=== PATIENT | female | born 1935 | race Caucasian/White ===

== ENCOUNTER 2017-01-26 16:16 | Inpatient (IN) | payer MEDICARE, OTHER ==
[~2017-01-26 16:16] MED LIST: ISOVUE-370 76%-LOCM 1 ML ONE
[2017-01-26 16:54] LABS: #Basophils 0.1 thou/uL (0.0-0.2); #Eosinphils 0.2 thou/uL (0.0-0.7); #Lymphocytes 4.3 thou/uL (1.20-3.40); #Monocytes 1.2 thou/uL (0.11-0.59); %Basophils 0.6 % (0.0-1.0); %Eosinophils 1.5 % (0.0-10.0); %Lymphocytes 28.7 % (21.0-51.0); %Monocytes 8.2 % (0.0-10.0); Mean Platelet Volume 7.5 fL (7.4-10.4); Red Blood Cell (RBC) Count 4.37 mill/uL (4.20-5.40); White Blood Cell (WBC) Count 14.8 thou/uL (4.8-10.8)
--- NOTE | 2017-01-26 17:03 | RAD ---
RADIOGRAPH CHEST 1 VIEW: HISTORY: 81-year-old female with acute chest pain. FINDINGS: There are no air space densities, pulmonary edema, pneumothorax, or cardiomegaly. The lateral costo phrenic angles are sharp. IMPRESSION: 1. No acute cardiopulmonary findings. 2. Cluster of surgical clips in the left anterior chest wall. 3. Status post right shoulder rotator cuff repair. 4. No interval change since 11/10/15. Dyllan sandra POS: [facility]
[2017-01-26 17:15] LABS: ALT (SGPT) 12 U/L (8-55); AST (SGOT) 20 U/L (5-34); Alkaline Phosphatase 55 U/L (40-150); Anion Gap 16 mmol/L (10-20); BUN (Urea Nitrogen) 23 mg/dL (9.8-20.1); Bilirubin, Total 0.4 mg/dL (0.2-1.2); Calc. Creatinine Clearance 0 mL/min (70-130); Carbon Dioxide 21 mmol/L (23-31); Chloride 104 mmol/L (98-107); Estimated GFR-MDRD 69; Globulin 2.7 g/dL (2.4-3.5); Lipase 61 U/L (8-78); Protein, Total 6.6 g/dL (6.0-8.3)
[2017-01-26 17:23] LABS: Troponin I 0.069 ng/mL (< 0.028)
[2017-01-26] MEDS ORDERED: Nitroglycerin 0.4 MG TAB (25 Tab Bottle) ONE (17:24)
[2017-01-26] MEDS ORDERED: Enoxaparin Sodium 80 MG/0.8 ML SYRINGE ONE (19:02)
[2017-01-26] MEDS ORDERED: Ondansetron HCl/PF 4 MG/2 ML Vial IVP PRN (19:17)
[2017-01-26] MEDS ORDERED: Calcium Carbonate 500 MG ChewTAB PO PRN (19:17)
[2017-01-26] MEDS ORDERED: Nitroglycerin 0.4 MG TAB (25 Tab Bottle) PO PRN (19:17)
--- NOTE | 2017-01-26 19:27 | CT ---
CT BRAIN NONCONTRAST: HISTORY: An 81-year-old female, status post acute head trauma from fall due to syncope. FINDINGS: There is no midline shift or any other mass effect. There is no evidence of acute intracranial hemo rrhage, large cortical infarct, obstructive hydrocephalus, or extraaxial fluid collection. The calv arium is intact. There is diffuse parenchymal volume loss. There are low attenuation areas in the white matter. These are nonspecific, but in a patient of this age, they are probably chronic ischem ic white matter changes due to microvascular atherosclerosis. IMPRESSION: 1) No acute intracranial findings. 2) Involutional changes and chronic ischemic white matter changes. 3) Acute, traumatic superficial soft tissue contusion of the left premaxillary face. 4) Severe partial opacification of the left maxillary sinus, moderately worse than on 06/20/2016. zarina [] POS: [facility]
[2017-01-26] MEDS ORDERED: Clopidogrel Bisulfate 300 MG TAB PO SCH (19:30)
--- NOTE | 2017-01-26 19:31 | CT ---
CT MAXILLOFACIAL NONCONTRAST: HISTORY: An 81-year-old female, status post acute facial trauma due to fall. FINDINGS: Soft tissue swelling with edema and contusion of the left premaxillary superficial tissues, extendin g to the left infraorbital region. No evidence of acute fracture. No intraorbital hematoma, edema, or gas. Left maxillary sinus is approximately 90% opacified with soft tissue density material. Th ere is diffuse osseous wall thickening of the left maxillary sinus, indicating chronic, longstanding left maxillary sinusitis. The right maxillary sinus, frontal sinuses, right ethmoid air cells, and sphenoid sinus, are clear. There is mild mucosal thickening in some of the left anterior ethmoid a ir cells. IMPRESSION: 1. No fracture. 2. Acute, traumatic, left infraorbital, premaxillary superficial soft tissue contusion. 3. Chronic left maxillary sinusitis, in an occlusive pattern, with near-total opacification. POS: [facility]
--- NOTE | 2017-01-26 19:41 | CT ---
CTA THORAX WITH CONTRAST: (Computed Tomographic Angiography, chest (noncoronary) with contrast material, and image post proces sing) (PE protocol) HISTORY: An 81-year-old female with syncope and chest pain. TECHNIQUE: IV injection of iodinated contrast: Isovue. Scan acquisition timing attempted to coincide with iodinated contrast bolus reaching maximal density in pulmonary arteries. 3D MIP reconstructions. FINDINGS: Pulmonary thromboembolism: None. Lungs: Clear. Pneumothorax: None. Pleural effusion: None. Thoracic aorta: No aneurysm or dissection. Mediastinum: No lymphadenopathy or other mass. Serenity: No lymphadenopathy or other mass. IMPRESSION: Normal. zarina[] POS: [facility]
[2017-01-26 20:13] LABS: Troponin I 0.058 ng/mL (< 0.028)
[2017-01-26 21:55] VITALS: BMI 27.6
[2017-01-26] MEDS ORDERED: ALPRAZolam 0.25 MG TAB PO SCH (23:15)
[2017-01-26] MEDS ORDERED: diphenhydrAMINE 50 MG CAP PO SCH (23:15)
[2017-01-26] MEDS: Sodium Chloride 0.9% 1,000 ML IV SCH (23:37)
[2017-01-26] MEDS: Carvedilol 3.125 MG TAB PO SCH (23:37)
[2017-01-26] MEDS: Docusate 100 MG CAP PO SCH (23:37)
[2017-01-26 23:54] LABS: Bilirubin Negative (Negative); Blood, Urine Trace (Negative); Glucose, Urine (Dipstick) Negative (Negative); Ketone, Urine Negative (Negative); Nitrite Negative (Negative); Protein, Urine (Dipstick) Negative (Neg-Trace); Urobilinogen 0.2 mg/dL (0.2-1.0)
[2017-01-26 23:58] LABS: Bacteria/HPF None Seen HPF (None Seen); Hyaline Casts/LPF 0-3 HYALINE CAST LPF (0-3 Hyaline); Squamous Epithelial 0-3 HPF (0-3); WBC/HPF 0-3 HPF (0-3)
[2017-01-27 02:37] LABS: #Basophils 0.1 thou/uL (0.0-0.2); #Eosinphils 0.4 thou/uL (0.0-0.7); #Lymphocytes 3.8 thou/uL (1.20-3.40); #Monocytes 0.7 thou/uL (0.11-0.59); %Basophils 0.8 % (0.0-1.0); %Eosinophils 3.7 % (0.0-10.0); %Lymphocytes 38.1 % (21.0-51.0); Mean Platelet Volume 7.4 fL (7.4-10.4); Red Blood Cell (RBC) Count 4.22 mill/uL (4.20-5.40)
[2017-01-27 02:58] LABS: Troponin I 0.053 ng/mL (< 0.028)
[2017-01-27 03:07] LABS: Anion Gap 13 mmol/L (10-20); BUN (Urea Nitrogen) 15 mg/dL (9.8-20.1); Calc. Creatinine Clearance 78 mL/min (70-130); Calcium 8.3 mg/dL (7.8-10.44); Carbon Dioxide 22 mmol/L (23-31); Chloride 106 mmol/L (98-107); Estimated GFR-MDRD 84
--- NOTE | 2017-01-27 06:42 | HP ---
PRIMARY CARE PHYSICIAN: Will Hoff M.D. CHIEF COMPLAINT: Syncopal episode. HISTORY OF PRESENT ILLNESS: This is an 81-year-old pleasant lady who was apparently in usual state of health, had a syncopal episode yesterday in the morning, she did not think much about it, but she had another one at 2:00 in the afternoon. She had called her son who lives at [place] who came in today and today in the morning, she had a similar episode in the bathroom because they were verónica rned they brought her to the emergency room. There was no chest pain preceding or dizziness precedi ng the episode. There is no bowel or urinary incontinence. The second time she fell face first and has a bruise under the left eye. The patient denies any fever or chills, or any dysuria or diarrhe a. Because the family was concerned she was brought to the emergency room for further evaluation an d treatment, duration of the syncopal episode is not known to them. PAST MEDICAL HISTORY: Significant for hyperlipidemia; hypertension; breast cancer; status post radi ation and chemotherapy surgery, which was done in 2001; skin melanoma, status post surgery. MEDICATIONS: Please see MAR. SOCIAL HISTORY: Lives at [facility], does not smoke drink or do recreational d rugs. Drinks a glass of wine now and then. PAST SURGICAL HISTORY: Significant for hysterectomy, lumpectomy in 2001, tonsillectomy, adenoidecto my, right rotator cuff surgery, bladder suspension surgery. ALLERGIES: MORPHINE, which makes her crazy. FAMILY HISTORY: Negative for diabetes and hypertension. REVIEW OF SYSTEMS: Significant for syncopal episode. Otherwise, no fever, no chills, no headache, no eye pain, no hearing loss, no latencies. No cough, no chest pain, diarrhea, dysuria, or polyuria . No memory or mood changes. No neck pain. The patient is usually very independent for activities of daily life. PHYSICAL EXAMINATION: VITAL SIGNS: Blood pressure is 171/82, pulse is 81, respirations 20, temperature afebrile, satting 99% on room air. GENERAL: Patient is lying in bed, in no apparent distress. HEENT: Atraumatic and normocephalic. Pupils are equally round and reactive to light. Extraocular movements are intact. Mucous membranes are moist. NECK: No JVD, as mentioned earlier. SKIN: Showed bruise under the left eye. CHEST: Breath sounds heard. There are no rales or rhonchi. CARDIAC: S1, S2. No murmurs or gallops. ABDOMEN: Soft, nontender. EXTREMITIES: No cyanosis, clubbing or edema. Distal pulses present. NEUROLOGIC: Alert, awake, oriented. No cranial deficits. No sensorimotor deficits. LABORATORY DATA: Chest x-ray is negative. UA is negative. BNP 276. D-dimer was 0.34. Lipase is 61. CK is 69. Troponin is mildly elevated at 0.06. Potassium was 3.3, creatinine is 0.8. WBC cou nt is 14.8, hemoglobin is 14. The patient's brain CT, CTA and facial CT are pending. ASSESSMENT AND PLAN: 1. Syncopal episode x3 to rule out neurocardiogenic causes. We will consult Cardiology. Trend tro ponins, echocardiogram, orthostatic vitals. 2. Status post fall with left facial bruise. We will monitor that and ice it. 3. Elevated troponin, possibly non-ST elevation myocardial infarction. ER already gave her one the rapeutic dose of Lovenox. We will put her on aspirin and one dose of Plavix. 4. Hypokalemia. We will replace that. 5. Hypertension, stable. 6. Hyperlipidemia, stable. 7. Breast cancer, skin melanoma, stable. 8. Sequential compression devices for deep venous thrombosis prophylaxis. I will work with consult julien in further caring for the patient.
[2017-01-27] MEDS ORDERED: FLU VACC TS2017-18 (>65YR) 0.5 ML SYRINGE IM ONE (09:00)
--- NOTE | 2017-01-27 10:47 | PDOC.PN ---
- Subjective Encounter Start Date: 01/27/17 Encounter Start Time: 10:44 Patient seen and examined. No new complaints. No overnight events - Objective MAR Reviewed: Yes Vital Signs & Weight: Vital Signs (12 hours) Temp Pulse Resp BP Pulse Ox 01/27/17 04:00 98.0 F 102 H 20 177/88 H 98 01/27/17 00:00 89 20 156/74 H Weight Weight 171 lb I&O: 01/26/17 01/27/17 01/28/17 06:59 06:59 06:59 Intake Total 590 Balance 590 Result Diagrams: 01/27/17 02:17 01/27/17 02:17 Phys Exam - Physical Examination Constitutional: NAD HEENT: PERRLA bruise seen below lt eye Neck: no JVD Respiratory: no wheezing Cardiovascular: no significant murmur Gastrointestinal: non-tender Musculoskeletal: pulses present Neurological: moves all 4 limbs Psychiatric: A&O x 3 Skin: normal turgor Dx/Plan (1) Syncopal episodes Code(s): R55 - SYNCOPE AND COLLAPSE Status: Acute (2) Elevated troponin Code(s): R74.8 - ABNORMAL LEVELS OF OTHER SERUM ENZYMES Status: Acute (3) HTN (hypertension) Code(s): I10 - ESSENTIAL (PRIMARY) HYPERTENSION Status: Acute (4) Hyperlipidemia Code(s): E78.5 - HYPERLIPIDEMIA, UNSPECIFIED Status: Acute (5) Hypokalemia Code(s): E87.6 - HYPOKALEMIA Status: Acute - Plan * cta- neg * ct brain neg * echo pending * f/u card and neuro rec's
--- NOTE | 2017-01-27 13:38 | CON ---
DATE OF CONSULTATION: 01/27/2017 REASON FOR CONSULTATION: Syncope. HISTORY OF PRESENT ILLNESS: Ms. Montez is a very pleasant 81-year-old woman with no previous history of coronary artery disease who recently presented with syncope. She has had 3 total syncopal episo coleen over the last several days. No predisposing factors present. No signs or symptoms noted prior to the syncopal episode. She did have a facial trauma noted after her last episode. She also compl ained of chest pain. The chest pain has occurred over the last 2-3 months. It occurred every 2-3 d ays, lasting minutes to hours. This pain occurs at night. It may be worse with deep breath. PAST MEDICAL HISTORY: Hyperlipidemia, hypertension, breast cancer, skin melanoma. SOCIAL HISTORY: No tobacco or alcohol use. PAST SURGICAL HISTORY: Hysterectomy, rotator cuff surgery, bladder suspension, lumpectomy, tonsille ctomy. ALLERGIES: MORPHINE. REVIEW OF SYSTEMS: Ten point review of systems reviewed and as above, otherwise negative. PHYSICAL EXAMINATION: GENERAL: Patient is a pleasant female who is in no acute distress. The patient appears her stated age. VITAL SIGNS: Blood pressure 180/88, pulse 100, temperature 98.3. NEUROLOGIC: The patient is alert and oriented times 3 with no focal neurologic deficits. HEENT: Sclerae without icterus. Mouth has moist mucous membranes with normal pallor. NECK: No JVD. Carotid upstroke brisk. No bruits bilaterally. LUNGS: Clear to auscultation with unlabored respirations. BACK: No scoliosis or kyphosis. CARDIAC: Regular rate and rhythm with normal S1 and S2. No S3 or S4 noted. No significant rubs, m urmurs, thrills, or gallops noted throughout the precordium. PMI is not displaced. There is no par asternal heave. ABDOMEN: Soft, nontender, nondistended. No peritoneal signs present. No hepatosplenomegaly. No a bnormal striae. EXTREMITIES: 2+ femoral and 2+ dorsalis pedis pulses. No cyanosis, clubbing, or edema. SKIN: No gross abnormalities. LABORATORY DATA: Creatinine 0.87. Peak troponin 0.069. EKG shows normal sinus rhythm with left bu ndle branch block. IMPRESSION: 1. Syncope. 2. Left bundle branch block. 3. Chest pain. RECOMMENDATIONS: Ms. Montez likely has a sick sinus syndrome given her symptoms in addition to left bundle branch block. I am concerned about her chest pain, we would recommend a noninvasive stress s tudy prior to proceeding with EP study or EP consult. If her stress study is negative for ischemia, we would then proceed with EP consultation in a.m. for possible EP study and a pacemaker versus imp lantable loop recorder versus 30-day event recorder. We will discuss with Dr. Odonnell tomorrow.
[2017-01-27] MEDS ORDERED: AMINOPHYLLINE IVPB SCH (15:30)
[2017-01-27] MEDS ORDERED: Metoprolol Tartrate 5 MG/5 ML VIAL IVP SCH (15:45)
[2017-01-27] MEDS ORDERED: Regadenoson 0.4 MG/5 ML SYRINGE ONE (16:42)
[2017-01-27] MEDS: Docusate 100 MG CAP PO SCH ×2 (17:24→21:07)
[2017-01-27] MEDS: Carvedilol 3.125 MG TAB PO SCH ×2 (17:24→21:08)
[2017-01-27] MEDS: Aspirin 325 MG TAB PO SCH (17:40)
[2017-01-27] MEDS: Enoxaparin Sodium 40 MG/0.4 ML SYRINGE SC SCH (17:40)
[2017-01-27] MEDS: Venlafaxine HCl XR 75 MG CAP PO SCH (17:41)
[2017-01-27] MEDS: Lisinopril 20 MG TAB PO SCH (17:41)
[2017-01-27] MEDS: Sodium Chloride 0.9% 1,000 ML IV SCH (17:46)
[2017-01-27] MEDS ORDERED: Sodium Chloride 0.9% 10 ML ONE (17:51)
--- NOTE | 2017-01-27 18:15 | NM ---
NUCLEAR MEDICINE CARDIAC MYOCARDIAL PERFUSION SPECT EJECTION FRACTION STUDY WALL MOTION CINE: HISTORY: 81-year-old female with hypertension, coronary artery disease and dyslipidemia presents with syncope and chest pain. TECHNIQUE: Number of days: 1 Rest study: Tc99m sestamibi (Cardiolite) dose: 9.8 mCi Pharmacologic stress: Lexiscan dose: 0.4 mg Stress study: Tc99m sestamibi (Cardiolite) dose: 28.5 mCi FINDINGS: CARDIAC (MYOCARDIAL PERFUSION) SPECT There are no reversible myocardial perfusion defects. EJECTION FRACTION STUDY EF = 77% WALL MOTION CINE Normal. IMPRESSION: No evidence of reversible ischemia. ARI Olea POS: [facility]
[2017-01-27] MEDS ORDERED: ALPRAZolam 0.25 MG TAB PO SCH (20:30)
[2017-01-27] MEDS ORDERED: diphenhydrAMINE 25 MG CAP PO SCH (20:30)
--- NOTE | 2017-01-28 00:02 | CON ---
DATE OF CONSULTATION: 01/27/2017 REFERRING PROVIDER: Vamshi Peterson MD REASON FOR CONSULTATION: Syncope. HISTORY OF PRESENT ILLNESS: Ms. Montez is a pleasant 81-year-old female, who has been cons idered for evaluation of a syncopal episode. The patient reports that she had 2 episodes of passing out on day before yesterday. For this reason, she had called her son who lives in [facility], who came to see her and she passed out again in front of him. She passed out for a few seconds. Th ere were no tonic-clonic convulsions, no tongue biting, no loss of bladder control noted. She had n o postictal confusion. She has no prior history of seizure disorder. She has no prior history of h ead trauma or [employer] infection. She has not had any more episode of passing out since being admitted t o the hospital. PAST MEDICAL HISTORY: Significant for hypertension, hyperlipidemia, breast cancer, skin melanoma. PAST SURGICAL HISTORY: Significant for radiation therapy and chemotherapy for breast cancer, and sk in melanoma removal, hysterectomy, lumpectomy, tonsillectomy, adenectomy, right rotator cuff surgery , and bladder suspension surgery. CURRENT MEDICATIONS: Please review MAR. ALLERGIES: Include MORPHINE. FAMILY HISTORY: None significant. SOCIAL HISTORY: She currently lives at [facility]. She denies smoking, alcoho l use, or illicit drug use. REVIEW OF SYSTEMS: As mentioned in the HPI, otherwise negative. PHYSICAL EXAMINATION: VITAL SIGNS: Blood pressure of 168/86, pulse of 120, temperature of 98, respirations of 16, O2 sats of 95% on room air. GENERAL: Well-developed, well-nourished female, in no apparent distress. RESPIRATORY: Clear to auscultation bilaterally. CARDIOVASCULAR: Regular rate and rhythm. NEUROLOGIC: Mental status: The patient is awake, alert, oriented x3. Speech and language: Fluent speech. Cranial nerves: Pupils are 3 mm and reactive. Visual erickson are intact. Extraocular are intact. No nystagmus is noted. Face is symmetric. Tongue and uvula are midline. Motor exam show ed normal tone and bulk with a 5/5 strength in both lower extremities. Sensory: Sensation is intac t and symmetric. Deep tendon reflexes 1-2+ reflexes in both upper and lower extremities. Babinski: Plantar responses flexion bilaterally. Coordination intact to [id number], finger tapping bilaterally. LABORATORY DATA: Reviewed, which included CBC, D-dimer, BMP, lipid profile, troponin, CK-MB, CPK, a nd urinalysis, which is significant for total cholesterol of 285, LDL of 165, triglycerides of 345, HDL of 51, otherwise unremarkable. IMAGING STUDIES: CT head without contrast was reviewed, which showed no acute intracranial abnormal ity. IMPRESSION: Syncope, likely cardiogenic in origin. ASSESSMENT AND PLAN: Ms. Montez is a pleasant 81-year-old female, who presented with recur rent syncopal spells. Based on the description of the spells, this is likely cardiogenic in origin. At this time, I would recommend continuing to follow with Cardiology. No further neurological wor kup needed from my standpoint. Thank you for consultation.
[2017-01-28 06:02] LABS: #Eosinphils 0.5 thou/uL (0.0-0.7); #Lymphocytes 2.3 thou/uL (1.20-3.40); #Monocytes 0.7 thou/uL (0.11-0.59); #Neutrophils 4.2 thou/uL (1.40-6.50); %Basophils 0.4 % (0.0-1.0); %Eosinophils 6.5 % (0.0-10.0); %Lymphocytes 29.4 % (21.0-51.0); %Monocytes 9.6 % (0.0-10.0); Hematocrit 46.6 % (36.0-47.0); Mean Platelet Volume 7.9 fL (7.4-10.4); White Blood Cell (WBC) Count 7.8 thou/uL (4.8-10.8)
[2017-01-28 06:30] LABS: Anion Gap 14 mmol/L (10-20); BUN (Urea Nitrogen) 11 mg/dL (9.8-20.1); Calc. Creatinine Clearance 71 mL/min (70-130); Calcium 9.1 mg/dL (7.8-10.44); Carbon Dioxide 26 mmol/L (23-31); Chloride 103 mmol/L (98-107); Estimated GFR-MDRD 75
[2017-01-28] MEDS: Carvedilol 3.125 MG TAB PO SCH ×2 (10:13→20:21)
[2017-01-28] MEDS: Venlafaxine HCl XR 75 MG CAP PO SCH (10:13)
[2017-01-28] MEDS: Lisinopril 20 MG TAB PO SCH (10:13)
[2017-01-28] MEDS: Aspirin 325 MG TAB PO SCH (10:13)
[2017-01-28] MEDS: Docusate 100 MG CAP PO SCH ×2 (10:14→20:21)
[2017-01-28] MEDS: Enoxaparin Sodium 40 MG/0.4 ML SYRINGE SC SCH (10:14)
[2017-01-28] MEDS ORDERED: Propofol 1,000 MG/100 ML VIAL IV ONE (12:40)
[2017-01-28] MEDS ORDERED: Propofol 200 MG/20 ML VIAL ONE (13:18)
[2017-01-28] MEDS ORDERED: PHENYLEPHRINE-NS 100 MCG/ML 10 ML SYRINGE ONE (13:18)
[2017-01-28] MEDS ORDERED: Labetalol HCl 100 MG/20 ML SYR ONE (13:18)
[2017-01-28] MEDS ORDERED: Isoproterenol 0.2 MG/1 ML AMP ONE (14:03)
[2017-01-28] MEDS ORDERED: Propofol 500 MG/50 ML VIAL ONE (14:32)
[2017-01-28] MEDS ORDERED: Fentanyl 100 MCG/2 ML VIAL ONE (15:54)
[2017-01-28] MEDS ORDERED: Promethazine HCl 25 MG/ML VIAL SLOW IVP PRN (15:58)
[2017-01-28] MEDS ORDERED: Ondansetron HCl/PF 4 MG/2 ML Vial IVP PRN ×2 (15:58→16:03)
[2017-01-28] MEDS ORDERED: Promethazine HCl 25 MG/ML VIAL IM PRN (15:58)
[2017-01-28] MEDS ORDERED: Nitroglycerin 0.4 MG TAB (25 Tab Bottle) SL PRN (16:03)
[2017-01-28] MEDS ORDERED: Silver Sulfadiazine 1% Cream 50 GM JAR TOP PRN (16:03)
[2017-01-28] MEDS ORDERED: Mag-Al 1200 mg/1200 mg/30 ML UDCUP PO PRN (16:03)
[2017-01-28] MEDS ORDERED: Bisacodyl 10 MG SUPP PR PRN (16:03)
[2017-01-28] MEDS ORDERED: traMADol HCl 50 MG TAB PO PRN (16:03)
[2017-01-28] MEDS ORDERED: Bisacodyl 5 MG TAB PO PRN (16:03)
--- NOTE | 2017-01-28 16:57 | PDOC.PN ---
- Subjective Encounter Start Date: 01/28/17 Encounter Start Time: 16:51 Patient seen and examined. No new complaints. No overnight events stress test normal - Objective Resuscitation Status: Resuscitation Status DNR:Do Not Resuscitate MAR Reviewed: Yes Vital Signs & Weight: Vital Signs (12 hours) Temp Pulse Resp BP BP Pulse Ox 01/28/17 16:20 97.6 F 73 20 162/83 H 01/28/17 10:13 163/91 H 01/28/17 08:05 98.4 F 109 H 20 163/91 H 97 Weight Weight 171 lb I&O: 01/27/17 01/28/17 01/29/17 06:59 06:59 06:59 Intake Total 590 240 Output Total 300 Balance 590 -60 Result Diagrams: 01/28/17 04:45 01/28/17 04:45 Phys Exam - Physical Examination Constitutional: NAD HEENT: PERRLA Neck: no JVD Respiratory: no wheezing Cardiovascular: no significant murmur Gastrointestinal: no distention Musculoskeletal: pulses present Psychiatric: A&O x 3 Skin: normal turgor Dx/Plan (1) Syncopal episodes Code(s): R55 - SYNCOPE AND COLLAPSE Status: Acute Comment: ? due to sss (2) Elevated troponin Code(s): R74.8 - ABNORMAL LEVELS OF OTHER SERUM ENZYMES Status: Acute (3) HTN (hypertension) Code(s): I10 - ESSENTIAL (PRIMARY) HYPERTENSION Status: Acute (4) Hyperlipidemia Code(s): E78.5 - HYPERLIPIDEMIA, UNSPECIFIED Status: Acute (5) Hypokalemia Code(s): E87.6 - HYPOKALEMIA Status: Acute - Plan * cont current mx * f/u dr grimes plan
[2017-01-28] MEDS: Cephalexin 250 MG CAP PO SCH ×2 (17:47→20:21)
[2017-01-28] MEDS ORDERED: HYDROcodone/Acetaminophen 5/325 mg Tablet PO PRN (18:15)
[2017-01-28] MEDS: hydrALAZINE 20 MG/ML VIAL SLOW IVP PRN (18:36)
[2017-01-28] MEDS ORDERED: Sodium Chloride 0.9% 10 ML ONE (18:38)
[2017-01-28] MEDS: HYDROcodone/Acetaminophen 5/325 mg Tablet PO PRN (18:41)
--- NOTE | 2017-01-28 19:47 | CON ---
DATE OF SERVICE: 01/28/2017 ELECTROPHYSIOLOGY CONSULTATION REPORT REFERRING PHYSICIAN: Dr. Raúl Birmingham. I am seeing Mrs. Montez at [facility] telemetry floor as an electrophysiology specification consultant for the following problems: 1. Recurrent syncopal spells. 2. Frequent premature ventricular contractions in bigeminal fashion on the initial EKG. 3. Baseline right bundle branch block. 4. Negative cardiac workup so far with LVEF 55-60% and no ischemia on Lexiscan stress test. 5. Past history with coronary artery risk factors including hyperlipidemia and hypertension. 6. Remote history of breast cancer, status post chemotherapy and surgery and radiation in 2001. ALLERGIES: MORPHINE. MEDICATIONS AT HOME: Included multivitamins, Tylenol p.r.n., venlafaxine, omeprazole, metoprolol, a rtificial tears, diphenhydramine, probiotic, lisinopril, glucosamine, Boswellia, Osteo Bi-Flex, alpr azolam. Of note, metoprolol has recently decreased hence history of depression. SUBJECTIVE: Ms. Montez is here because of recurrent syncopal spell. She had about 3 episodes over t he last 3 days prior to her admission. All these episodes were preceded by ways of dizziness, but e ventually culminating a some loss of consciousness. Episode not associated with incontinence or sei zures. The episodes are severe enough to have significant facial trauma, falling on her face. Sign ificant bruising is noted from the last episode. She cannot recall any coronary palpitations; some atypical chest tightness sensations are noted. No fever, chills or cough. No stroke-like symptoms, no diarrhea, vomiting, normal p.o. fluid intake are noted. the rest of 12-point review of system i s otherwise unremarkable PAST MEDICAL HISTORY: As above. Also has history of skin melanoma post-excision. SOCIAL HISTORY: Patient is in [employer] independent [facility] facility. Drinks alcohol on social bas is only. Denies smoking or drug use. FAMILY HISTORY: Negative for diabetes and hypertension. OBJECTIVE DATA: VITAL SIGNS: Blood pressure 163/91, heart rate 109, respirations 20, temperature 98.4 degrees Fahre nheit. GENERAL: Reveals alert and oriented elderly woman who appears younger than her stated age, in no ap parent distress. NECK: Supple. Jugular veins are not distended. No carotid bruits are heard. CHEST: Coarse, no crackles. CARDIOVASCULAR: Heart sounds are regular to rate and rhythm. No murmur or gallop. ABDOMEN: Benign. Bowel sounds positive. EXTREMITIES: Lower extremities without edema, clubbing or cyanosis. DATABASE: EKGs reviewed. Initial EKG reveals sinus rhythm with frequent bigeminy and PVCs. Subseq uent EKG reveals sinus rhythm. All EKGs show a left bundle branch block pattern. Appropriate ST-T swings. LABORATORY DATA: White cell count initially 14.8, 7.8, hemoglobin 14.2, platelet count is 290 . Sodium 139, potassium 3.8, BUN is 11, creatinine is 0.74, repeat troponins are 0.069, 0.058, and 0.053, borderline elevated. Brain CT was unremarkable except for the hematoma around the ocular area. No ischemic white matter changes are seen. The chest x-ray was showing signs of prior left breast surgery. Evidence of right shoulder rotator cuff repair signs are seen. ASSESSMENT AND PLAN: Ms. Montez is a pleasant 81-year-old woman without much cardiac history who pre sented with recurrent syncopal spell which do impress me as possibly cardiogenic. Although she has frequent PVCs, but her rates are not extreme, the presentation by itself does not explain her event. Tachycardic and bradyarrhythmias could be potentially causing her frequent recurrent syncopal spel ls and she also has signs of conduction disease on her EKG. So far cardiac workup otherwise unremar kable, I discussed the potential treatment options with her. Considering arrhythmias, potentially t he recent decrease of her beta ninoska therapy might have been the factor which could have brought t hese events out to the daylight. To further evaluate her tendency for arrhythmias as well as to ass ess the extent of her conduction disease, an EP study would be very reasonable in this lady If foca l arrhythmias are seen, possible ablation procedure were also could be a consideration. On the othe r hand, significant conduction disease present or further AV zhou blocking agents are necessary for controlling her arrhythmias which might require pacing support, possible device therapy, also consi deration depending on the findings, pacemaker or defibrillator could be also considered. If no definite course or abnormality found, a loop recorder implant also a reasonable choice as well . I discussed these tests, the risks, benefits, and potential outcomes from the procedures with the penny lozoyant and the family was present. Risks and benefits detailed including a chance of bleeding, infec tion, pneumothorax, tamponade, recurrences all detailed. They understand agreeing to proceed. We w ill schedule her on for the nearest time. Thank you again for allowing me to participate in the care of this patient.
[2017-01-28] MEDS: Temazepam 15 MG CAP PO PRN (20:22)
[2017-01-28] MEDS ORDERED: ALPRAZolam 0.25 MG TAB PO SCH (21:30)
--- NOTE | 2017-01-28 21:41 | OP ---
DATE OF SERVICE: 01/28/2017 ELECTROPHYSIOLOGY STUDY REFERRING PHYSICIAN: Raúl Birmingham M.D. REASON FOR PROCEDURE: Ms. Montez is an 81-year-old female who presented with recurrent syncopal spell. She has got left bundle branch block. Cardiac workup otherwise negative. Normal LVEF and no ischemia on nuclear stress test. She also has frequent PVCs on initial EKGs in a bigemini fashion. She is here for EP study to evaluate her conduction disease and inducible arrhythmias. PROCEDURE: The patient received deep sedation by anesthesia specialist. After adequate level of sedation achieved, a synchronized right femoral vein was prepped and draped and anesthetized using subcutaneous lidocaine. With ultrasound guidance, the right femoral vein was cannulated and an 8-Dominican short sheath was introduced through which a 7-Dominican decapolar CS catheter was advanced to the right atrium, His bundle, right ventricle and ventricular and eventually the CS area. Pacing, mapping and recording was performed in each location. The baseline cycle 630 milliseconds sinus rhythm, NC 187, QRS 131, QT 343, AH 129, HV 56 milliseconds. The sinus node recovery time is 166 milliseconds. The AV Wenckebach cycle length was about 240 milliseconds, retrograde Wenckebach cycle length was 400 milliseconds noted. AV zhou ERP was 500/200. AV ERP 500/200 was measured. No dual AV zhou physiology was present. Atrial burst therapies demonstrated no inducible tachyarrhythmias. No atrial fibrillation or flutter or SVTs were induced. The double atrial extrastimulus was also induced, no significant tachyarrhythmia. Following that a full ventricular stimulation study was performed with 500/400, developed a 3 ventricular extrastimuli decremented to refractoriness. It was deployed and repeated with a 400 milliseconds drivetrain with up to preventricular extra stimuli. No sustained ventricular arrhythmias are seen. Isuprel was then turned on and both ventricular and atrial studies were repeated on Isuprel 2 mcg. No inducible arrhythmias were seen. Following that isuprel was turned off. The pediatric studies of the HV interval were seen. The intermittent Mobitz type 2 second degree AV block were seen, also varying morphology of the QRS were seen, left bundle pattern more narrowed. QRS is also noted suggestive of equal delay in both bundle branches and also right bundle pattern EKGs are also noted. 2:1 AV block was demonstrated. CONCLUSION: 1. Intermittent Mobitz type 2 second degree AV block. 2. Normal sinus zhou function. 3. Baseline bundle branch block with normal baseline HV. 4. Frequent right ventricular outflow tract PVCs were seen with transition at V2 to V3, but with no inducible atrial or ventricular tachyarrhythmias demonstrated. PLAN: At this point, I think enough evidence exits forconduction disdease, which intermittently could exhibit complete block leasding to her syncopal spells. We are planning to proceed with pacemkaer implantation and thenresume either beta ninoska therapy or calcium channel ninoska therapy with pacemaker backup. LUIS
[2017-01-29] MEDS: HYDROcodone/Acetaminophen 5/325 mg Tablet PO PRN ×4 (01:28→16:30)
[2017-01-29] MEDS: hydrALAZINE 20 MG/ML VIAL SLOW IVP PRN (04:48)
--- NOTE | 2017-01-29 08:34 | RAD ---
PORTABLE AP CHEST: Date: 01-29-17 History: Post AICD. Comparison: 01-26-17 FINDINGS: There has been interval placement of a dual-lead left subclavian cardiac pacemaking devise. There is a large left sided pneumothorax with collapse of the left lung. Surgical clips overlie the left mid lung zone. Right lung remains clear. Cardiac silhouette and pulmonary vasculature are within normal limits. There is no other interval change. IMPRESSION: Interval placement of a left subclavian cardiac pacemaking device with a large left sided pneumothor ax now seen. These findings were discussed with Nick, nurse in charge of the [facility] the [facility] floor on 01/29/17 at 0741 hours. POS: [facility]
[2017-01-29] MEDS: ALPRAZolam 0.25 MG TAB PO SCH ×2 (09:41→20:11)
[2017-01-29] MEDS: Aspirin 325 MG TAB PO SCH (10:28)
[2017-01-29] MEDS: Docusate 100 MG CAP PO SCH ×2 (10:28→20:11)
[2017-01-29] MEDS: Cephalexin 250 MG CAP PO SCH ×4 (10:28→20:10)
[2017-01-29] MEDS: Enoxaparin Sodium 40 MG/0.4 ML SYRINGE SC SCH (10:30)
[2017-01-29] MEDS: Carvedilol 6.25 MG TAB PO SCH ×2 (10:39→20:10)
--- NOTE | 2017-01-29 10:52 | RAD ---
PORTABLE AP CHEST: Date: 01-29-17 History: Left sided pneumothorax. Comparison: 01-29-17 at 0726 hours. FINDINGS: A dual-lead left subclavian cardiac pacemaking device remains in place. Again noted is a large left sided pneumothorax with collapse of a portion of the left lung. There is no shift of the mediastinal structures to the right. Right lung remains clear. Surgical clips again overlie the left lateral mi dchest. Vascular calcification is seen in the thoracic aorta. No other interval change. IMPRESSION: Persistent large left sided pneumothorax. POS: [facility]
[2017-01-29] MEDS: Lisinopril 20 MG TAB PO SCH (11:17)
[2017-01-29] MEDS: Venlafaxine HCl XR 75 MG CAP PO SCH (11:20)
--- NOTE | 2017-01-29 12:55 | PDOC.PN ---
- Subjective Encounter Start Date: 01/29/17 Encounter Start Time: 12:53 was anxious through out night c/o chest pain no n/v no f/c xr shows lt large pn thorax - Objective Resuscitation Status: Resuscitation Status DNR:Do Not Resuscitate MAR Reviewed: Yes Vital Signs & Weight: Vital Signs (12 hours) Temp Pulse Resp BP BP Pulse Ox 01/29/17 11:17 134/64 01/29/17 10:39 134/64 01/29/17 10:00 97.8 F 01/29/17 08:00 97.4 F L 120 H 22 H 122/67 93 L 01/29/17 04:55 98.7 F 117 H 22 H 168/84 H 92 L 01/29/17 04:48 114 H 200/106 H Weight Weight 171 lb 6.4 oz Most Recent Monitor Data Heart Rate from ECG 119 NIBP 105/69 NIBP BP-Mean 88 Respiration from ECG 21 SpO2 92 I&O: 01/28/17 01/29/17 01/30/17 06:59 06:59 06:59 Intake Total 240 100 240 Output Total 300 155 Balance -60 100 85 Result Diagrams: 01/28/17 04:45 01/28/17 04:45 Phys Exam - Physical Examination Constitutional: NAD HEENT: PERRLA Neck: no JVD Respiratory: no rales decreased bs on lt side. Cardiovascular: no significant murmur Gastrointestinal: no distention Musculoskeletal: pulses present Psychiatric: A&O x 3 Skin: normal turgor Dx/Plan (1) Syncopal episodes Code(s): R55 - SYNCOPE AND COLLAPSE Status: Acute Comment: ? due to sss (2) Elevated troponin Code(s): R74.8 - ABNORMAL LEVELS OF OTHER SERUM ENZYMES Status: Acute (3) HTN (hypertension) Code(s): I10 - ESSENTIAL (PRIMARY) HYPERTENSION Status: Acute (4) Hyperlipidemia Code(s): E78.5 - HYPERLIPIDEMIA, UNSPECIFIED Status: Acute (5) Hypokalemia Code(s): E87.6 - HYPOKALEMIA Status: Acute (6) Pneumothorax, acute Code(s): J93.83 - OTHER PNEUMOTHORAX Status: Acute - Plan * f/u pulm plan for mx of ptx * transfer to icu * s/p ppm on 01/28/17 * f/u card plan
--- NOTE | 2017-01-29 13:32 | OP ---
DATE OF PROCEDURE: 01/29/2018 Ms. Montez's left lateral breast was cleansed with chlorhexidine. Five mL 1% lidocaine was used to a nesthetize the skin. The pleura was entered with a 19 gauge needle, air was aspirated. The pleura was anesthetized with the remainder of the lidocaine. A small incision was made with a #11 blade. An 8 Scottish catheter was easily inserted over the rib into the left lateral pleural space and the tu be was connected to a Heimlich valve. It was sewn in place and a dressing was applied. The tube wa s then connected to a Pleur-Evac. The lung is not completely expanded. We will repeat a radiograph at 1 o'clock. I will consider placement of another catheter. The other catheter did not appear oc cluded as the Heimlich valve rubber bill was letting air out with respiratory excursion.
--- NOTE | 2017-01-29 14:24 | PRG ---
DATE OF SERVICE: 01/29/2017 REFERRING PHYSICIAN: Dr. Birmingham SUBJECTIVE: Ms. Montez has developed some discomfort overnight otherwise she remained mostly asympt omatic, but this morning her x-ray was discovered to have significant pneumothorax present. She wa s transferred to the ICU and oxygen was implemented. She had a small chest tube/valve was placed by Dr. Lopez. She is being followed for this by him. Currently, she has no new symptoms. She is not dizzy. Denies significant dyspnea. She is oxygenat ing well on 4 liters of nasal cannula at 94%. She has no PND, orthopnea. The device site seems to be without reaction. She had some moderate amount of oozing from the chest tube insertion site on t he bandage. OBJECTIVE DATA: VITAL SIGNS: Blood pressure 105/69, heart rate is 119, respiratory rate is 21. The patient is afeb rile. GENERAL: Alert and oriented woman in no apparent distress. NECK: Supple. Jugular veins not distended. CHEST: Coarse with hollow breath sounds in left side noted. Left precordial pacemaker insertion si te is well healed. ABDOMEN: Benign. Bowel sounds positive. EXTREMITIES: Lower extremities without edema, clubbing or cyanosis. DATABASE: The telemetry strips reveals sinus rhythm with occasional PVCs and ATV conduction is seen with left bundle pattern, occasional pacing also seen. The interrogation of device reveals a Medtronic Advisa MRI compatible dual chamber pacemaker. Batte ry longevity is at beginning of life at 3.07 volts, the sensing is 7.4 millivolts in the atrium and 7.3 millivolts in the right ventricle noted. The patient is currently 100% A sensed, V sensed. The current program is 60-110 MVP mode on. The chest x-ray shows large left side pneumothorax. ASSESSMENT AND PLAN: Ms. Montez is an 81-year-old woman who has a history of recurrent syncopal spel ls. She has significant left bundle branch block and during EP study, able to demonstrate a variabl e AV block, Mobitz type 2 second degree AV block also demonstrated. She underwent a dual-chamber pa cemaker implantation which is complicated with pneumothorax. Currently a small chest tube was place d. She might require additional chest tube placed by surgery if Dr. Lopez deems it necessary. Curr ently chemically otherwise stable. Her heart rate is somewhat tachycardic after stabilization from the pneumothorax standpoint, might c onsider resuming her beta ninoska medication or increasing it as tolerated, that would verapamil as well. We will continue to follow. I discussed with the nurse, family and patient and Dr. Lopez.
--- NOTE | 2017-01-29 15:00 | OP ---
Ms. Betty Montez's chest radiograph showed no inflation of the left lung. The tube appeared to segovia ve migrated out of the pleural space. I suspect because of lateral approach in her generous breast tissue. Left anterior chest was prepped below the pacemaker. Rib was located. The skin and pleura l space was anesthetized with 10 mL of 1% lidocaine. Pleural space was entered with an 8 [place] Islander cat heter. Good Heimlich valve excursion was noted. This was left connected to the Heimlich valve, hop efully with the tube anteriorly. Her lung reinflate, we will check a chest x-ray. The old tube was removed intact.
--- NOTE | 2017-01-29 15:32 | RAD ---
PORTABLE AP CHEST: Date: 01/29/17 HISTORY: Post chest tube insertion. COMPARISON: 01/29/17 at 1017 hours. FINDINGS: Left-sided cardiac pacemaking device remains in place. There is a small caliber left-sided thoracost isaac tube again noted overlying the lateral left chest. This overlies the ribs and does not appear to be definitely within the pleural space based on this examination. In addition, a large left-sided p neumothorax persists with collapse of the majority of the left lung. No significant shift of the med iastinal structures is present. Right lung remains clear. Subcutaneous emphysema along the left late ral chest and extending into the supraclavicular region is again present. No other interval change. IMPRESSION: Left-sided thoracostomy tube in place which appears to be outside of the pleural space, and the larg e left-sided pneumothorax persists. The above findings were discussed with Lissette, nurse in CCU in charge of the patient's hospital care , on 01/29/17 at 1341 hours. CODE CR. POS: [facility]
--- NOTE | 2017-01-29 15:52 | RAD ---
RADIOGRAPH CHEST 1 VIEW: Date: 01-29-17 Time: 2:08 p.m. HISTORY: 81-year-old female follow up pneumothorax. COMPARISON: 01-29-17 at 1:08 p.m. FINDINGS: A left lateral small caliber pleural catheter was been placed, the superior distal tip of which is o bscured by the generator for the pacemaker. The previously severely collapsed left lung has almost c ompletely re-inflated. The previously demonstrated large left pneumothorax is either completely or a lmost completely resolved. It is no longer visible. No evidence of pulmonary edema, but there are di ffusely prominent interstitial markings bilaterally and symmetrically. No cardiomegaly. Subcutaneous emphysema adjacent to the left chest wall and left supraclavicular neck again noted. IMPRESSION: Interval complete or almost complete resolution of the left pneumothorax upon placement of a small c aliber left pleural catheter. ARI POS: [facility]
--- NOTE | 2017-01-29 20:11 | CON ---
DATE OF CONSULTATION: 01/29/2017 HISTORY OF PRESENT ILLNESS: Ms. Montez is a pleasant 81-year-old female, who had an EP study yesterd ay and pacemaker implantation yesterday. She was found to have a pneumothorax this morning. She wa s not symptomatic, I was consulted. PAST MEDICAL HISTORY: Remarkable for lipid disorder, hypertension, breast cancer, and history of me lanoma. PAST SURGICAL HISTORY: Hysterectomy, rotator cuff surgery, bladder suspension, lumpectomy, and tons illectomy. Her lumpectomy was in the left superior outer quadrant of her breast under where her pac emaker went in. SOCIAL HISTORY: She is a nonsmoker, nondrinker. ALLERGIES: She reports intolerance to MORPHINE. Her daughter says she gets very mean when she rece hilario morphine. REVIEW OF SYSTEMS: Otherwise negative. She denies chest pain or shortness of breath. PHYSICAL EXAMINATION: GENERAL: She was transferred to the ICU on arrival. VITAL SIGNS: Blood pressure was 134/64, heart rate was in the 100 range. HEENT: Pupils are equal. NECK: Supple, no lymphadenopathy. LUNGS: She had no breath sounds in the left, right lung was clear. HEART: Regular rhythm with premature beats. ABDOMEN: Soft and nontender. EXTREMITIES: With asymmetry. LABORATORY DATA: There is no new lab today. Electrolytes were normal yesterday. CBC was normal ye sterday. IMPRESSION: Pneumothorax after placement of the pacer. PLAN: Small bore catheter with Pleur-evac. Hopefully, she will reexpand with that, if not placemen t of a larger tube via CT surgery, it would be the next step.
[2017-01-29] MEDS: diphenhydrAMINE 25 MG CAP PO PRN (20:13)
[2017-01-29] MEDS: HYDROcodone/Acetaminophen 10/325 mg Tablet PO PRN (23:54)
[2017-01-30] MEDS ORDERED: Fentanyl 100 MCG/2 ML VIAL SLOW IVP PRN (00:37)
[2017-01-30] MEDS ORDERED: ALPRAZolam 0.25 MG TAB PO SCH (00:45)
[2017-01-30] MEDS ORDERED: Ketorolac Tromethamine 30 MG/ML VIAL IVP SCH (01:00)
[2017-01-30 01:47] LABS: ALT (SGPT) 13 U/L (8-55); AST (SGOT) 22 U/L (5-34); Alkaline Phosphatase 54 U/L (40-150); Anion Gap 11 mmol/L (10-20); BUN (Urea Nitrogen) 20 mg/dL (9.8-20.1); Bilirubin, Total 0.9 mg/dL (0.2-1.2); Calc. Creatinine Clearance 74 mL/min (70-130); Calcium 8.6 mg/dL (7.8-10.44); Carbon Dioxide 26 mmol/L (23-31); Chloride 100 mmol/L (98-107); Estimated GFR-MDRD 79; Globulin 2.3 g/dL (2.4-3.5); Magnesium 1.8 mg/dL (1.6-2.6); Protein, Total 5.8 g/dL (6.0-8.3)
--- NOTE | 2017-01-30 08:30 | RAD ---
PORTABLE AP CHEST: Date: 01-30-17 History: Left pneumothorax, thoracostomy tube. Comparison: 01-29-17 at 1408 hours. FINDINGS: Small caliber left sided thoracostomy tube is again noted in place. There is suggestion of a very ti ny left apical pneumothorax. Subcutaneous emphysema is again seen along the lateral left chest exten ding to the left supraclavicular region. Right lung remains clear. Cardiac silhouette and pulmonary vasculature is within normal limits. Dual-lead left subclavian pacemaking device is stable in positi on. IMPRESSION: 1. Left sided thoracostomy tube, stable in position, with very tiny left apical pneumothorax seen. 2. Persistent subcutaneous emphysema. POS: [facility]
[2017-01-30] MEDS: Lisinopril 20 MG TAB PO SCH (09:00)
[2017-01-30] MEDS: Cephalexin 250 MG CAP PO SCH ×4 (09:09→19:43)
[2017-01-30] MEDS: Carvedilol 6.25 MG TAB PO SCH (09:10)
[2017-01-30] MEDS: ALPRAZolam 0.25 MG TAB PO SCH ×2 (09:10→19:42)
[2017-01-30] MEDS: Aspirin 325 MG TAB PO SCH (09:10)
[2017-01-30] MEDS: Enoxaparin Sodium 40 MG/0.4 ML SYRINGE SC SCH (09:10)
[2017-01-30] MEDS: Docusate 100 MG CAP PO SCH ×2 (09:11→19:43)
[2017-01-30] MEDS: Venlafaxine HCl XR 75 MG CAP PO SCH (09:17)
--- NOTE | 2017-01-30 13:08 | PDOC.PN ---
- Subjective Encounter Start Date: 01/30/17 Encounter Start Time: 13:05 doing well with chest tube no f/c no sob no n/v - Objective Resuscitation Status: Resuscitation Status DNR:Do Not Resuscitate MAR Reviewed: Yes Vital Signs & Weight: Vital Signs (12 hours) Temp Pulse Resp BP Pulse Ox 01/30/17 09:10 107/73 01/30/17 07:52 98.1 F 100 19 95 01/30/17 07:33 100 01/30/17 07:00 98.1 F 01/30/17 05:00 97.8 F Weight Weight 171 lb 6.4 oz Most Recent Monitor Data Heart Rate from ECG 93 NIBP 121/69 NIBP BP-Mean 101 Respiration from ECG 24 SpO2 99 I&O: 01/29/17 01/30/17 01/31/17 06:59 06:59 06:59 Intake Total 100 3283 180 Output Total 845 135 Balance 100 2438 45 Result Diagrams: 01/28/17 04:45 01/30/17 01:20 Phys Exam - Physical Examination Constitutional: NAD HEENT: PERRLA Neck: no nodes Respiratory: no wheezing chest tube in place Cardiovascular: RRR Gastrointestinal: non-tender Musculoskeletal: pulses present Neurological: normal sensation Psychiatric: A&O x 3 Skin: normal turgor Dx/Plan (1) Syncopal episodes Code(s): R55 - SYNCOPE AND COLLAPSE Status: Acute Comment: ? due to sss (2) Elevated troponin Code(s): R74.8 - ABNORMAL LEVELS OF OTHER SERUM ENZYMES Status: Acute (3) HTN (hypertension) Code(s): I10 - ESSENTIAL (PRIMARY) HYPERTENSION Status: Acute (4) Hyperlipidemia Code(s): E78.5 - HYPERLIPIDEMIA, UNSPECIFIED Status: Acute (5) Hypokalemia Code(s): E87.6 - HYPOKALEMIA Status: Acute (6) Pneumothorax, acute Code(s): J93.83 - OTHER PNEUMOTHORAX Status: Acute - Plan * doing well on chest tube * f/u pulm and card plan * s/p ppm for heart block
[2017-01-30] MEDS: Sodium Chloride 0.9% 1,000 ML IV SCH ×2 (13:18→17:14)
[2017-01-30] MEDS: HYDROcodone/Acetaminophen 10/325 mg Tablet PO PRN (13:19)
[2017-01-30] MEDS ORDERED: Sodium Chloride 0.9% 1,000 ML IV SCH (14:17)
--- NOTE | 2017-01-30 14:43 | PRG ---
DATE OF SERVICE: 01/30/2017 SUBJECTIVE: Ms. Montez did well overnight. She has no new complaints. A chest tube was clamped this morning using the stopcock. A noon x-ray shows no recurrence of her pneumothorax. OBJECTIVE: VITAL SIGNS: Heart rate 106, blood pressure 104/61, respiratory rate is in the teens to low 20s. LUNGS: Clear. HEART: Regular rhythm. LABORATORY DATA: Electrolytes are normal with the exception of sodium of 133. She drank a lot more water yesterday. I suspect this is why her sodium dropped. She had 3283 in. IMPRESSION: 1. Status post pneumothorax. I will leave her chest tube clamped, we will remove it in the morning if her radiograph is stable. 2. Status post pacemaker. 3. Mild hyponatremia secondary to water intake.
--- NOTE | 2017-01-30 14:44 | RAD ---
CHEST 1 VIEW: HISTORY: Pneumothorax. COMPARISON: Chest 1 view same day. FINDINGS: Subcutaneous emphysema along the left hemithorax and left neck is similar. There appears to be a dr ainage catheter projecting over the left hemithorax. No large left-sided pneumothorax is appreciated. Mild volume loss left lower lobe. IMPRESSION: No significant pneumothorax appreciated in the left hemithorax. POS: [facility]
--- NOTE | 2017-01-30 14:45 | EKG ---
Test Reason : STAT Blood Pressure : / mmHG Vent. Rate : 123 BPM Atrial Rate : 123 BPM P-R Int : 172 ms QRS Dur : 122 ms QT Int : 312 ms P-R-T Axes : 051 018 160 degrees QTc Int : 446 ms Sinus tachycardia with Premature atrial complexes with Abberant conduction Possible Left atrial enlargement Left bundle branch block Abnormal ECG Confirmed by AUGUSTO VALDES ([id number]) on 01/30/2017 2:45:23 PM Referred By: Confirmed By:AUGUSTO VALDES
[2017-01-30] MEDS ORDERED: Digoxin 0.125 MG TAB PO SCH (18:15)
--- NOTE | 2017-01-30 18:54 | PRG ---
DATE OF SERVICE: 01/30/2017 SUBJECTIVE: Ms. Montez recently had a chest tube placement. This is not been removed. She is doing well. No chest pain or pressure noted. OBJECTIVE: VITAL SIGNS: Blood pressure 95/60, pulse 110 and respirations 20. LUNGS: Decreased breath sounds on the left versus right. HEART: Regular rate and rhythm, tachycardic. ABDOMEN: Soft, nontender and nondistended. EXTREMITIES: No edema. PERTINENT LABORATORY DATA: Hemoglobin 15.6. Creatinine 0.7. IMPRESSION: 1. Syncope. 2. Sick sinus syndrome. 3. Status post pacemaker placement, complicated by pneumothorax. 4. Tachycardia. RECOMMENDATIONS: Ms. Montez's heart rate has improved. She has been followed by Dr. Odonnell and by Dr. Vinicius Lopez, for recent pneumothorax. She is currently on Coreg and we will discontinue in place of Toprol for less vasodilatory effect.
[2017-01-30] MEDS: Temazepam 15 MG CAP PO PRN (19:43)
[2017-01-31] MEDS ORDERED: Metoprolol Tartrate 25 MG TAB PO SCH (00:45)
[2017-01-31] MEDS: Metoprolol Tartrate 25 MG TAB PO SCH ×3 (05:02→20:11)
[2017-01-31] MEDS: Aspirin 325 MG TAB PO SCH (08:23)
[2017-01-31] MEDS: Docusate 100 MG CAP PO SCH ×2 (08:23→20:10)
[2017-01-31] MEDS: Lisinopril 20 MG TAB PO SCH (08:23)
[2017-01-31] MEDS: ALPRAZolam 0.25 MG TAB PO SCH ×2 (08:24→20:10)
[2017-01-31] MEDS: Cephalexin 250 MG CAP PO SCH ×4 (08:24→20:10)
[2017-01-31] MEDS: Enoxaparin Sodium 40 MG/0.4 ML SYRINGE SC SCH (08:25)
[2017-01-31] MEDS ORDERED: Digoxin 0.125 MG TAB PO SCH (09:00)
[2017-01-31] MEDS: Venlafaxine HCl XR 75 MG CAP PO SCH (09:14)
--- NOTE | 2017-01-31 09:20 | RAD ---
PORTABLE CHEST: DATE: 01/31/17. PROVIDED CLINICAL HISTORY: Pneumothorax. FINDINGS: Comparison is made with the examination dated 01/30/17. Cardiac and mediastinal silhouette is uncha nged in appearance. Vascular calcification involves the aortic arch. Left subclavian cardiac pacin g device is redemonstrated and in similar position. Subcutaneous emphysema involving the left chest wall is redemonstrated. No focal consolidation, pleural fluid, or pneumothorax apparent. Surgical clips overlie the left mid chest. A small-caliber left-sided chest tube is again seen. IMPRESSION: Stable radiographic appearance of the chest. POS: [facility]
--- NOTE | 2017-01-31 12:26 | PRG ---
DATE OF SERVICE: 01/31/2017 SUBJECTIVE: Ms. Montez is doing better. Her lung appears to be expanded on the left side. Her hear t rate also appears improved. OBJECTIVE: VITAL SIGNS: Blood pressure 169/92, pulse 99, temperature afebrile. LUNGS: Clear to auscultation. HEART: Regular rate and rhythm. ABDOMEN: Soft, nontender, and nondistended. EXTREMITIES: No edema. PERTINENT LABORATORY DATA: Hemoglobin 15.6. IMPRESSION: 1. Sick sinus syndrome. 2. Syncope, status post pacemaker placement. 3. Pneumothorax. 4. Tachycardia. RECOMMENDATIONS: 1. Continue metoprolol at 25 mg b.i.d. 2. Discontinue digoxin. 3. Further recommendations on pneumothorax per Pulmonary.
--- NOTE | 2017-01-31 12:29 | PDOC.PN ---
- Subjective Encounter Start Date: 01/31/17 Encounter Start Time: 12:28 Patient seen and examined. No new complaints. No overnight events - Objective Resuscitation Status: Resuscitation Status DNR:Do Not Resuscitate MAR Reviewed: Yes Vital Signs & Weight: Vital Signs (12 hours) Temp Pulse Resp BP Pulse Ox 01/31/17 11:28 99 01/31/17 10:33 102 H 01/31/17 08:23 129/64 01/31/17 08:00 98.2 F 102 H 18 100 01/31/17 07:00 98.2 F 01/31/17 03:00 98.7 F Weight Weight 167 lb 1.766 oz Most Recent Monitor Data Heart Rate from ECG 86 NIBP 116/62 NIBP BP-Mean 88 Respiration from ECG 20 SpO2 94 I&O: 01/30/17 01/31/17 02/01/17 06:59 06:59 06:59 Intake Total 3283 1851 120 Output Total 845 2540 363 Balance 2438 -689 -243 Result Diagrams: 01/28/17 04:45 01/30/17 01:20 Phys Exam - Physical Examination Constitutional: NAD HEENT: moist MMs Neck: no nodes Respiratory: no rales chest tube in place Cardiovascular: no significant murmur Gastrointestinal: non-tender Musculoskeletal: pulses present Neurological: moves all 4 limbs Psychiatric: A&O x 3 Dx/Plan (1) Syncopal episodes Code(s): R55 - SYNCOPE AND COLLAPSE Status: Acute Comment: ? due to sss (2) Elevated troponin Code(s): R74.8 - ABNORMAL LEVELS OF OTHER SERUM ENZYMES Status: Acute (3) HTN (hypertension) Code(s): I10 - ESSENTIAL (PRIMARY) HYPERTENSION Status: Acute (4) Hyperlipidemia Code(s): E78.5 - HYPERLIPIDEMIA, UNSPECIFIED Status: Acute (5) Hypokalemia Code(s): E87.6 - HYPOKALEMIA Status: Acute (6) Pneumothorax, acute Code(s): J93.83 - OTHER PNEUMOTHORAX Status: Acute - Plan * cont current mx * f/u card and pulm plan
[2017-01-31] MEDS ORDERED: Bisacodyl 5 MG TAB PO PRN (13:17)
[2017-01-31 15:08] LABS: Anion Gap 14 mmol/L (10-20); BUN (Urea Nitrogen) 17 mg/dL (9.8-20.1); Calc. Creatinine Clearance 69 mL/min (70-130); Calcium 8.9 mg/dL (7.8-10.44); Carbon Dioxide 22 mmol/L (23-31); Chloride 103 mmol/L (98-107); Estimated GFR-MDRD 75
[2017-01-31] MEDS: Acetaminophen 325 MG TAB PO PRN (16:32)
--- NOTE | 2017-01-31 18:43 | PRG ---
DATE OF SERVICE: 01/31/2017 SUBJECTIVE: Chest radiographs unchanged. Chest tube was removed intact. Cardiology feels she is stable from their standpoint. I plan to move her out of the ICU to medical bed today. OBJECTIVE: LUNGS: Her lungs are clear. HEART: Regular rhythm. ABDOMEN: Soft. She wants to go home, but her family is concerned about weakness. Physical therapy, I thought, had already seen her, but apparently they have not been consulted, so I placed a consult. Once she is ambulatory, we can send her home but not prior. LUIS
[2017-01-31] MEDS: hydrALAZINE 20 MG/ML VIAL SLOW IVP PRN (22:00)
[2017-01-31] MEDS: diphenhydrAMINE 25 MG CAP PO PRN (22:05)
--- NOTE | 2017-01-31 22:23 | PRG ---
DATE OF SERVICE: 01/31/2017 ELECTROPHYSIOLOGY FOLLOWUP NOTE SUBJECTIVE: Ms. Montez seems to be doing well. She is now transferred to the pulmonary floor. Her chest tubes are removed day before. The valve was also removed. Her only complaint is an episode o f diarrhea after a significant period of constipation. She has no dyspnea, no palpitations, no loss of consciousness, but she mostly was bedbound since then. OBJECTIVE: VITAL SIGNS: Blood pressure is 131/61, heart rate 101, respirations 12, and temperature 97.1 degree s Fahrenheit. GENERAL: Alert and oriented woman in no apparent distress. NECK: Supple. Jugular veins not distended. CHEST: Coarse without crackles. Left precordial pacemaker insertion site is well healed. ABDOMEN: Benign. Bowel sounds positive. EXTREMITIES: Lower extremities without edema, clubbing or cyanosis. A prior chest tube wound with bandages. DATABASE: The chest x-ray from 01/31/2017 reveals stable appearing chest x-ray without pneumothorax . ASSESSMENT AND PLAN: 1. Mrs. Montez is a pleasant 81-year-old woman with history of syncopal spells to second degre e AV block on EP study, prompting dual chamber pacemaker placement which was complicated with pneumo thorax. She received chest tube, pneumothorax resolved, and she is doing well. 2. Sinus tachycardia post-procedure now resolving. She is back on beta ninoska and digoxin. 3. Pacemaker site is healing well. Routine wound check and continue antibiotics, advised. 4. Two weeks follow up for wound check in our office.
[2017-02-01 06:54] LABS: Band 2 % (5-11); Mean Platelet Volume 8.3 fL (7.4-10.4); Neutrophil 83 % (42-75); Red Blood Cell (RBC) Count 4.07 mill/uL (4.20-5.40); White Blood Cell (WBC) Count 22.1 thou/uL (4.8-10.8)
[2017-02-01 08:14] LABS: PTT 30.7 SEC (22.9-36.1); Prothrombin Time 14.6 SEC (12.0-14.7)
[2017-02-01 08:25] LABS: Anion Gap 12 mmol/L (10-20); BUN (Urea Nitrogen) 18 mg/dL (9.8-20.1); Calc. Creatinine Clearance 75 mL/min (70-130); Calcium 8.5 mg/dL (7.8-10.44); Carbon Dioxide 24 mmol/L (23-31); Chloride 104 mmol/L (98-107); Estimated GFR-MDRD 83
[2017-02-01] MEDS: Sodium Chloride 0.9% 1,000 ML IV SCH ×2 (09:19→22:54)
[2017-02-01] MEDS: Lisinopril 20 MG TAB PO SCH (09:26)
[2017-02-01] MEDS: Metoprolol Tartrate 25 MG TAB PO SCH ×2 (09:27→22:01)
[2017-02-01] MEDS: ALPRAZolam 0.25 MG TAB PO SCH ×2 (09:27→22:00)
[2017-02-01] MEDS: Docusate 100 MG CAP PO SCH ×2 (09:29→22:02)
[2017-02-01] MEDS: Venlafaxine HCl XR 75 MG CAP PO SCH (09:31)
--- NOTE | 2017-02-01 10:57 | PRG ---
DATE OF SERVICE: 02/01/2017 SUBJECTIVE: Ms. Montez is upset this morning. Apparently, she had rectal bleeding last night. CBC was ordered. Gastroenterology has not been consulted when I rounded on him this morning. PHYSICAL EXAMINATION: VITAL SIGNS: Blood pressure at 8:00 this morning was 108/55, heart rate 116. She is afebrile, resp iratory rate is 20, oximetry is 97%. LUNGS: Clear. She has equal breath sounds. HEART: Regular rhythm. ABDOMEN: Soft. Chest radiograph shows no pneumothorax on the left. LABORATORY DATA: White count is 22.1, hemoglobin is 12.7, it was 15.6 on the 16th, platelets 245,00 0. Electrolytes were unremarkable. IMPRESSION: Rectal bleeding. It is really not clear to me how much fresh blood she had in her pull up, but the nurse tells me it was a significant amount. She will be transferred to the Intermediate Care Unit for closer observation and monitoring her hemoglobin. I have consulted Dr. Mejia. Amber berman is on-call for Gastroenterology. She has been typed and crossed. A repeat CBC will be drawn at n oon and IV fluids have been started. Coags have been ordered and these were normal.
--- NOTE | 2017-02-01 11:05 | RAD ---
FRONTAL VIEW CHEST: COMPARISON: Previous day. INDICATION: Cough. FINDINGS: There remains soft tissue emphysema of the left neck and chest, where visualized. There are multifo rashid air lucencies overlying the left hemithorax superimposed upon lung parenchyma favoring superimpo sed chest wall soft tissue emphysema. No discrete pneumothorax otherwise depicted on the provided u pper portable view. No additional significant interval change. IMPRESSION: Grossly stable exam as above. POS: [facility]
[2017-02-01 12:03] LABS: Hematocrit 35.4 % (36.0-47.0)
--- NOTE | 2017-02-01 12:13 | PDOC.PN ---
- Subjective Encounter Start Date: 02/01/17 Encounter Start Time: 10:40 -: old records requested/rev pt had rectal bleed last night, no active bleeding no chest pain, no fever - Objective Resuscitation Status: Resuscitation Status DNR:Do Not Resuscitate MAR Reviewed: Yes Vital Signs & Weight: Vital Signs (12 hours) Temp Pulse Resp BP BP Pulse Ox 02/01/17 11:27 100.2 F H 90 20 165/79 H 96 02/01/17 10:21 98.4 F 76 20 96 02/01/17 09:43 98.4 F 76 20 130/85 97 02/01/17 09:00 97.5 F L 116 H 20 97 02/01/17 08:00 97.5 F L 116 H 20 108/55 L 97 02/01/17 03:45 97.8 F 115 H 22 H 97/60 97 Weight Weight 167 lb 1.766 oz Most Recent Monitor Data Heart Rate from ECG 96 NIBP 131/69 NIBP BP-Mean 101 Respiration from ECG 21 SpO2 97 I&O: 01/31/17 02/01/17 02/02/17 06:59 06:59 06:59 Intake Total 1851 620 Output Total 2540 1233 Balance -361 -352 Result Diagrams: 02/01/17 11:51 02/01/17 07:53 Phys Exam - Physical Examination Constitutional: NAD HEENT: PERRLA, moist MMs, sclera anicteric Neck: no JVD, supple Respiratory: no wheezing, no rales, no rhonchi pacemaker site is clean Cardiovascular: RRR, no significant murmur, no rub Gastrointestinal: soft, non-tender, no distention, positive bowel sounds Musculoskeletal: no edema, pulses present Neurological: non-focal, normal sensation, moves all 4 limbs Lymphatic: no nodes Psychiatric: normal affect, A&O x 3 Skin: normal turgor Deviation from normal: bruise noted Dx/Plan (1) Elevated troponin Code(s): R74.8 - ABNORMAL LEVELS OF OTHER SERUM ENZYMES Status: Acute (2) GI bleed Code(s): K92.2 - GASTROINTESTINAL HEMORRHAGE, UNSPECIFIED Status: Acute (3) Pneumothorax, acute Code(s): J93.83 - OTHER PNEUMOTHORAX Status: Acute (4) S/P cardiac pacemaker procedure Status: Acute (5) Syncopal episodes Code(s): R55 - SYNCOPE AND COLLAPSE Status: Acute Comment: ? due to sss (6) Anxiety and depression Code(s): F41.8 - OTHER SPECIFIED ANXIETY DISORDERS Status: Chronic (7) HTN (hypertension) Code(s): I10 - ESSENTIAL (PRIMARY) HYPERTENSION Status: Chronic (8) Hyperlipidemia Code(s): E78.5 - HYPERLIPIDEMIA, UNSPECIFIED Status: Chronic - Plan cont current plan of care, plan discussed w/ family, continue antibiotics, PT/OT , social professionals * dr nichols has transferred her to [facility] * will repeat H & H later today * GI consulted * will need PT in hospital * medication reviewed as below * symptomatic treatment * discussed with family bedside. Review of Systems - Review of Systems Constitutional: negative: Fever, Chills, Sweats, Weakness, Malaise, Other ENT: negative: Ear Pain, Ear Discharge, Nose Pain, Nose Discharge, Nose Congestion, Mouth Pain, Mouth Swelling, Throat Pain, Throat Swelling, Other Respiratory: negative: Cough, Dry, Shortness of Breath, Hemoptysis, SOB with Excertion, Pleuritic Pain, Sputum, Wheezing Cardiovascular: negative: Chest Pain, Palpitations, Orthopnea, Paroxysmal Noc. Dyspnea, Edema, Light Headedness, Other Gastrointestinal: Hematochezia. negative: Nausea, Vomiting, Abdominal Pain, Diarrhea, Constipation, Melena, Other Genitourinary: negative: Dysuria, Frequency, Incontinence, Hematuria, Retention , Other Musculoskeletal: negative: Neck Pain, Shoulder Pain, Arm Pain, Back Pain, Hand Pain, Leg Pain, Foot Pain, Other - Medications/Allergies Allergies/Adverse Reactions: Allergies Allergy/AdvReac Type Severity Reaction Status Date / Time MORPHINE Allergy Uncoded 01/26/17 22:02 Medications: Current Medications Acetaminophen (Tylenol) 650 mg PO Q4H PRN PRN Reason: Headache/Fever or Pain Last Admin: 01/31/17 16:32 Dose: 650 mg Hydrocodone Bitart/Acetaminophen ([place] 5/325) 1 tab PO Q4H PRN PRN Reason: Mild Pain Last Admin: 01/30/17 06:21 Dose: 1 tab Hydrocodone Bitart/Acetaminophen ([place] 5/325) 2 tab PO Q4H PRN PRN Reason: For Moderate Pain Last Admin: 01/29/17 16:30 Dose: 2 tab Hydrocodone Bitart/Acetaminophen ([place] 10/325) 1 tab PO Q4H PRN PRN Reason: Severe Pain (7-10) Last Admin: 01/30/17 13:19 Dose: 1 tab Al Hydroxide/Mg Hydroxide (Maalox) 15 ml PO Q4H PRN PRN Reason: Heartburn or Indigestion Albuterol/Ipratropium (Duoneb) 3 ml NEB [id number] PRN PRN Reason: SOB &/or Wheezing Alprazolam (Xanax) 0.25 mg PO BID [facility] Last Admin: 02/01/17 09:27 Dose: 0.25 mg Bisacodyl (Dulcolax) 10 mg [place] DAILYPRN PRN PRN Reason: Constipation Bisacodyl (Dulcolax) 10 mg PO DAILYPRN PRN PRN Reason: Constipation Calcium Carbonate (Tums) 1,000 mg PO Q4H PRN PRN Reason: Heartburn or Indigestion Cephalexin (Keflex) 500 mg PO QID [facility] Stop: 02/04/17 17:01 Last Admin: 01/31/17 20:10 Dose: 500 mg Diphenhydramine HCl (Benadryl) 25 mg PO Q6H PRN PRN Reason: Itching Last Admin: 01/31/17 22:05 Dose: 25 mg Docusate Sodium (Colace) 100 mg PO BID [facility] Last Admin: 02/01/17 09:29 Dose: Not Given Hydralazine HCl (Apresoline) 10 mg SLOW IVP Q4H PRN PRN Reason: SBP Greater Than 180 Last Admin: 01/31/17 22:00 Dose: 10 mg Sodium Chloride (Normal Saline 0.9%) 1,000 mls @ 75 mls/hr IV .[id number] [facility] Last Admin: 02/01/17 09:19 Dose: 1,000 mls Lisinopril (Zestril) 40 mg PO DAILY [facility] Last Admin: 02/01/17 09:26 Dose: 40 mg Metoprolol Tartrate (Lopressor) 25 mg PO BID [facility] Last Admin: 02/01/17 09:27 Dose: 25 mg Nitroglycerin (Nitrostat) 0.4 mg SL Q5MIN PRN PRN Reason: Chest Pain Ondansetron HCl (Zofran) 4 mg IVP Q6H PRN PRN Reason: Nausea/Vomiting Last Admin: 01/31/17 14:19 Dose: 4 mg Pantoprazole Sodium (Protonix) 40 mg PO 2100 RIANNA Last Admin: 01/31/17 20:11 Dose: 40 mg Silver Sulfadiazine (Silvadene) 0 gm TOP Q12H PRN PRN Reason: Rash/Topical Irritation Temazepam (Restoril) 15 mg PO HSPRN PRN PRN Reason: Insomnia Last Admin: 01/30/17 19:43 Dose: 15 mg Tramadol HCl (Ultram) 50 mg PO Q4H PRN PRN Reason: FOR MODERATE PAIN 4-6 Last Admin: 01/29/17 00:29 Dose: 50 mg Venlafaxine HCl (Effexor Xr) 75 mg PO DAILY [facility] Last Admin: 02/01/17 09:31 Dose: 75 mg
[2017-02-01] MEDS: Cephalexin 250 MG CAP PO SCH ×4 (12:16→22:00)
--- NOTE | 2017-02-01 13:11 | PRG ---
DATE OF SERVICE: 02/01/2017 HISTORY: Ms. Montez today had an episode of rectal bleeding. The amount is unknown. She has no pre vious history of rectal bleeding. Her shortness of breath is improved. The chest tube has been dis continued. PHYSICAL EXAMINATION: VITAL SIGNS: Blood pressure 165/79, pulse 90, temperature 100.2. LUNGS: Clear to auscultation. HEART: Regular rate and rhythm. ABDOMEN: Soft, nontender, nondistended. EXTREMITIES: No edema. LABORATORY: Hemoglobin stable at 12.7, decreased slightly to 12.0 today. IMPRESSION: 1. Rectal bleeding. 2. Syncope. 3. Status post pacemaker placement. 4. Pneumothorax. RECOMMENDATIONS: 1. The patient has been transferred to [facility] for close observation. 2. She has been consulted. 3. From a pacer and a pneumothorax standpoint she is stable.
[2017-02-01] MEDS: Acetaminophen 325 MG TAB PO PRN (22:02)
[2017-02-01] MEDS: diphenhydrAMINE 25 MG CAP PO PRN (22:04)
--- NOTE | 2017-02-01 23:35 | CON ---
DATE OF CONSULTATION: 02/01/2017 REFERRING PHYSICIANS: Dr. Vinicius Lopez, Dr. Paddy Rojas. REASON FOR CONSULTATION: Hematochezia. HISTORY OF PRESENT ILLNESS: Betty Montez is a very pleasant 81-year-old hospitalized fo r an episode of syncope. She apparently has had some bruising over the left side of the face and or bit area. The patient was seen by Cardiology and subsequently underwent pacemaker implant. The pat nargis developeda pneumothorax post pacemaker implant. She was seen by Dr. Vinicius Lopez and had a willa st tube in the chest. This was removed. She was in ICU before, and she was transferred out of the ICU yesterday. The patient apparently has been constipated since admission. She was trying to have stool yesterday and she was trying to push and passed out. The stool was very bulky and hard in co nsistency. She was able to pass the stool yesterday. This morning, she suddenly started having alfreda e hematochezia. The bleeding was bright red. She had no perianal discomfort or pain. There was no tenderness. She does complain of mild left lower quadrant abdominal pain. The patient has no faiza lar episodes in the past. The patient had a colonoscopy about 6 years ago and was told to be negati ve. There is no mention of any diverticulosis at that time. The patient's bowel movements are fair ly regular. She has no other relevant history. ALLERGIES: MORPHINE. SOCIAL HISTORY: The patient does not smoke but has an occasional glass of wine. MEDICAL ILLNESSES: 1. Hypertension. 2. Breast cancer, status post left mastectomy. 3. History of melanoma removed over the right arm more than 20 years ago. 4. Right rotator cuff repair. 5. Hysterectomy. 6. Bladder lift. 7. Colonoscopy in the past. FAMILY HISTORY: There is a family history of heart disease, CVA or any major medical problems. MEDICATIONS: List reviewed. REVIEW OF SYSTEMS: CLIENT APPLICATION SUPPORT SPECIALIST: History of syncope with recent fall. No history of chronic headache, no seizure disorder, no TIA. Respiratory: No history of chronic cough, hemoptysis, dyspnea. Cardiovascular: No chest milton n, no palpitations, no exertional dyspnea, orthopnea or PND. Gastrointestinal: No abdominal pain. No nausea or vomiting. History of hematochezia early this morning. Genitourinary: No dysuria, he maturia, or urinary incontinence. Musculoskeletal: Arthralgias and some back pain. Neuro, endocri ne and psychiatric: Unremarkable. PHYSICAL EXAMINATION: GENERAL: This is very pleasant, elderly female, who appears very comfortable. She is jose l ke, alert, oriented to time, place and person. She is hard of hearing. She does have some bruising over the left side of face from previous fall. VITAL SIGNS: Stable. She is afebrile this morning at 98.4 degrees Fahrenheit, pulse is 76, blood p ressure 130/85. HEENT: Conjunctivae clear. NECK: Supple. No adenitis or thyromegaly noted. CARDIOVASCULAR: First and second heart sounds normal. LUNGS: Clear to auscultation. ABDOMEN: Soft to palpate. Abdomen is nondistended. Abdomen is mildly tender over the left lower q uadrant. There is no rebound or guarding. RECTAL: A rectal exam done showed no blood on the exam finger. There are no masses. The rectum is actually empty. EXTREMITIES: Revealed no edema. CLINICAL IMPRESSION: An 81-year-old female with a syncopal episode, following that she segovia d a pacemaker placement. She had developed a pneumothorax and has had a chest tube placement. The patient had an episode of hematochezia this morning. She passed stool bright red blood in the stool . Her blood count is actually stable at present time. The admission hemoglobin showed 14.2 hematoc rit 41. Today, it has dropped slightly to 12.7 and hematocrit 39. Platelet count is 245,000. Chem -7 shows today sodium 137, potassium 3.4, chloride 104, bicarb 24, BUN is 18, creatinine 0.68, gluco se 140, calcium 8.5. Total protein 5.8, albumin 3.5. CLINICAL IMPRESSION: An 81-year-old female with hematochezia. The history and physical findings suggestive most likely had bleeding from anal outlet. A rectal ex am done showed no masses and also the rectum is empty. There is no blood on examination finger. I did see some blood staining on the diaper. Her blood count dropped significantly. The admitting he moglobin and hematocrit are 14.1 and 40 respectively. Today, it has dropped down to 12.7 and hemato crit 39. RECOMMENDATIONS: 1. Follow up H\T\H. 2. If her bleeding recurs and blood count drop down significantly, I will plan for colonoscopy. At the present time, we will watch for the next 24 hours and decide further plan of treatment.
[2017-02-02 05:19] LABS: Hematocrit 34.5 % (36.0-47.0)
[2017-02-02] MEDS: hydrALAZINE 20 MG/ML VIAL SLOW IVP PRN (06:21)
[2017-02-02] MEDS ORDERED: Potassium Chloride 20 MEQ TAB PO SCH (08:00)
[2017-02-02] MEDS: Docusate 100 MG CAP PO SCH ×2 (08:43→20:15)
[2017-02-02] MEDS: ALPRAZolam 0.25 MG TAB PO SCH ×2 (08:44→20:15)
[2017-02-02] MEDS: Cephalexin 250 MG CAP PO SCH ×4 (08:44→20:14)
--- NOTE | 2017-02-02 10:42 | PDOC.PN ---
- Subjective Encounter Start Date: 02/02/17 Encounter Start Time: 07:30 pt does not have any further lower GI bleed, no chest pain, has not done any PT yet - Objective Resuscitation Status: Resuscitation Status DNR:Do Not Resuscitate MAR Reviewed: Yes Vital Signs & Weight: Vital Signs (12 hours) Temp Pulse Resp BP BP BP Pulse Ox 02/02/17 07:49 98.3 F 96 18 136/55 L 97 02/02/17 06:21 89 197/86 H 02/02/17 04:27 98.3 F 89 20 139/61 98 02/01/17 23:32 89 19 162/69 H 97 Weight Weight 167 lb 1.766 oz Most Recent Monitor Data Heart Rate from ECG 96 NIBP 131/69 NIBP BP-Mean 101 Respiration from ECG 21 SpO2 97 I&O: 02/01/17 02/02/17 02/03/17 06:59 06:59 06:59 Intake Total 620 1100 Output Total 1233 675 Balance -613 425 Result Diagrams: 02/02/17 04:40 02/01/17 07:53 EKG Reviewed by me: Yes Phys Exam - Physical Examination Constitutional: NAD HEENT: PERRLA, moist MMs, sclera anicteric Neck: no JVD, supple Respiratory: no wheezing, no rales, no rhonchi Cardiovascular: RRR, no significant murmur, no rub pacemaker site clean Gastrointestinal: soft, non-tender, no distention, positive bowel sounds Musculoskeletal: no edema, pulses present Neurological: non-focal, normal sensation, moves all 4 limbs Psychiatric: normal affect, A&O x 3 Skin: no rash, normal turgor Dx/Plan (1) Elevated troponin Code(s): R74.8 - ABNORMAL LEVELS OF OTHER SERUM ENZYMES Status: Acute Comment: demand ischemia (2) GI bleed Code(s): K92.2 - GASTROINTESTINAL HEMORRHAGE, UNSPECIFIED Status: Resolved (3) Hypokalemia Code(s): E87.6 - HYPOKALEMIA Status: Acute (4) Pneumothorax, acute Code(s): J93.83 - OTHER PNEUMOTHORAX Status: Resolved (5) S/P cardiac pacemaker procedure Status: Acute (6) Syncopal episodes Code(s): R55 - SYNCOPE AND COLLAPSE Status: Acute Comment: due to AVB, required PM (7) Anxiety and depression Code(s): F41.8 - OTHER SPECIFIED ANXIETY DISORDERS Status: Chronic (8) HTN (hypertension) Code(s): I10 - ESSENTIAL (PRIMARY) HYPERTENSION Status: Chronic (9) Hyperlipidemia Code(s): E78.5 - HYPERLIPIDEMIA, UNSPECIFIED Status: Chronic (10) Anemia due to acute blood loss Code(s): D62 - ACUTE POSTHEMORRHAGIC ANEMIA Status: Acute - Plan cont current plan of care, plan discussed w/ family, PT/OT * pt does not have any further bleed and does not require any transfusion * now needs more PT/OT * pt wants to go home eventually when more stable * medication reviewed as below * symptomatic treatment * replace potassium. Review of Systems - Review of Systems Constitutional: Weakness. negative: Fever, Chills, Sweats, Malaise, Other ENT: negative: Ear Pain, Ear Discharge, Nose Pain, Nose Discharge, Nose Congestion, Mouth Pain, Mouth Swelling, Throat Pain, Throat Swelling, Other Respiratory: negative: Cough, Dry, Shortness of Breath, Hemoptysis, SOB with Excertion, Pleuritic Pain, Sputum, Wheezing Cardiovascular: negative: Chest Pain, Palpitations, Orthopnea, Paroxysmal Noc. Dyspnea, Edema, Light Headedness, Other Gastrointestinal: negative: Nausea, Vomiting, Abdominal Pain, Diarrhea, Constipation, Melena, Hematochezia, Other Genitourinary: negative: Dysuria, Frequency, Incontinence, Hematuria, Retention , Other Musculoskeletal: negative: Neck Pain, Shoulder Pain, Arm Pain, Back Pain, Hand Pain, Leg Pain, Foot Pain, Other Skin: negative: Rash, Lesions, Madan, Bruising, Other - Medications/Allergies Allergies/Adverse Reactions: Allergies Allergy/AdvReac Type Severity Reaction Status Date / Time MORPHINE Allergy Uncoded 01/26/17 22:02 Medications: Current Medications Acetaminophen (Tylenol) 650 mg PO Q4H PRN PRN Reason: Headache/Fever or Pain Last Admin: 02/01/17 22:02 Dose: 650 mg Hydrocodone Bitart/Acetaminophen ([place] 5/325) 1 tab PO Q4H PRN PRN Reason: Mild Pain Last Admin: 01/30/17 06:21 Dose: 1 tab Hydrocodone Bitart/Acetaminophen ([place] 5/325) 2 tab PO Q4H PRN PRN Reason: For Moderate Pain Last Admin: 01/29/17 16:30 Dose: 2 tab Hydrocodone Bitart/Acetaminophen ([place] 10/325) 1 tab PO Q4H PRN PRN Reason: Severe Pain (7-10) Last Admin: 01/30/17 13:19 Dose: 1 tab Al Hydroxide/Mg Hydroxide (Maalox) 15 ml PO Q4H PRN PRN Reason: Heartburn or Indigestion Albuterol/Ipratropium (Duoneb) 3 ml NEB [id number] PRN PRN Reason: SOB &/or Wheezing Alprazolam (Xanax) 0.25 mg PO BID [facility] Last Admin: 02/02/17 08:44 Dose: 0.25 mg Bisacodyl (Dulcolax) 10 mg [place] DAILYPRN PRN PRN Reason: Constipation Bisacodyl (Dulcolax) 10 mg PO DAILYPRN PRN PRN Reason: Constipation Calcium Carbonate (Tums) 1,000 mg PO Q4H PRN PRN Reason: Heartburn or Indigestion Cephalexin (Keflex) 500 mg PO QID [facility] Stop: 02/04/17 17:01 Last Admin: 02/02/17 08:44 Dose: 500 mg Diphenhydramine HCl (Benadryl) 25 mg PO Q6H PRN PRN Reason: Itching Last Admin: 02/01/17 22:04 Dose: 25 mg Docusate Sodium (Colace) 100 mg PO BID [facility] Last Admin: 02/02/17 08:43 Dose: 100 mg Hydralazine HCl (Apresoline) 10 mg SLOW IVP Q4H PRN PRN Reason: SBP Greater Than 180 Last Admin: 02/02/17 06:21 Dose: 10 mg Lisinopril (Zestril) 40 mg PO DAILY [facility] Last Admin: 02/01/17 09:26 Dose: 40 mg Metoprolol Tartrate (Lopressor) 25 mg PO BID [facility] Last Admin: 02/01/17 22:01 Dose: 25 mg Nitroglycerin (Nitrostat) 0.4 mg SL Q5MIN PRN PRN Reason: Chest Pain Ondansetron HCl (Zofran) 4 mg IVP Q6H PRN PRN Reason: Nausea/Vomiting Last Admin: 01/31/17 14:19 Dose: 4 mg Pantoprazole Sodium (Protonix) 40 mg PO 2100 RIANNA Last Admin: 02/01/17 22:01 Dose: 40 mg Silver Sulfadiazine (Silvadene) 0 gm TOP Q12H PRN PRN Reason: Rash/Topical Irritation Temazepam (Restoril) 15 mg PO HSPRN PRN PRN Reason: Insomnia Last Admin: 01/30/17 19:43 Dose: 15 mg Tramadol HCl (Ultram) 50 mg PO Q4H PRN PRN Reason: FOR MODERATE PAIN 4-6 Last Admin: 01/29/17 00:29 Dose: 50 mg Venlafaxine HCl (Effexor Xr) 75 mg PO DAILY [facility] Last Admin: 02/01/17 09:31 Dose: 75 mg
[2017-02-02] MEDS: Venlafaxine HCl XR 75 MG CAP PO SCH (11:23)
--- NOTE | 2017-02-02 12:05 | PDOC.CTH ---
Cardiology Progress Note - Subjective No new issues. - Objective Vital Signs Temp Pulse Pulse Pulse Resp BP BP 02/02/17 11:47 98.0 F 108 H 18 02/02/17 11:09 109 H 117 H 123/54 L 02/02/17 08:00 98.3 F 96 18 02/02/17 07:49 98.3 F 96 18 02/02/17 06:21 89 197/86 H 02/02/17 04:27 98.3 F 89 20 BP BP Pulse Ox 02/02/17 11:47 116/59 L 94 L 02/02/17 11:09 98/53 L 02/02/17 08:00 97 02/02/17 07:49 136/55 L 97 02/02/17 06:21 02/02/17 04:27 139/61 98 Weight 167 lb 1.766 oz 02/01/17 02/02/17 02/03/17 06:59 06:59 06:59 Intake Total 620 1100 Output Total 1233 675 Balance -613 425 - Physical Examination General/Neuro: NAD Neck: no JVD present Lungs: unlabored respirations Heart: RRR Abdomen: NT/ND Extremities: + edema B (Trace) - Telemetry Telemetry Rhythm: NSR - Labs Result Diagrams: 02/02/17 04:40 02/01/17 07:53 Troponin/CKMB CK-MB (CK-2) 2.7 ng/mL (0-6.6) 01/26/17 17:01 Troponin I 0.053 ng/mL (< 0.028) H 01/27/17 02:17 - Assessment/Plan 1. Rectal bleeding 2. Syncope 3. s/p PPM placement 4. Pneumothorax after PPM resolved now. PLAN: - Stable from CV perspective. - Replace Daniela
[2017-02-02] MEDS: diphenhydrAMINE 25 MG CAP PO PRN ×2 (12:30→22:37)
[2017-02-02] MEDS: Acetaminophen 325 MG TAB PO PRN (12:30)
--- NOTE | 2017-02-02 13:24 | PRG ---
DATE OF SERVICE: 02/02/2017 SUBJECTIVE: This morning, she is awake, alert, responsive. H\T\H is stable at 11 and 24. No furth er GI bleed. She is weak. Appetite is poor. OBJECTIVE: VITAL SIGNS: Blood pressure 136/55, sats are 98% on 2 liters, respirations 18, temperature 98. CHEST: Decreased breath sounds without any wheezing. CARDIAC: Normal S1 and S2. No gallops. ABDOMEN: Soft, no masses. IMPRESSION: 1. Gastroenterology apparently saw, no further workup is contemplated. 2. Status post pacemaker pneumothorax, pretty much resolved. 3. From the pulmonary standpoint of view, no further GI workup is planned. She can be transferred out of the ICU. We will follow, supportive care.
[2017-02-02] MEDS: Metoprolol Tartrate 25 MG TAB PO SCH ×2 (14:26→20:18)
[2017-02-02] MEDS: Lisinopril 20 MG TAB PO SCH (14:26)
--- NOTE | 2017-02-02 21:40 | PRG ---
HOSPITAL VISIT NOTE DATE OF SERVICE: 02/02/2017 SUBJECTIVE: This is an 81-year-old female seen by me yesterday, because of hematochezia. The symptoms are suggestive of bleeding from anal outlet. The patient's blood count did drop down slowly, but holding around 11.5. The patient had no more bleeding yesterday and today. She has no abdominal pain. A rectal exam done yesterday morning did not show any blood in the exam on the fing er and it was felt the bleeding most likely from the anal outlet. The patient complains of severe h eartburn this morning. She is already on pantoprazole 40 twice a day. However, she insists that on ly Prilosec helps her to control the acid reflux. She has no abdominal pain, no nausea or vomiting. OBJECTIVE: GENERAL: Appears comfortable, in no distress. VITAL SIGNS: Stable. Temperature 98.3 and blood pressure is 160/59. CARDIOVASCULAR SYSTEM/LUNGS: Within normal limits. ABDOMEN: Soft to palpate. No organomegaly. No tenderness. No masses. LABORATORY DATA: From today, hemoglobin 11.5 and hematocrit 44.5. RECOMMENDATIONS: 1. May transfer to medical floor. 2. Follow up hemoglobin and hematocrit. 3. No EGD planned at the present time.
[2017-02-02] MEDS: Temazepam 15 MG CAP PO PRN (22:40)
[2017-02-03] MEDS: Venlafaxine HCl XR 75 MG CAP PO SCH (08:04)
[2017-02-03] MEDS: ALPRAZolam 0.25 MG TAB PO SCH ×2 (08:04→21:07)
[2017-02-03] MEDS: Cephalexin 250 MG CAP PO SCH (08:04)
[2017-02-03] MEDS: Metoprolol Tartrate 25 MG TAB PO SCH ×2 (08:04→20:59)
[2017-02-03] MEDS: Docusate 100 MG CAP PO SCH ×2 (08:05→20:59)
[2017-02-03] MEDS: Lisinopril 20 MG TAB PO SCH (08:07)
[2017-02-03 08:10] LABS: #Eosinphils 0.5 thou/uL (0.0-0.7); #Lymphocytes 2.1 thou/uL (1.20-3.40); #Monocytes 1.8 thou/uL (0.11-0.59); #Neutrophils 17.4 thou/uL (1.40-6.50); %Basophils 0.2 % (0.0-1.0); %Eosinophils 2.3 % (0.0-10.0); %Lymphocytes 9.5 % (21.0-51.0); %Monocytes 8.1 % (0.0-10.0); Hematocrit 33.6 % (36.0-47.0); Mean Platelet Volume 8.2 fL (7.4-10.4); Red Blood Cell (RBC) Count 3.48 mill/uL (4.20-5.40); White Blood Cell (WBC) Count 21.8 thou/uL (4.8-10.8)
[2017-02-03 08:27] LABS: Anion Gap 12 mmol/L (10-20); BUN (Urea Nitrogen) 10 mg/dL (9.8-20.1); Calc. Creatinine Clearance 80 mL/min (70-130); Calcium 8.2 mg/dL (7.8-10.44); Carbon Dioxide 24 mmol/L (23-31); Chloride 102 mmol/L (98-107); Estimated GFR-MDRD 89
[2017-02-03] MEDS: guaiFENesin ER 600 MG TAB PO SCH ×2 (09:34→20:59)
[2017-02-03] MEDS: Saccharomyces boulardii 250 MG CAP PO SCH (09:34)
--- NOTE | 2017-02-03 09:56 | RAD ---
CHEST 1 VIEW: HISTORY: Wheezing and cough. COMPARISON: Chest 1 view 02/01/17. FINDINGS: No large hemithorax. Cardiac silhouette and mediastinal contours are similar. IMPRESSION: Improving subcutaneous emphysema. POS: [facility]
[2017-02-03] MEDS ORDERED: Cefepime 2 GM, Admixture Fee 1 EACH in Sodium Chloride 0.9% 100 ML IVPB SCH (10:00)
--- NOTE | 2017-02-03 12:10 | PDOC.PN ---
- Subjective Encounter Start Date: 02/03/17 Encounter Start Time: 09:00 this morning pt had BM without any blood, she is couging and has wheezing, not feeling overall well - Objective Resuscitation Status: Resuscitation Status DNR:Do Not Resuscitate MAR Reviewed: Yes Vital Signs & Weight: Vital Signs (12 hours) Temp Pulse Resp BP BP BP Pulse Ox 02/03/17 11:29 97.8 F 56 L 16 129/77 02/03/17 11:27 98.5 F 95 22 H 113/72 100 02/03/17 11:11 94 18 99 02/03/17 08:00 98.1 F 112 H 16 02/03/17 07:24 98.1 F 112 H 16 148/70 H 97 Weight Weight 167 lb 1.766 oz Most Recent Monitor Data Heart Rate from ECG 96 NIBP 131/69 NIBP BP-Mean 101 Respiration from ECG 21 SpO2 97 I&O: 02/02/17 02/03/17 02/04/17 06:59 06:59 06:59 Intake Total 1100 Output Total 675 600 Balance 425 -600 Result Diagrams: 02/03/17 07:41 02/03/17 07:41 Radiology Reviewed by me: Yes (chest xray) Phys Exam - Physical Examination Constitutional: NAD HEENT: PERRLA, moist MMs, sclera anicteric Neck: no JVD, supple Respiratory: no rales, wheezing present pacemaker site OK Cardiovascular: RRR, no significant murmur, no rub Gastrointestinal: soft, non-tender, no distention, positive bowel sounds Musculoskeletal: no edema, pulses present Neurological: non-focal, normal sensation, moves all 4 limbs Psychiatric: normal affect, A&O x 3 Skin: no rash, normal turgor Dx/Plan (1) Elevated troponin Code(s): R74.8 - ABNORMAL LEVELS OF OTHER SERUM ENZYMES Status: Acute Comment: demand ischemia (2) GI bleed Code(s): K92.2 - GASTROINTESTINAL HEMORRHAGE, UNSPECIFIED Status: Resolved (3) Hypokalemia Code(s): E87.6 - HYPOKALEMIA Status: Acute (4) Pneumothorax, acute Code(s): J93.83 - OTHER PNEUMOTHORAX Status: Resolved (5) S/P cardiac pacemaker procedure Status: Acute (6) Syncopal episodes Code(s): R55 - SYNCOPE AND COLLAPSE Status: Acute Comment: due to AVB, required PM (7) Anxiety and depression Code(s): F41.8 - OTHER SPECIFIED ANXIETY DISORDERS Status: Chronic (8) HTN (hypertension) Code(s): I10 - ESSENTIAL (PRIMARY) HYPERTENSION Status: Chronic (9) Hyperlipidemia Code(s): E78.5 - HYPERLIPIDEMIA, UNSPECIFIED Status: Chronic (10) Anemia due to acute blood loss Code(s): D62 - ACUTE POSTHEMORRHAGIC ANEMIA Status: Acute (11) Acute bronchitis Code(s): J20.9 - ACUTE BRONCHITIS, UNSPECIFIED Status: Acute - Plan cont current plan of care, plan discussed w/ family, continue antibiotics, respiratory therapy * chest xray done and reviewed * will schedule duoneb therapy * add dulera * antibiotics doxycycline as per pulmonary. * repeat labs tomorrow * medication reviewed as below * symptomatic treatment * plan to discharge to home when stable and cleared by consultants Review of Systems - Review of Systems Constitutional: negative: Fever, Chills, Sweats, Weakness, Malaise, Other Eyes: negative: Pain, Vision Change, Conjunctivae Inflammation, Eyelid Inflammation, Redness, Other ENT: negative: Ear Pain, Ear Discharge, Nose Pain, Nose Discharge, Nose Congestion, Mouth Pain, Mouth Swelling, Throat Pain, Throat Swelling, Other Respiratory: Cough, Shortness of Breath, Sputum, Wheezing. negative: Dry, Hemoptysis, SOB with Excertion, Pleuritic Pain Cardiovascular: negative: Chest Pain, Palpitations, Orthopnea, Paroxysmal Noc. Dyspnea, Edema, Light Headedness, Other Gastrointestinal: negative: Nausea, Vomiting, Abdominal Pain, Diarrhea, Constipation, Melena, Hematochezia, Other Genitourinary: negative: Dysuria, Frequency, Incontinence, Hematuria, Retention , Other Musculoskeletal: negative: Neck Pain, Shoulder Pain, Arm Pain, Back Pain, Hand Pain, Leg Pain, Foot Pain, Other Skin: negative: Rash, Lesions, Madan, Bruising, Other - Medications/Allergies Allergies/Adverse Reactions: Allergies Allergy/AdvReac Type Severity Reaction Status Date / Time MORPHINE Allergy Uncoded 01/26/17 22:02 Medications: Current Medications Acetaminophen (Tylenol) 650 mg PO Q4H PRN PRN Reason: Headache/Fever or Pain Last Admin: 02/02/17 12:30 Dose: 650 mg Hydrocodone Bitart/Acetaminophen ([place] 5/325) 1 tab PO Q4H PRN PRN Reason: Mild Pain Last Admin: 01/30/17 06:21 Dose: 1 tab Hydrocodone Bitart/Acetaminophen ([place] 5/325) 2 tab PO Q4H PRN PRN Reason: For Moderate Pain Last Admin: 01/29/17 16:30 Dose: 2 tab Hydrocodone Bitart/Acetaminophen ([place] 10/325) 1 tab PO Q4H PRN PRN Reason: Severe Pain (7-10) Last Admin: 01/30/17 13:19 Dose: 1 tab Al Hydroxide/Mg Hydroxide (Maalox) 15 ml PO Q4H PRN PRN Reason: Heartburn or Indigestion Albuterol/Ipratropium (Duoneb) 3 ml NEB [id number] PRN PRN Reason: SOB &/or Wheezing Albuterol/Ipratropium (Duoneb) 3 ml NEB [id number] [facility] Last Admin: 02/03/17 11:11 Dose: 3 ml Alprazolam (Xanax) 0.25 mg PO BID [facility] Last Admin: 02/03/17 08:04 Dose: 0.25 mg Bisacodyl (Dulcolax) 10 mg MS DAILYPRN PRN PRN Reason: Constipation Bisacodyl (Dulcolax) 10 mg PO DAILYPRN PRN PRN Reason: Constipation Calcium Carbonate (Tums) 1,000 mg PO Q4H PRN PRN Reason: Heartburn or Indigestion Diphenhydramine HCl (Benadryl) 25 mg PO Q6H PRN PRN Reason: Itching Last Admin: 02/02/17 12:30 Dose: 25 mg Docusate Sodium (Colace) 100 mg PO BID [facility] Last Admin: 02/03/17 08:05 Dose: Not Given Doxycycline Hyclate (Vibramycin) 100 mg PO BID [facility] Guaifenesin (Mucinex) 600 mg PO Q12HR [facility] Last Admin: 02/03/17 09:34 Dose: 600 mg Hydralazine HCl (Apresoline) 10 mg SLOW IVP Q4H PRN PRN Reason: SBP Greater Than 180 Last Admin: 02/02/17 06:21 Dose: 10 mg Lisinopril (Zestril) 40 mg PO DAILY [facility] Last Admin: 02/03/17 08:07 Dose: 40 mg Methylprednisolone Sodium Succinate (Solu-Medrol) 40 mg IVP Q6HR [facility] Last Admin: 02/03/17 11:27 Dose: 40 mg Metoprolol Tartrate (Lopressor) 25 mg PO BID [facility] Last Admin: 02/03/17 08:04 Dose: 25 mg Mometasone Furoate/Formoterol Fumar (Dulera 200 Mcg/5 Mcg Inhaler) 2 puff INH BID-RT [facility] Nitroglycerin (Nitrostat) 0.4 mg SL Q5MIN PRN PRN Reason: Chest Pain Ondansetron HCl (Zofran) 4 mg IVP Q6H PRN PRN Reason: Nausea/Vomiting Last Admin: 01/31/17 14:19 Dose: 4 mg Pantoprazole Sodium (Protonix) 40 mg PO 2100 [facility] Last Admin: 02/02/17 20:14 Dose: 40 mg Saccharomyces Boulardii (Florastor) 250 mg PO DAILY [facility] Last Admin: 02/03/17 09:34 Dose: 250 mg Silver Sulfadiazine (Silvadene) 0 gm TOP Q12H PRN PRN Reason: Rash/Topical Irritation Temazepam (Restoril) 15 mg PO HSPRN PRN PRN Reason: Insomnia Last Admin: 02/02/17 22:40 Dose: 15 mg Tramadol HCl (Ultram) 50 mg PO Q4H PRN PRN Reason: FOR MODERATE PAIN 4-6 Last Admin: 01/29/17 00:29 Dose: 50 mg Venlafaxine HCl (Effexor Xr) 75 mg PO DAILY [facility] Last Admin: 02/03/17 08:04 Dose: 75 mg
[2017-02-03] MEDS: Diabetic Tussin 200 MG/10 ML UDCUP PO PRN ×2 (12:56→17:24)
--- NOTE | 2017-02-03 14:22 | PRG ---
DATE OF SERVICE: 02/03/2017 SUBJECTIVE: There is concern about her cough, persistent. She is wheezing. PHYSICAL EXAMINATION: VITAL SIGNS: Sats are 97% on 2 liters, respirations 16, pulse 112, temperature 98, blood pressure 1 40/70. CHEST: Revealed rhonchi, wheezing, and crackles. CARDIAC: Sinus tachycardia. ABDOMEN: Soft. LABORATORY DATA: White count 21,000, H\T\H 11 and 33, platelet count is normal. Sodium 134. X-ray taken shows cardiomegaly, but no pneumothorax. IMPRESSION: 1. Gastrointestinal bleed, stable. 2. Status post pacemaker. 3. Pneumothorax. 4. Cough. PLAN: Minimize all the antibiotics she is on. Relief for her cough. We will follow.
--- NOTE | 2017-02-03 17:09 | PDOC.CTH ---
Cardiology Progress Note - Subjective She is doing well. No new issues. - Objective Vital Signs Temp Pulse Resp BP BP Pulse Ox 02/03/17 11:27 98.5 F 95 22 H 113/72 100 02/03/17 11:11 94 18 99 02/03/17 08:00 98.1 F 112 H 16 02/03/17 07:24 98.1 F 112 H 16 148/70 H 97 Weight 167 lb 1.766 oz 02/02/17 02/03/17 02/04/17 06:59 06:59 06:59 Intake Total 1100 Output Total 675 600 Balance 425 -600 - Physical Examination General/Neuro: alert & oriented x3, NAD Neck: no JVD present Lungs: CTA, unlabored respirations Heart: other: (irreg) Abdomen: NT/ND Extremities: + edema B (none) - Labs Result Diagrams: 02/03/17 07:41 02/03/17 07:41 Troponin/CKMB CK-MB (CK-2) 2.7 ng/mL (0-6.6) 01/26/17 17:01 Troponin I 0.053 ng/mL (< 0.028) H 01/27/17 02:17 - Assessment/Plan 1. Rectal bleeding 2. Syncope 3. s/p PPM placement 4. Pneumothorax after PPM resolved now. PLAN: - Stable from CV perspective. - No new recs.
--- NOTE | 2017-02-03 18:15 | PRG ---
DATE OF SERVICE: 02/03/2017 HOSPITALIST NOTE SUBJECTIVE: Ms. Betty Montez is an 81-year-old female hospitalized because of syncope a nd subsequently underwent a pacemaker placement. She developed pneumothorax after pacemaker placeme nt and has had a chest tube placed. I saw her 2 days ago because of hematochezia. A rectal exam do ne and did not show any blood in rectal vault and felt the blood most likely came from the anal outl et. The patient has done well over the last 48 hours. She has no recurrence of bleeding. No abdom inal pain, nausea, or vomiting. She has severe heartburn yesterday and today she complains of cough and congestion. Apparently, Dr. Salas has seen her early and has prescribed some Levaquin and also she is on neb treatment. PHYSICAL EXAMINATION: GENERAL: Comfortable, afebrile. VITAL SIGNS: Pulse is 56, blood pressure 129/77. CARDIOVASCULAR: First and second heart sounds normal. LUNGS: Minimal rhonchi. ABDOMEN: Soft to palpate. No organomegaly. No tenderness. No masses. CLINICAL IMPRESSION: Rectal bleeding, resolved. The patient has no GI symptoms at the present time . We will sign off from today and if there any new problems, please call me back.
[2017-02-03] MEDS: Mometasone/Formoterol 120 PUFF INHALER INH SCH (18:57)
--- OUTSIDE RECORDS SUMMARY | 2017-02-03 20:53 | XMS | Clinical Summary ---
:1935 Author Organization [facility] Address [address] [place] [address] Phone Care Team Providers Name Role Phone , Primary Care Provider Unavailable Allergies Not on File Current Medications Not on file Active Problems Not on file Social History Tobacco Use Types Packs/Day Years Used Date Never Assessed Sex Assigned at Date Recorded Not on file Last Filed Vital Signs Not on file Plan of Treatment Not on file Results Not on filefrom Last 3 Months
[2017-02-03] MEDS: Temazepam 15 MG CAP PO PRN (20:58)
[2017-02-03] MEDS: Doxycycline 100 MG CAP PO SCH (21:00)
[2017-02-04] MEDS: Diabetic Tussin 200 MG/10 ML UDCUP PO PRN (01:52)
[2017-02-04] MEDS: diphenhydrAMINE 25 MG CAP PO PRN (03:27)
[2017-02-04 05:05] LABS: Anion Gap 11 mmol/L (10-20); BUN (Urea Nitrogen) 11 mg/dL (9.8-20.1); Calc. Creatinine Clearance 84 mL/min (70-130); Calcium 8.6 mg/dL (7.8-10.44); Carbon Dioxide 26 mmol/L (23-31); Chloride 103 mmol/L (98-107); Estimated GFR-MDRD Greater than 90
[2017-02-04 05:28] LABS: Band 6 % (5-11); Hematocrit 31.6 % (36.0-47.0); Mean Platelet Volume 7.7 fL (7.4-10.4); Neutrophil 90 % (42-75); Red Blood Cell (RBC) Count 3.33 mill/uL (4.20-5.40); White Blood Cell (WBC) Count 21.4 thou/uL (4.8-10.8)
[2017-02-04] MEDS: Mometasone/Formoterol 120 PUFF INHALER INH SCH (06:57)
[2017-02-04] MEDS: Doxycycline 100 MG CAP PO SCH (08:18)
[2017-02-04] MEDS: Lisinopril 20 MG TAB PO SCH (08:18)
[2017-02-04] MEDS: ALPRAZolam 0.25 MG TAB PO SCH (08:22)
[2017-02-04] MEDS: guaiFENesin ER 600 MG TAB PO SCH (08:22)
[2017-02-04] MEDS: Metoprolol Tartrate 25 MG TAB PO SCH (08:22)
[2017-02-04] MEDS: Saccharomyces boulardii 250 MG CAP PO SCH (08:22)
[2017-02-04] MEDS: Venlafaxine HCl XR 75 MG CAP PO SCH (08:22)
[2017-02-04] MEDS: Docusate 100 MG CAP PO SCH (08:23)
[2017-02-04] MEDS ORDERED: Benzonatate 100 MG CAP PO PRN (09:59)
--- NOTE | 2017-02-04 10:01 | PDOC.PN ---
- Subjective Encounter Start Date: 02/04/17 Encounter Start Time: 10:00 Subjective: wants to go home ,impatient and agitated -: walking,eating/drinking by herself.BM ,Urine output good - Objective Resuscitation Status: Resuscitation Status DNR:Do Not Resuscitate MAR Reviewed: Yes Vital Signs & Weight: Vital Signs (12 hours) Temp Pulse Resp BP BP BP BP 02/04/17 08:18 118/79 02/04/17 08:00 98.6 F 105 H 20 137/80 02/04/17 06:56 98 20 02/04/17 04:00 98.5 F 96 16 152/84 H 02/03/17 23:57 98.3 F 93 18 145/79 H Pulse Ox 02/04/17 08:18 02/04/17 08:00 97 02/04/17 06:56 96 02/04/17 04:00 94 L 02/03/17 23:57 96 Weight Weight 167 lb 1.766 oz Most Recent Monitor Data Heart Rate from ECG 96 NIBP 131/69 NIBP BP-Mean 101 Respiration from ECG 21 SpO2 97 I&O: 02/03/17 02/04/17 02/05/17 06:59 06:59 06:59 Intake Total 2620 Output Total 600 1650 Balance -600 970 Result Diagrams: 02/04/17 04:17 02/04/17 04:17 Additional Labs: Laboratory Tests 01/26/17 01/27/17 01/28/17 16:43 02:17 04:45 WBC 14.8 H 10.0 7.8 Hgb 14.2 15.6 02/01/17 02/01/17 02/02/17 04:54 11:51 04:40 WBC 22.1 H Hgb 12.7 12.0 11.5 L 02/03/17 02/04/17 07:41 04:17 WBC 21.8 H 21.4 H Hgb 11.1 L 10.5 L Phys Exam - Physical Examination Constitutional: NAD HEENT: PERRLA, moist MMs, sclera anicteric, oral pharynx no lesions Neck: no nodes, no JVD, supple, full ROM Respiratory: no wheezing, no rales, no rhonchi, clear to auscultation bilateral Cardiovascular: RRR, no significant murmur, no rub, gallop Gastrointestinal: soft, non-tender, no distention, positive bowel sounds Musculoskeletal: no edema, pulses present Neurological: non-focal, normal sensation, moves all 4 limbs Psychiatric: normal affect, A&O x 3 Skin: no rash Dx/Plan (1) Syncopal episodes Code(s): R55 - SYNCOPE AND COLLAPSE Status: Acute Comment: due to AVB, required PM (2) Acute bronchitis Code(s): J20.9 - ACUTE BRONCHITIS, UNSPECIFIED Status: Acute Comment: on ABX per [facility] (3) Anemia due to acute blood loss Code(s): D62 - ACUTE POSTHEMORRHAGIC ANEMIA Status: Acute Comment: likley hemorrhoidal bleed (4) Elevated troponin Code(s): R74.8 - ABNORMAL LEVELS OF OTHER SERUM ENZYMES Status: Acute Comment: demand ischemia (5) Hypokalemia Code(s): E87.6 - HYPOKALEMIA Status: Resolved (6) S/P cardiac pacemaker procedure Status: Acute (7) Anxiety and depression Code(s): F41.8 - OTHER SPECIFIED ANXIETY DISORDERS Status: Chronic (8) HTN (hypertension) Code(s): I10 - ESSENTIAL (PRIMARY) HYPERTENSION Status: Chronic (9) Hyperlipidemia Code(s): E78.5 - HYPERLIPIDEMIA, UNSPECIFIED Status: Chronic (10) GI bleed Code(s): K92.2 - GASTROINTESTINAL HEMORRHAGE, UNSPECIFIED Status: Resolved (11) Pneumothorax, acute Code(s): J93.83 - OTHER PNEUMOTHORAX Status: Resolved Comment: s/p chest tube - Plan plan discussed w/ family, continue antibiotics, respiratory therapy, incentive spirometry, out of bed/ambulate, DVT proph w/SCDs OK to Dc home on PO ABx and steroid taper.scripts given. -: will f/u w PCP as an OP. -: see DC summary for details * . Review of Systems - Medications/Allergies Allergies/Adverse Reactions: Allergies Allergy/AdvReac Type Severity Reaction Status Date / Time MORPHINE Allergy Uncoded 01/26/17 22:02 Medications: Current Medications Acetaminophen (Tylenol) 650 mg PO Q4H PRN PRN Reason: Headache/Fever or Pain Last Admin: 02/02/17 12:30 Dose: 650 mg Hydrocodone Bitart/Acetaminophen ([place] 5/325) 1 tab PO Q4H PRN PRN Reason: Mild Pain Last Admin: 01/30/17 06:21 Dose: 1 tab Hydrocodone Bitart/Acetaminophen ([place] 5/325) 2 tab PO Q4H PRN PRN Reason: For Moderate Pain Last Admin: 01/29/17 16:30 Dose: 2 tab Hydrocodone Bitart/Acetaminophen ([place] 10/325) 1 tab PO Q4H PRN PRN Reason: Severe Pain (7-10) Last Admin: 01/30/17 13:19 Dose: 1 tab Al Hydroxide/Mg Hydroxide (Maalox) 15 ml PO Q4H PRN PRN Reason: Heartburn or Indigestion Albuterol/Ipratropium (Duoneb) 3 ml NEB [id number] PRN PRN Reason: SOB &/or Wheezing Albuterol/Ipratropium (Duoneb) 3 ml NEB [id number] [facility] Last Admin: 02/04/17 06:56 Dose: 3 ml Alprazolam (Xanax) 0.25 mg PO BID [facility] Last Admin: 02/04/17 08:22 Dose: 0.25 mg Benzonatate (Tessalon) 100 mg PO Q4H PRN PRN Reason: Cough Bisacodyl (Dulcolax) 10 mg SD DAILYPRN PRN PRN Reason: Constipation Bisacodyl (Dulcolax) 10 mg PO DAILYPRN PRN PRN Reason: Constipation Calcium Carbonate (Tums) 1,000 mg PO Q4H PRN PRN Reason: Heartburn or Indigestion Diphenhydramine HCl (Benadryl) 25 mg PO Q6H PRN PRN Reason: Itching Last Admin: 02/04/17 03:27 Dose: 25 mg Docusate Sodium (Colace) 100 mg PO BID [facility] Last Admin: 02/04/17 08:23 Dose: Not Given Doxycycline Hyclate (Vibramycin) 100 mg PO BID [facility] Last Admin: 02/04/17 08:18 Dose: 100 mg Guaifenesin (Mucinex) 600 mg PO Q12HR [facility] Last Admin: 02/04/17 08:22 Dose: 600 mg Guaifenesin (Robitussin Sf) 300 mg PO Q4H PRN PRN Reason: .COUGH Last Admin: 02/04/17 01:52 Dose: 300 mg Hydralazine HCl (Apresoline) 10 mg SLOW IVP Q4H PRN PRN Reason: SBP Greater Than 180 Last Admin: 02/02/17 06:21 Dose: 10 mg Lisinopril (Zestril) 40 mg PO DAILY [facility] Last Admin: 02/04/17 08:18 Dose: 40 mg Methylprednisolone Sodium Succinate (Solu-Medrol) 40 mg IVP Q6HR [facility] Last Admin: 02/04/17 05:40 Dose: 40 mg Metoprolol Tartrate (Lopressor) 25 mg PO BID [facility] Last Admin: 02/04/17 08:22 Dose: 25 mg Mometasone Furoate/Formoterol Fumar (Dulera 200 Mcg/5 Mcg Inhaler) 2 puff INH BID-RT [facility] Last Admin: 02/04/17 06:57 Dose: 2 puff Nitroglycerin (Nitrostat) 0.4 mg SL Q5MIN PRN PRN Reason: Chest Pain Ondansetron HCl (Zofran) 4 mg IVP Q6H PRN PRN Reason: Nausea/Vomiting Last Admin: 01/31/17 14:19 Dose: 4 mg Pantoprazole Sodium (Protonix) 40 mg PO 2100 [facility] Last Admin: 02/03/17 20:59 Dose: 40 mg Saccharomyces Boulardii (Florastor) 250 mg PO DAILY [facility] Last Admin: 02/04/17 08:22 Dose: 250 mg Silver Sulfadiazine (Silvadene) 0 gm TOP Q12H PRN PRN Reason: Rash/Topical Irritation Temazepam (Restoril) 15 mg PO HSPRN PRN PRN Reason: Insomnia Last Admin: 02/03/17 20:58 Dose: 15 mg Tramadol HCl (Ultram) 50 mg PO Q4H PRN PRN Reason: FOR MODERATE PAIN 4-6 Last Admin: 01/29/17 00:29 Dose: 50 mg Venlafaxine HCl (Effexor Xr) 75 mg PO DAILY [facility] Last Admin: 02/04/17 08:22 Dose: 75 mg
--- NOTE | 2017-02-04 13:15 | EKG ---
Test Reason : STAT Blood Pressure : / mmHG Vent. Rate : 111 BPM Atrial Rate : 111 BPM P-R Int : 184 ms QRS Dur : 128 ms QT Int : 412 ms P-R-T Axes : 064 019 120 degrees QTc Int : 560 ms Atrial-sensed ventricular-paced rhythm with frequent Premature ventricular complexes Abnormal ECG When compared with ECG of 30-JAN-2017 00:24, Electronic ventricular pacemaker has replaced Sinus rhythm Confirmed by AUGUSTO VALDES ([id number]) on 02/04/2017 1:14:43 PM Referred By: Confirmed By:AUGUSTO VALDES
[2017-02-04 15:49] VITALS: BP 139/81; TEMP 98.1
--- NOTE | 2017-02-04 16:04 | PRG ---
DATE OF SERVICE: 02/04/2017 SUBJECTIVE: Ms. Montez has been walking around. The family feels comfortable with the idea of her g oing home. OBJECTIVE: VITAL SIGNS: She is afebrile, heart rate is 98-105, blood pressure 118/79, respiratory rate is 20 a nd oximetry is 97% on 2 liters. IMPRESSION: 1. Status post pneumothorax with pacemaker. 2. Status post pacemaker. 3. Rectal bleeding, status post transfusion. PLAN: Physical therapy as an outpatient. Supportive care. There is no reason for me to schedule a n appointment with her unless family wishes. She did have some wheezing, but I suspect a lot of thi s is secondary to mucous plugging. She did improve with steroids. She should have a steroid taper; however, probably a week to 10 days.
--- NOTE | 2017-02-05 05:54 | DIS ---
DATE OF ADMISSION: 01/26/2017 DATE OF DISCHARGE: 02/04/2017 CONDITION AT THE TIME OF DISCHARGE: Stable and improved. DISCHARGE DIAGNOSES: 1. Syncope secondary to bundle-branch block, status post pacemaker placement. 2. Acute bronchitis. 3. Anemia due to hemorrhoidal bleed. 4. Questionable gastrointestinal bleed, which did not reoccur. 5. Elevated troponin secondary to demand ischemia. 6. Hypertension. 7. Dyslipidemia. 8. Acute pneumothorax, status post chest tube placement and then discontinuation. DISCHARGE DISPOSITION: Home with home health. PRIMARY CARE PHYSICIAN: Will Hoff MD DISCHARGE MEDICATIONS: As follows: 1. Doxycycline 100 mg p.o. b.i.d. for 7 more days, p.o. daily for 10 days and Medrol Dosepak. 2. Xanax 0.25 p.o. b.i.d. 3. Tylenol as needed. 4. Lisinopril 40 mg daily. 5. Toprol-XL 50 mg p.o. b.i.d. 6. Multivitamin daily. 7. Prilosec 20 mg daily. 8. Effexor 75 mg daily. 9. Benadryl 50 mg at bedtime as needed. CONSULTATIONS: Include: 1. Cardiology, Dr. Raúl Birmingham. 2. Electrophysiology, Dr. Juan Odonnell. 3. Pulmonary Medicine, Dr. Vinicius Lopez. 4. Gastroenterology, Dr. Florentin Mejia. 5. Neurology, Dr. Katarzyna Barnard. PROCEDURES DONE: 1. In the hospital include a CT scan of the facial bones upon presentation, which shows acute traum atic left infraorbital premaxillary superficial soft tissue contusion and no fractures. 2. CT scan of the brain upon presentation, which shows a severe opacification of left maxillary sin us. No acute intracranial finding. 3. CT angio of the thorax, which was negative for any pulmonary embolism. 4. Nuclear medicine stress test, which was negative for any evidence of reversible ischemia. Eject ion fraction 77%. 5. Transthoracic echocardiogram, which shows ejection fraction of 55%-60% and hypokinesis of the an terolateral wall in the left ventricle. 6. Placement of a pacemaker on 01/28/2017. 7. Placement of a chest tube on 01/29/2017. 8. Multiple chest x-rays. ADMISSION HISTORY: Ms. Montez is an 81-year-old female with a past medical history of dyslipidemia, breast cancer, hypertension, who presented to the emergency room for complaints of syncopal episode. Upon presentation, she had a bruise under her left eye and a CT scan of the brain and face was don e. It was negative for any fractures, but did show sinus disease. She also underwent a CT angio of the chest, which was negative for pulmonary embolism. She was found to have elevated troponin mild ly at 0.06. She did receive one dose of aspirin and one dose of therapeutic Lovenox in the emergenc y room. Cardiology was consulted and cardiac enzymes were trended and echocardiogram was ordered. The patient also underwent a nuclear medicine. HOSPITAL COURSE: Dr. Birmingham from Cardiology saw the patient and recommended that she most likely has sick sinus syndrome given left bundle-branch block on her EKG. He recommended that she undergo es a noninvasive stress test and also EP consultation. Both of them were done and eventually the penny perdomo underwent a pacemaker placement by Dr. Odonnell for sick sinus syndrome. Her stress test did not show any ischemia. Her echocardiogram findings as above. The patient developed pneumothorax after the pacemaker placement, and for this reason, Pulmonary Med yamilet was consulted. She underwent placement of the chest tube by Dr. Lopez and was followed throug hout her rest of her hospitalization. Eventually, the chest tube was discontinued and she was stabl e without any reoccurrence of the pneumothorax on the chest x-rays. Neurology had to be consulted shortly after admission for syncope as well. Dr. Barnard saw the patient and recommended that this is most likely cardiac in origin as stated above. GI needed to be consulted as the patient had some hematochezia observed during her hospitalization. Her H and H remained stable throughout her hospitalization. Dr. Mejia saw the patient. Her fe rashid occult blood testing was negative. This was thought to be secondary to anal outlet bleeding. S he did not undergo any colonoscopy or EGD at this time. Rectal bleeding resolved. Eventually, the patient was stable enough to be walking around in the room by herself and was able t o feed herself and take care of herself and was eager to go home. Her antibiotics were changed to o ral antibiotic by Pulmonary Medicine as well. She was discharged on doxycycline and Medrol Dosepak. She was seen and examined prior to discharge. Please see hospitalist progress note from today's lupe e for further detail including [id number] interaction. Discharge plan was discussed with the jose ent's son and [id number] present in the room. They verbalized understanding. She was cleared for discharge from various consultants at this point of time. Total time spent in the discharge of this patient 35 minutes.
== END 2017-02-04 16:01 | disposition home health service (06) | DRG 243 ==
LOC: ERS 16:16 → 2NO 19:11 → CCU 01-29 08:50 → T4-B 01-31 17:07 → IMCU/EMU 02-01 10:02 → T4-A 02-02 16:26
PROVIDERS: ADMIT Internal Medicine; ATTEND Internal Medicine
PROC: 4B02XSZ Measurement of Cardiac Pacemaker, External Approach (ICD-10-PCS; principal; 2017-01-28)
PROC: 0JH606Z Insertion of Pacemaker, Dual Chamber into Chest Subcutaneous Tissue and Fascia, Open Approach (ICD-10-PCS; 2017-01-28)
PROC: 02H63JZ Insertion of Pacemaker Lead into Right Atrium, Percutaneous Approach (ICD-10-PCS; 2017-01-28)
PROC: 02HK3JZ Insertion of Pacemaker Lead into Right Ventricle, Percutaneous Approach (ICD-10-PCS; 2017-01-28)
PROC: 4A023FZ Measurement of Cardiac Rhythm, Percutaneous Approach (ICD-10-PCS; 2017-01-28)
PROC: 4A0234Z Measurement of Cardiac Electrical Activity, Percutaneous Approach (ICD-10-PCS; 2017-01-28)
PROC: 02K83ZZ Map Conduction Mechanism, Percutaneous Approach (ICD-10-PCS; 2017-01-28)
PROC: 0W9B30Z Drainage of Left Pleural Cavity with Drainage Device, Percutaneous Approach (ICD-10-PCS; 2017-01-29)
PROC: 0W9B30Z Drainage of Left Pleural Cavity with Drainage Device, Percutaneous Approach (ICD-10-PCS; 2017-01-29)
DX: I49.5 Sick sinus syndrome (principal); I45.2 Bifascicular block; C43.52 Malignant melanoma of skin of breast; E87.1 Hypo-osmolality and hyponatremia; K92.1 Melena; J95.811 Postprocedural pneumothorax; D62 Acute posthemorrhagic anemia; I49.3 Ventricular premature depolarization; R00.0 Tachycardia, unspecified; E78.5 Hyperlipidemia, unspecified; Y83.8 Other surgical procedures as the cause of abnormal reaction of the patient, or of later complication, without mention of misadventure at the time of the procedure; Y71.3 Surgical instruments, materials and cardiovascular devices (including sutures) associated with adverse incidents; E87.6 Hypokalemia; S00.83XA Contusion of other part of head, initial encounter; W19.XXXA Unspecified fall, initial encounter; J20.9 Acute bronchitis, unspecified
CPT/HCPCS: 33208; 36415; 70450; 70486; 71010; 71275; 78452; 80048; 80053; 80061; 81001; 82553; 83690; 83735; 83880; 84443; 84484; 85014; 85018; 85025; 85049; 85379; 85610; 85730; 86850; 86900; 86901; 93005; 93010; 93017; 93306; 93620; 93623; 93798; 94640; 94760; 96360; 96372; A4216; A4353; A9500; C1730; C1769; C1785; C1898; G8978-GP-CK; G8979-GP-CI; J0280; J0360; J0692; J1644; J1650; J1885; J1956; J2405; J2704; J2785; J2920; J3010; J3490; J7050; J7620

== ENCOUNTER 2017-05-28 08:41 | Outpatient (CLI) | payer MEDICARE, OTHER ==
[2017-05-28 09:28] LABS: Anion Gap 13 mmol/L (10-20); BUN (Urea Nitrogen) 17 mg/dL (9.8-20.1); Calc. Creatinine Clearance 0 mL/min (70-130); Calcium 9.7 mg/dL (7.8-10.44); Carbon Dioxide 29 mmol/L (23-31); Chloride 101 mmol/L (98-107); Estimated GFR-MDRD 65; Glucose 114 mg/dL (83-110); Sodium 139 mmol/L (136-145)
--- NOTE | 2017-05-28 11:42 | CT ---
CT ABDOMEN AND PELVIS WITHOUT AND WITH CONTRAST: History: Incontinence for years which is getting worse. Hematuria. Prior bladder suspension surgery. Technique: Multiple contiguous axial images were obtained in a CT of the abdomen and pelvis without a nd with IV contrast. Coronal reformats were performed. FINDINGS: There are hypodensities in the liver measuring up to 2.8 cm in size which represent cysts. The gallbl adder, adrenal glands, spleen and pancreas are unremarkable. No calcifications are seen in the kidney. There is no evidence of solid renal mass or hydronephrosis. No abnormality is seen within either ureter. A small bubble of air is seen in the urinary bladder wh ich may be secondary to recent instrumentation. This could also be secondary to infectious process. Scattered diverticula are seen in the colon. The small bowel is unremarkable. The patient is status p ost hysterectomy. No abdominal or pelvic lymphadenopathy are seen. Atherosclerotic calcifications are seen in the aorta. Degenerative changes are seen in the spine. The visualized inferior thorax and abdominal wall soft ti ssues are unremarkable. IMPRESSION: 1. No renal or urinary collecting system abnormality. 2. Hepatic cysts. 3. Diverticulosis. POS: [facility]
[2017-05-28] MEDS ORDERED: Iopamidol 370 76% 100 ML VIAL ONE (13:23)
== END 2017-05-28 08:42 | disposition home or self-care (01) ==
LOC: CT 08:41
PROVIDERS: ATTEND Urology
DX: R35.0 Frequency of micturition (principal); R31.29 Other microscopic hematuria; K57.90 Diverticulosis of intestine, part unspecified, without perforation or abscess without bleeding; K76.89 Other specified diseases of liver
CPT/HCPCS: 36415; 74178; 80048

== ENCOUNTER 2017-08-14 08:54 | Outpatient (CLI) | payer MEDICARE, OTHER ==
[2017-08-14] MEDS ORDERED: ISOVUE-370 76%-LOCM 1 ML ONE (12:04)
--- NOTE | 2017-08-14 12:16 | RAD ---
VOIDING CYSTOURETHROGRAM: HISTORY: Microhematuria. FINDINGS: The bladder is filled retrograde under fluoroscopic observation. The filled bladder appears unremarkable with normal contour. No evidence of ureteral reflux. The catheter was removed and the patient voided spontaneously on the fluoroscopic table. Moderate re sidual urine remained after voiding on the fluoroscopic table. However, the patient went to the restroom and continued voiding and a postvoid film shows no residual contrast within the bladder indicating adequate emptying in the restroom. IMPRESSION: Unremarkable voiding cystourethrogram. POS: [facility]
== END 2017-08-14 08:55 | disposition home or self-care (01) ==
LOC: RAD 08:54
PROVIDERS: ATTEND Urology
DX: R31.29 Other microscopic hematuria (principal)
CPT/HCPCS: 51600; 74430

== ENCOUNTER 2018-06-09 01:36 | Outpatient (CLI) | payer MEDICARE, OTHER ==
[2018-06-09 11:59] LABS: Mean Corpuscular Hemoglobin 30.9 pg (27.0-31.0); Mean Corpuscular Volume 93.5 fL (78.0-98.0); Mean Platelet Volume 8.1 fL (7.4-10.4); Platelet Count 283 thou/uL (130-400); RBC Distribution Width 12.7 % (11.5-14.5); White Blood Cell (WBC) Count 7.8 thou/uL (4.8-10.8)
[2018-06-09 12:19] LABS: Anion Gap 14 mmol/L (10-20); BUN (Urea Nitrogen) 14 mg/dL (9.8-20.1); Calc. Creatinine Clearance 0 mL/min (70-130); Calcium 9.4 mg/dL (7.8-10.44); Carbon Dioxide 25 mmol/L (23-31); Chloride 102 mmol/L (98-107); Estimated GFR-MDRD 70; Glucose 89 mg/dL (83-110); Potassium 4.1 mmol/L (3.5-5.1); Sodium 137 mmol/L (136-145)
== END 2018-06-09 01:37 | disposition home or self-care (01) ==
LOC: LABBT 01:36
PROVIDERS: ATTEND Obstetrics & Gynecology
DX: Z01.818 Encounter for other preprocedural examination (principal); N81.6 Rectocele
CPT/HCPCS: 80048; 85027; 86850; 86900; 86901; 93005; 93010

== ENCOUNTER 2018-06-10 10:59 | Observation (INO) | payer MEDICARE, OTHER ==
--- NOTE | 2018-06-09 07:36 | HP ---
She is scheduled for surgery 06/10/2018. HISTORY OF PRESENT ILLNESS: Ms. Montez is an 83-year-old white female, G4, P2, A2 with previous total abdominal hysterectomy and bladder repair x2, who was referred by Dr. Adamaris Florez, from [facility]. She has been treated with Dr. Florez for overactive bladder with Myrbetriq with improvement of her symptoms. Dr. Florez noted her to have a significant rectocele on pelvic exam and was referred for evaluation. The patient reports that she does feel a bulge in the vagina. She uses stool softener for bowel movements, which are regular. She denies any significant splinting issues, but would like to have rectocele fixed. PAST MEDICAL HISTORY: For hyperlipidemia, chronic hypertension, anxiety, and overactive bladder. PAST SURGICAL HISTORY: As noted, her previous surgeries per HPI including the bladder suspension x2, tonsillectomy, and hysterectomy total. PRIMARY CARE PHYSICIAN: Her primary care physician is Dr. Will Hoff. CURRENT MEDICATIONS: 1. Alprazolam 0.5 mg daily. 2. Bupropion SR 150 mg daily. 3. Carvedilol 12.5 mg daily. 4. Diazepam 5 mg as needed. 5. Lisinopril 5 mg daily for hypertension. 6. Montelukast 10 mg daily for rhinitis. 7. Myrbetriq 50 mg daily for overactive bladder. PHYSICAL EXAMINATION: VITAL SIGNS: Her height is 5 feet 5 inches, weight 159 pounds, and BMI 26.5. Blood pressure 134/62, pulse 90, and respiratory rate 18. HEENT: Within normal limits. CHEST: Clear to auscultation. HEART: Regular rate and rhythm. S1 and S2 heart sounds. No murmurs, rubs, or gallops. ABDOMEN: Soft, nontender, and nondistended with no palpable masses. PELVIC: Vulva and vagina had no lesions. Bladder and urethral meatus had no lesions. There is no significant cystocele appreciated on Valsalva, rectocele grade 2 to 3 was noted. The anterior vaginal vault appeared suspended. Cervix and uterus were surgically absent. Adnexa were nontender with no masses. ASSESSMENT: This is an 83-year-old white female with previous complete hysterectomy and bladder suspensions, now with symptomatic grade 2 to 3 rectocele. PLAN: Plan is to proceed with posterior repair on 06/10/2018. Risks and benefits of procedure discussed in detail, she is set for surgery. Job ID: [id number]
[2018-06-10] MEDS ORDERED: Lidocaine 1% w/Epinephrine 1:100K 20 ML VIAL ONE (13:21)
[2018-06-10] MEDS ORDERED: Fentanyl 250 MCG/5 ML VIAL ONE (13:26)
[2018-06-10] MEDS ORDERED: Bacitracin Zinc Ointment 30 gm TUBE ONE (14:40)
[2018-06-10] MEDS ORDERED: Dexamethasone 20 MG/5 ML VIAL ONE (15:13)
[2018-06-10] MEDS ORDERED: PROPOFOL 200 MG/20 ML VIAL ONE (15:13)
[2018-06-10] MEDS ORDERED: Glycopyrrolate 0.2 MG/ML 5 ML SYRINGE ONE (15:13)
[2018-06-10] MEDS ORDERED: Ondansetron PF 4 MG/2 ML Vial ONE (15:13)
[2018-06-10] MEDS ORDERED: Rocuronium Bromide 10 MG/ML (10ML VIAL) ONE (15:13)
[2018-06-10] MEDS ORDERED: Morphine 2 MG/ML SYRINGE SLOW IVP PRN (15:52)
[2018-06-10] MEDS ORDERED: traMADol HCl 50 MG TAB PO PRN (15:53)
[2018-06-10] MEDS ORDERED: Ondansetron PF 4 MG/2 ML Vial SLOW IVP PRN (15:55)
[2018-06-10] MEDS ORDERED: Acetaminophen 500 MG TAB PO PRN (15:55)
[2018-06-10] MEDS ORDERED: ALPRAZolam 0.25 MG TAB PO PRN (16:01)
[2018-06-10] MEDS ORDERED: Artificial Tears 18 DROP/0.9 ML EA EYE PRN (16:01)
[2018-06-10] MEDS: Lactated Ringer's 1,000 ML IV SCH (16:55)
[2018-06-10 16:58] VITALS: BMI 26.1
[2018-06-10] MEDS: Venlafaxine HCl XR 75 MG CAP PO SCH (19:49)
[2018-06-10] MEDS: Carvedilol 6.25 MG TAB PO SCH (19:49)
[2018-06-10] MEDS ORDERED: diphenhydrAMINE 50 MG CAP PO PRN (20:08)
[2018-06-10] MEDS ORDERED: OSTEOBIFLEX PO SCH (21:00)
[2018-06-11] MEDS: Lactated Ringer's 1,000 ML IV SCH ×2 (02:23→08:58)
[2018-06-11] MEDS: Carvedilol 6.25 MG TAB PO SCH (08:58)
[2018-06-11] MEDS ORDERED: Calcium Carbonate + Vit D 1 TAB PO SCH (09:00)
[2018-06-11] MEDS ORDERED: Lisinopril 5 MG TAB PO SCH (09:00)
[2018-06-11] MEDS ORDERED: Montelukast Sodium 10 mg Tablet PO SCH (09:00)
[2018-06-11] MEDS ORDERED: Multivitamin W/ Minerals 1 TAB PO SCH (09:00)
[2018-06-11] MEDS ORDERED: Aspirin Chewable 81 MG TAB PO SCH (09:00)
[2018-06-11] MEDS: Venlafaxine HCl XR 75 MG CAP PO SCH (09:01)
--- NOTE | 2018-06-11 09:54 | PDOC.EVN ---
Event Note - Event Note Event Note: Doing well this morning. No nausea, Good pain control. Aquino removed. Waiting to void. O:AFVSS abdomen soft/ non tender. perineum=dry and intact. A/P: post op day 1 from posterior repair. D/c after patient voids. Will schedule follow up in 4 weeks.
[2018-06-11 11:47] VITALS: BP 134/70; TEMP 98.9
--- NOTE | 2018-06-11 11:54 | OP ---
DATE OF PROCEDURE: 06/10/2018 PREOPERATIVE DIAGNOSES: 1. Symptomatic grade 2 rectocele. 2. Prior history of a hysterectomy with anterior repair and then another history of a transvaginal taping procedure. POSTOPERATIVE DIAGNOSES: 1. Symptomatic grade 2 rectocele. 2. Prior history of a hysterectomy with anterior repair and then another history of a transvaginal taping procedure. PROCEDURE PERFORMED: Posterior repair. TRICOT KNITTER SURGEON: Aurea Lund MD ANESTHESIA: General endotracheal. ESTIMATED BLOOD LOSS: 25 mL. COMPLICATIONS: None. COUNTS: Correct x2. ANTIBIOTICS: Ancef 2 g on-call to OR. FINDINGS: 1. Anterior vagina. Well supported. 2. Grade 2 rectocele, status post reduction. 3. No evidence of suture placed in the rectum postprocedure. DISPOSITION: Recovery room and planned for observation overnight. DESCRIPTION OF PROCEDURE: The patient previously received informed consent in regard to surgery. She was taken back to the operating room, where she received general endotracheal anesthetic agent without complications. She was placed in dorsal lithotomy position with the use of Vishal stirrups and prepped and draped in usual sterile fashion. Aquino catheter was placed. At this time, exam was performed with the previously mentioned findings. Then, two Allis clamps were placed at the 4 and 8 o'clock position of the posterior vaginal introitus. The posterior vaginal mucosa was infiltrated with 1% lidocaine with epinephrine. The midline incision was made starting at the opening of the vaginal introitus towards the vaginal cuff line. The edges of the posterior mucosa were grasped with Allis clamps for counter traction. The rectocele was then dissected both sharply and bluntly in its entirety. There was noted to be some attenuation of the patient's [place] endopelvic fascia due to her age most likely. The endopelvic fascia edges were grasped and then, they were plicated with interrupted [id number] sutures of 0 Vicryl. The rectocele was then reduced from caudally towards the opening of the introitus. Hemostasis was confirmed. The vaginal mucosa was then closed with interrupted 2-0 Vicryl sutures in a [id number] stitch fashion and incorporating some of the endopelvic fascia to rid any space. A moistened Kerlix was then placed in the vaginal vault for the pressure packing and a rectal exam was performed with no evidence of suture placement in the rectal mucosa. The surgery was terminated. No anesthetic or surgical complications occurred. Job ID: [id number]
--- NOTE | 2018-06-12 01:25 | DIS ---
DATE OF ADMISSION: 06/10/2018 DATE OF DISCHARGE: 06/11/2018 DIAGNOSES: Symptomatic grade 2 rectocele, comorbid history of prior hysterectomy, and prior bladder suspension x2. SUMMARY OF HOSPITAL COURSE: Ms. Montez underwent uncomplicated posterior repair on 06/10/2018. Noted during the surgery, she did have diminutive amounts of her [place] endopelvic fascia, someone making the rectocele repair more tenuous but postoperatively, the patient has done well. She has stable vital signs. She is ambulating and voiding without difficulty postop day #1. Good pain control was noted. Her other chronic medical conditions have been well controlled including her chronic hypertension. She was discharged postop day #1 and will have a followup in 4 weeks. 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 She has had a previous mesh placement in the past, and risks and benefits of revising the mesh most likely outweigh any benefit with the potential complications that could occur with mesh removal. She is to use a daily stool softener and avoid constipation and resume her routine medications for her health maintenance. Job ID: [id number]
== END 2018-06-11 11:48 | disposition home or self-care (01) ==
LOC: SDC 10:59 → SURG A 16:13
PROVIDERS: ADMIT Obstetrics & Gynecology; ATTEND Obstetrics & Gynecology
PROC: 0JQC0ZZ Repair Pelvic Region Subcutaneous Tissue and Fascia, Open Approach (ICD-10-PCS; principal; 2018-06-10)
DX: N81.6 Rectocele (principal); I10 Essential (primary) hypertension; E78.5 Hyperlipidemia, unspecified; F41.9 Anxiety disorder, unspecified; N32.81 Overactive bladder; Z79.899 Other long term (current) drug therapy; Z90.710 Acquired absence of both cervix and uterus
CPT/HCPCS: 57250; G0378; J1100; J2001; J2405; J2704; J3010

== ENCOUNTER 2019-01-08 12:31 | Emergency (ER) | payer MEDICARE, OTHER ==
[2019-01-08 13:14] LABS: #Lymphocytes 0.3 thou/uL (1.20-3.40); #Monocytes 0.3 thou/uL (0.11-0.59); #Neutrophils 5.5 thou/uL (1.40-6.50); %Eosinophils 0.1 % (0.0-10.0); %Lymphocytes 4.9 % (21.0-51.0); %Monocytes 4.5 % (0.0-10.0); %Neutrophils 90.4 % (42.0-75.0); Hemoglobin 13.1 g/dL (12.0-16.0); Mean Corpuscular HGB CONC 35.4 g/dL (32.0-36.0); Mean Corpuscular Hemoglobin 31.7 pg (27.0-31.0); Mean Corpuscular Volume 89.4 fL (78.0-98.0); RBC Distribution Width 12.1 % (11.5-14.5); Red Blood Cell (RBC) Count 4.14 mill/uL (4.20-5.40); White Blood Cell (WBC) Count 6.1 thou/uL (4.8-10.8)
[2019-01-08 13:17] LABS: Bilirubin Negative (Negative); Blood, Urine 2+ (Negative); Clarity Clear (Clear); Glucose, Urine (Dipstick) Normal (Negative); Leukocyte Negative Leu/uL (Negative); Nitrite Negative (Negative); Protein, Urine (Dipstick) 300 mg/dL (Neg-Trace); Squamous Epithelial 0-3 HPF (0-3); Urobilinogen Normal mg/dL (Less than 2)
[2019-01-08 13:20] LABS: Bacteria/HPF 1+ HPF (None Seen)
[2019-01-08 13:28] LABS: ALT (SGPT) 21 U/L (8-55); AST (SGOT) 49 U/L (5-34); Albumin 3.6 g/dL (3.4-4.8); Alkaline Phosphatase 64 U/L (40-110); Anion Gap 10 mmol/L (10-20); BUN (Urea Nitrogen) 14 mg/dL (9.8-20.1); Bilirubin, Total 0.4 mg/dL (0.2-1.2); Calc. Creatinine Clearance 0 mL/min (70-130); Calcium 7.8 mg/dL (7.8-10.44); Carbon Dioxide 25 mmol/L (23-31); Chloride 97 mmol/L (98-107); Estimated GFR-MDRD 68; Globulin 2.4 g/dL (2.4-3.5); Glucose 115 mg/dL (83-110); Lipase 41 U/L (8-78); Potassium 3.3 mmol/L (3.5-5.1); Sodium 129 mmol/L (136-145)
[2019-01-08 13:33] LABS: MDiff Complete? YES; Mean Platelet Volume 8.2 fL (7.4-10.4); Platelet Count 105 thou/uL (130-400); Platelet Morphology Comment Appears Decreased; Polychromasia SLIGHT = 2-3 cells (100X) (0-2/hpf)
--- NOTE | 2019-01-08 14:12 | CT ---
CT ABDOMEN AND PELVIS WITH IV CONTRAST: Date: 01/08/19 INDICATION: History of nausea, vomiting, and abdominal distention. COMPARISON: Prior exam dated 12/04/17. FINDINGS: There is bibasilar atelectasis. There is partial visualization of a pacemaker lead. There are stable hepatic cysts. Pancreas, adrenal glands, and kidneys appear within normal limits. Spleen is normal appearing. No free fluid or enlarged lymph nodes are evident. Normal appendix seen in the right lower quadrant. Reproductive structures are not demonstrated and may be surgically absent. The bladder is decompresse d. There is a moderate amount of retained stool within the colon. There is scattered diverticula involvi ng the colon. There is a moderate amount of retained stool within the colon. Small bowel is of normal caliber. No drainable fluid collection is evident. There is diffuse osteopenia. There is scattered degenerative change. There is levoscoliosis of the uriel mbar spine. IMPRESSION: 1. No CT explanation for the patient's abdominal pain. 2. Bibasilar atelectasis. 3. Hepatic cysts. 4. Colonic diverticulosis. 5. Moderate amount of retained stool within the colon. POS: [facility]
--- NOTE | 2019-01-08 15:29 | CT ---
Head CT without contrast 01/08/2019: COMPARISON: 12/04/2017 HISTORY: Nausea, vomiting, altered mental status TECHNIQUE: Axial CT imaging at 5 mm intervals from vertex through skull base without contrast FINDINGS: There is stable opacification of the left maxillary sinus. The imaged paranasal sinuses and mastoid air cells are otherwise unremarkable. No displaced calvarial fracture. There is atherosclerotic calcification of bilateral cavernous carotid arteries and the distal right vertebral artery. Extensive periventricular, deep, and subcortical white matter hypodensity noted, evidence of prominen t stable small vessel disease. No intracranial hemorrhage, midline shift, or mass effect is noted. Evaluation for intracranial hemorrhage is slightly limited secondary to recent IV contrast administra tion. IMPRESSION: No acute findings.
[2019-01-08] MEDS ORDERED: ISOVUE-370 76%-LOCM 1 ML ONE (18:16)
== END 2019-01-08 14:14 | disposition home or self-care (01) ==
LOC: ERS 12:31
DX: R11.2 Nausea with vomiting, unspecified (principal); E78.5 Hyperlipidemia, unspecified; E78.00 Pure hypercholesterolemia, unspecified; I10 Essential (primary) hypertension; F32.9 Major depressive disorder, single episode, unspecified; F41.9 Anxiety disorder, unspecified; Z79.899 Other long term (current) drug therapy
CPT/HCPCS: 36415; 51701; 70450; 74177; 80053; 81003; 81015; 83690; 85025; 93005; 96360; A4353; Q9966

== ENCOUNTER 2019-01-09 10:42 | Inpatient (IN) | payer MEDICARE, OTHER ==
--- NOTE | 2019-01-09 11:19 | RAD ---
EXAM: CHEST ONE VIEW HISTORY: Cough and weakness. Patient complains of nausea vomiting and diarrhea. COMPARISON: 12/05/2017 FINDINGS: A dual-lead left subclavian cardiac pacemaking device remains in place. Surgical clips again overlie the left chest. Cardiac silhouette and pulmonary vasculature are within normal limits. Mild linear densities are seen at each lung base which may be related to atelectasis or scarring. No consolidatio n or pleural fluid is seen. Vascular calcifications are again seen in the thoracic aorta. Osteopenia is present. There is right glenohumeral osteoarthropathy with postsurgical changes of the right shoulder again seen. There has been no interval change from prior study. IMPRESSION: Stable chest without evidence of an acute cardiopulmonary process.
[2019-01-09 11:26] LABS: #Lymphocytes 0.3 thou/uL (1.20-3.40); #Monocytes 0.2 thou/uL (0.11-0.59); #Neutrophils 3.9 thou/uL (1.40-6.50); %Eosinophils 0.2 % (0.0-10.0); %Lymphocytes 6.6 % (21.0-51.0); %Monocytes 4.6 % (0.0-10.0); %Neutrophils 88.5 % (42.0-75.0); Hemoglobin 13.4 g/dL (12.0-16.0); Mean Corpuscular Hemoglobin 31.8 pg (27.0-31.0); Mean Corpuscular Volume 88.4 fL (78.0-98.0); Mean Platelet Volume 9.5 fL (7.4-10.4); Platelet Count 83 thou/uL (130-400); RBC Distribution Width 12.1 % (11.5-14.5); Red Blood Cell (RBC) Count 4.22 mill/uL (4.20-5.40); White Blood Cell (WBC) Count 4.4 thou/uL (4.8-10.8)
[2019-01-09 11:35] LABS: Albumin 3.5 g/dL (3.4-4.8)
[2019-01-09 11:36] LABS: Chloride 97 mmol/L (98-107); Potassium 3.4 mmol/L (3.5-5.1); Sodium 128 mmol/L (136-145)
[2019-01-09 11:37] LABS: Calcium 7.9 mg/dL (7.8-10.44); Glucose 130 mg/dL (83-110)
[2019-01-09 11:38] LABS: Globulin 2.2 g/dL (2.4-3.5); Protein, Total 5.7 g/dL (6.0-8.3)
[2019-01-09 11:39] LABS: Anion Gap 14 mmol/L (10-20); Bilirubin, Total 0.4 mg/dL (0.2-1.2); Carbon Dioxide 20 mmol/L (23-31)
[2019-01-09 11:40] LABS: Alkaline Phosphatase 74 U/L (40-110)
[2019-01-09 11:41] LABS: Calc. Creatinine Clearance 0 mL/min (70-130); Estimated GFR-MDRD 64
[2019-01-09 11:42] LABS: BUN (Urea Nitrogen) 16 mg/dL (9.8-20.1)
[2019-01-09 11:43] LABS: ALT (SGPT) 38 U/L (8-55); AST (SGOT) 88 U/L (5-34)
[2019-01-09 11:52] LABS: CKMB 0.9 ng/mL (0-6.6)
[2019-01-09] MEDS ORDERED: ISOVUE-370 76%-LOCM 1 ML ONE (12:08)
--- NOTE | 2019-01-09 12:31 | CT ---
Exam: Head CT without contrast HISTORY: Altered mental status COMPARISON: 01/08/2019 FINDINGS: Hemorrhage: No intraparenchymal hemorrhage or extra-axial hematoma. Brain parenchyma: Cortical tesfaye-white matter differentiation is preserved. No mass effect or midline shift. Basilar cisterns are patent.Stable white matter hypodensities due to chronic small vessel ischemic change Ventricular system: Ventricles and sulci are patent and symmetric. Calvarium: Intact. Sinuses and mastoid air cells: Persistent opacification the left maxillary sinus and posterior left e thmoid air cells IMPRESSION: No acute intracranial process.
--- NOTE | 2019-01-09 12:50 | CT ---
CT ANGIOGRAM OF THE THORACIC AORTA CT ANGIOGRAM OF THE ABDOMINAL AORTA: HISTORY: Weakness. Constipation. Chest pain. Abdominal pain. COMPARISON: 08/25/2015. TECHNIQUE: CT angiogram the thoracic and abdominal aorta performed in the axial plane. Three-dimensional reforma tted images are , FINDINGS: Chest CT: Dependent atelectatic changes in the visualized lung parenchyma. There appears to be subsegmental sca rring or atelectasis in the lingula. No masses or consolidation. No pleural effusion. No pneumothorax. Mediastinum: No mass, lymphadenopathy or hematoma. Heart: Normal heart size. No significant pericardial fluid. Abdomen CT: Appropriate arterial phase enhancement of pancreas, spleen and adrenal glands. Symmetric enhancement of the kidneys. Bilaterally no obstructive uropathy. A 3.1 cm cyst in the medial segment of left hepatic lobe. Additional smaller hypodensity in the later al segment of the left hepatic lobe measures 1 cm and has an attenuation coefficient of 11 Hounsfield units suggesting a slightly complex cyst. Lesions are unchanged. No gastrohepatic, retrocrural or periportal lymphadenopathy. No mesenteric mass or adenopathy free air or free fluid. There are stable nonspecific lymph nodes in the central aspect of the mesentery and perineum. Limited evaluation of the alimentary canal by the lack of oral contrast. No evidence of bowel obstruc tion. Occasional diverticulum in the visualized colon. No diverticulitis. Grossly the ileocecal junction is unremarkable. Appendix is partially visualized and normal in caliber. Osseous structures: Extensive degenerative changes of the osseous structures with loss of disc space height and osteophyt e formation. Anterolisthesis of L3 upon L4 and L5 upon S1 is noted. There is vacuum disc phenomenon. CT ANGIOGRAM: The root of the thoracic aorta, ascending thoracic aorta, aortic arch, descending thoracic aorta and abdominal aorta have an appropriate enhancement and luminal diameter. Visualized central pulmonary arteries have appropriate enhancement and luminal diameter. Limited evaluation of lobar, segmental an d subsegmental arteries. The origin of the great vessels of the neck have appropriate enhancement and luminal diameter. The celiac artery origin, superior mesenteric artery origin, left and right sanjuana al arteries and the inferior mesenteric artery origin have appropriate enhancement and luminal diameter. Mild narrowing of the origin of the superior mesenteric artery. Note, there are 2 right sanjuana al arteries and 2 left renal arteries. Aortic bifurcation and visualized iliac arteries are patent. IMPRESSION: No evidence of aneurysm or dissection with regards to the thoracic and abdominal aorta. Transcribed Date/Time: 01/09/2019 1:04 PM
[2019-01-09] MEDS ORDERED: Senokot S 8.6-50 MG TAB PO PRN (15:19)
[2019-01-09] MEDS ORDERED: Ondansetron PF 4 MG/2 ML Vial IVP PRN (15:19)
[2019-01-09] MEDS ORDERED: NS 0.9% w/ 40 MEQ KCL 1,000 ML IV SCH (15:30)
[2019-01-09 15:46] LABS: Troponin I 0.021 ng/mL (< 0.028)
[2019-01-09 19:27] LABS: Troponin I 0.039 ng/mL (< 0.028)
[2019-01-09] MEDS: Famotidine 20 MG TAB PO SCH (21:04)
[2019-01-10 02:12] LABS: Hemoglobin 12.8 g/dL (12.0-16.0); Mean Corpuscular HGB CONC 35.7 g/dL (32.0-36.0); Mean Corpuscular Hemoglobin 31.4 pg (27.0-31.0); Mean Corpuscular Volume 88.1 fL (78.0-98.0); Mean Platelet Volume 10.5 fL (7.4-10.4); Platelet Count 78 thou/uL (130-400); RBC Distribution Width 12.3 % (11.5-14.5); Red Blood Cell (RBC) Count 4.08 mill/uL (4.20-5.40)
[2019-01-10 02:36] LABS: ALT (SGPT) 48 U/L (8-55); AST (SGOT) 104 U/L (5-34); Albumin 3.4 g/dL (3.4-4.8); Alkaline Phosphatase 72 U/L (40-110); Anion Gap 14 mmol/L (10-20); BUN (Urea Nitrogen) 20 mg/dL (9.8-20.1); Bilirubin, Total 0.5 mg/dL (0.2-1.2); Calc. Creatinine Clearance 46 mL/min (70-130); Calcium 7.8 mg/dL (7.8-10.44); Carbon Dioxide 19 mmol/L (23-31); Chloride 99 mmol/L (98-107); Estimated GFR-MDRD 52; Globulin 2.2 g/dL (2.4-3.5); Glucose 86 mg/dL (83-110); Potassium 3.2 mmol/L (3.5-5.1); Protein, Total 5.6 g/dL (6.0-8.3); Sodium 129 mmol/L (136-145)
[2019-01-10 02:49] LABS: Band 40 % (5-11); Lymphocytes 5 % (21-51); MDiff Complete? YES; Monocytes 3 % (0-10); Neutrophil 52 % (42-75); Platelet Morphology Comment Appears Decreased
[2019-01-10 07:46] LABS: Bacteria/HPF 4+ HPF (None Seen); Bilirubin Negative (Negative); Blood, Urine 1+ (Negative); Clarity Turbid (Clear); Glucose, Urine (Dipstick) Normal (Negative); Leukocyte Negative Leu/uL (Negative); Nitrite 2+ (Negative); Protein, Urine (Dipstick) 100 mg/dL (Neg-Trace); RBC/HPF 0-3 HPF (0-3); Squamous Epithelial 0-3 HPF (0-3); Urobilinogen Normal mg/dL (Less than 2)
--- NOTE | 2019-01-10 08:10 | RAD ---
Chest one view HISTORY: Fever. Chest pain. COMPARISON: 01/09/2019. FINDINGS: Cardiac silhouette is magnified by projection. Pulmonary vasculature is unremarkable. Media stinum is midline with aortic calcification and a dual lead left subclavian cardiac electronic device. No confluent airspace consolidation or evidence of pneumothorax. Hemostasis clips over the le ft chest wall. Postoperative changes right shoulder. IMPRESSION: Atherosclerosis. No acute abnormalities demonstrated.
[2019-01-10] MEDS: Famotidine 20 MG TAB PO SCH (09:14)
[2019-01-10] MEDS: Acetaminophen 325 MG TAB PO PRN ×3 (11:27→17:39)
--- NOTE | 2019-01-10 12:32 | HP ---
This is MIRTA Downs dictating a report for Will Montero MD. PRIMARY CARE PHYSICIAN: Dr. Hoff. CHIEF COMPLAINT: Weakness. HISTORY OF PRESENT ILLNESS: Ms. Montez is an 83-year-old female, who presented to the emergency room today with weakness. Daughter reports the patient was evaluated yesterday for similar symptoms, workup was essentially negative, and she was sent back to the independent living at . Reports that she has had some nausea, vomiting, diarrhea this week, fever of 100.1, and diaphoretic. The patient denies any abdominal pain or chest pain. Daughter reports the patient is more confused today than normal. Typically, she is able to ambulate on her own, lives by herself at , and usually is able to get around and do her own ADLs. Within the last couple of days, this had markedly decreased that she is not able to get up and walk on her own. 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 She also has a pacemaker. Son reports that she was hospitalized this time last year for similar symptoms, generalized weakness, and did spend some time over at the inpatient rehab with some good results, and was able to go home and carry on her life as normal. Family are requesting inpatient rehab screening again for this visit, report that they would like to get her back to her baseline and since she had good results last year, would like to explore that option on this visit. Evaluation in the ER, white blood cell count 4.4 and platelet count 83. Chemistry; sodium 128, potassium 3.4, chloride 97, carbon dioxide 20, glucose 130, AST 88. Troponin slightly bumped at 0.029. She had several CT scans over the last 2 days. She [address] a [address] dissection, there was no evidence of aneurysm or dissection in regard to thoracic or abdominal aorta. She had a brain CT, no acute intracranial process. Chest x-ray, stable chest without any evidence of any acute process, and then yesterday, she had an abdominal pelvis CT, which showed no CT explanation of the patient's abdominal pain, bibasilar atelectasis, hepatic cyst, colonic diverticulosis, moderate amount of retained stool within the colon. Son reports today that she did have some diarrhea earlier today, but no vomiting. Does report her mental status is not quite at baseline, she is more confused today than she has been over the week. She will be admitted to Telemetry Unit for further management. REVIEW OF SYSTEMS: Reports some nausea, vomiting, diarrhea this last week, temperature is slightly elevated at 100.1, some diaphoresis, generalized weakness, and altered mental status. Denies any abdominal pain today, is more bloated than normal. All other systems are reviewed and are negative unless mentioned in the HPI. PAST MEDICAL HISTORY: Please see the HPI. PAST SURGICAL HISTORY: Status post pacemaker; hysterectomy; right shoulder repair in 2012; tonsillectomy; and lumpectomy, left-sided. SOCIAL HISTORY: Drinks socially. Denies any drug use. She is a former smoker. Lives independently at . PSYCHIATRIC HISTORY: She has a history of anxiety and depression. MEDICATIONS: Per the ER system, these still need to be verified; 1. Effexor 75 mg p.o. b.i.d. 2. Prilosec 20 mg p.o. once a day. 3. Osteo Bi-Flex 250 mg/200 mg one tablet p.o. b.i.d. 4. Benadryl 25 mg p.o. once in the evening. 5. Centrum Silver once per day. 6. Calcium 600 once daily. 7. Zofran ODT 4 mg one tablet as needed. 8. Transderm-Scop patch 1.5 mg every 72 hours as needed. PHYSICAL EXAMINATION: VITAL SIGNS: Blood pressure 122/53, pulse is 65, respiratory rate is 16, temperature is 98.1, and pO2 sats are 100% on room air. CONSTITUTIONAL: The patient appears ill, but is alert and oriented to person, place, and time. HEENT: Head is atraumatic and normocephalic. Eyes, pupils are equally round and reactive to light. Extraocular muscles are intact. ENT; mouth exam is normal. Mucous membranes are moist. NECK: Normal range of motion. Trachea is midline. RESPIRATORY/CHEST: Chest movement is symmetrical. Chest expansion is equal. CARDIOVASCULAR: Regular rate and rhythm. Heart sounds are normal. There is a pacemaker in the left upper chest. ABDOMEN: Female. Nontender. There is some mild distention noted. There is no tenderness. There are no peritoneal signs. BACK: Normal range of motion. No CVA tenderness. EXTREMITIES: Upper extremities; normal inspection, normal range of motion, radial pulses are equal. Lower extremities; normal inspection, normal range of motion, pedal pulses are equal. NEUROLOGIC: The patient is oriented to person, place, and time. Speech is normal. SKIN: Warm, dry, pale, is diaphoretic. PSYCHIATRIC: The patient is confused. DIAGNOSTIC STUDIES: EKG in the emergency room shows beats per minute 78, normal sinus rhythm with premature atrial complexes. PLAN AND ASSESSMENT: The patient will be placed on the telemetry unit. We will trend troponins. 1. Dehydration with hypokalemia and hyponatremia. Normal saline with 40 mEq at 75 mL per hour. We will recheck her electrolytes in the morning. 2. Nausea, vomiting, and diarrhea. Zofran as needed. 3. History of some diastolic dysfunction. The last echocardiogram was done in November of 2017. Overall, left ventricular function was moderately depressed, ejection fraction was at 35% to 40%. The patient does not appear overloaded. We will continue to monitor and order to repeat echo as clinically indicated during this visit. 4. Generalized weakness. We will ask PT/OT to evaluate. Family has requested inpatient rehab screening, which we have ordered. 5. The patient's code status is DNAR. This was verified with the son at the bedside. They do have position of an out of hospital DNR. Son and daughter are surrogate decision makers. 6. Gastrointestinal and deep venous thrombosis prophylaxis have been started. 7. Case was dissected with Dr. Montero, who agrees. 8. Thrombocytopenia. We will recheck CBC in the morning. 9. Hospital course depending on clinical findings. Job ID: [id number]
[2019-01-10] MEDS ORDERED: ALPRAZolam 0.5 MG TAB PO PRN (13:02)
--- NOTE | 2019-01-10 13:37 | PDOC.HOSPP ---
- Subjective Encounter Date: 01/10/19 Encounter Time: 13:30 Subjective: f/u for general weakness and confusion. Family stating intermittent confusion over the last 2-3 days with weakness and decreased activity level. Usually able to manage all ADL's. Nursing reports fever up to 102.5F today. - Objective Vital Signs & Weight: Vital Signs (12 hours) Temp Pulse Pulse Pulse Resp BP BP 01/10/19 12:39 98.7 F 01/10/19 11:21 102.5 F H 87 24 H 01/10/19 09:20 83 84 123/64 134/76 01/10/19 07:06 98.1 F 80 22 H 01/10/19 04:00 97.4 F L 71 16 BP Pulse Ox 01/10/19 12:39 01/10/19 11:21 155/73 H 94 L 01/10/19 09:20 01/10/19 07:06 135/65 95 01/10/19 04:00 131/62 97 Weight Weight 157 lb 11.2 oz I&O: 01/09/19 01/10/19 01/11/19 06:59 06:59 06:59 Intake Total 1860 Output Total 100 Balance 1760 Result Diagrams: 01/10/19 01:48 01/10/19 01:48 Additional Labs: Microbiology 01/09/19 11:18 Nasal swab Influenza Types A,B Direct EIA - Final Laboratory Tests 01/09/19 01/09/19 01/10/19 11:00 11:00 01:48 Neutrophils % 88.5 H Neutrophils % (Manual) Band Neuts % (Manual) Sodium 128 L Potassium 3.4 L Creatinine 0.85 AST 88 H 104 H ALT 38 48 Alkaline Phosphatase 74 72 01/10/19 01:48 Neutrophils % Neutrophils % (Manual) 52 Band Neuts % (Manual) 40 H Sodium Potassium Creatinine AST ALT Alkaline Phosphatase EKG Reviewed by me: Yes (Tele - paced in 70's) Hospitalist ROS - Medication Medications: Active Medications Generic Name Dose Route Start Last Admin Trade Name Freq PRN Reason Stop Dose Admin Acetaminophen 650 mg 01/09/19 15:19 01/10/19 11:27 Tylenol PO 650 mg Q4H PRN Administration Headache/Fever/Mild Pain (1-3) - Exam General Appearance: NAD, awake alert Eye: PERRL, anicteric sclera ENT: normocephalic atraumatic, no oropharyngeal lesions Neck: supple, symmetric, no JVD, no thyromegaly, no lymphadenopathy Heart: RRR, no gallops, no rubs, normal peripheral pulses Respiratory: CTAB, no wheezes, no rales, no ronchi, normal chest expansion Gastrointestinal: soft, non-tender, non-distended, normal bowel sounds, no palpable masses Extremities: no cyanosis, no clubbing, no edema Skin: normal turgor, no lesions Neurological: cranial nerve grossly intact, no new deficit Musculoskeletal: normal tone, generalized weakness Psychiatric: A&O x 3 Hosp A/P (1) UTI (urinary tract infection) Status: Acute Qualifiers: Urinary tract infection type: acute cystitis Plan: Start Rocephin 2gm IV daily, await final Ucx results, IV NS @ 100ml/h (2) Acute metabolic encephalopathy Code(s): G93.41 - METABOLIC ENCEPHALOPATHY Status: Acute Plan: Intermittent secondary to fever and #1, supportive mgmt, tx underlying etiology (3) Hyponatremia Code(s): E87.1 - HYPO-OSMOLALITY AND HYPONATREMIA Status: Acute Plan: Likely due to volume depletion and poor po intake, serial monitoring, IVF NS (4) Hypokalemia Code(s): E87.6 - HYPOKALEMIA Status: Acute Plan: KCL supplementation, serial K+ monitoring (5) Physical deconditioning Code(s): R53.81 - OTHER MALAISE Status: Acute Plan: Multifactorial, continue tx as outlined above, PT evaluation for functional assessment - Plan plan discussed w/ family, continue antibiotics, PT/OT, social insurance adviser, out of bed/ambulate, DVT proph w/SCDs Stable currently Start IVF's Start Rocephin 2gm IV daily PT evaluation for functional assessment Monitor po intake AM lab: CMP, CBC Convert to inpt status
[2019-01-10] MEDS: cefTRIAXone\\ROCEPHIN 2 GM in Sodium Chloride 0.9% 100 ML IVPB SCH (13:52)
[2019-01-10] MEDS ORDERED: Potassium Chloride 20 MEQ TAB PO SCH (14:45)
[2019-01-10] MEDS ORDERED: Sodium Chloride 0.9% 1,000 ML IV SCH (14:45)
[2019-01-10] MEDS: Potassium Chloride 20 MEQ TAB PO SCH (17:39)
[2019-01-10] MEDS: Venlafaxine HCl XR 75 MG CAP PO SCH (20:28)
[2019-01-10] MEDS: Montelukast Sodium 10 mg Tablet PO SCH (20:28)
[2019-01-10] MEDS: Carvedilol 25 MG TAB PO SCH (20:28)
[2019-01-10] MEDS: Multivitamin W/ Minerals 1 TAB PO SCH (20:28)
[2019-01-10] MEDS ORDERED: D3 PO SCH (21:00)
[2019-01-10] MEDS ORDERED: GLUCOSAMINE PO SCH (21:00)
[2019-01-10] MEDS ORDERED: BOSWELLIA SERRA T PO SCH (21:00)
--- NOTE | 2019-01-10 23:27 | RAD ---
XR Chest 1 View HISTORY: Cough and wheezing. COMPARISON: 12/06/2017 study. FINDINGS: Heart size is borderline with a pacemaker in place. Mild chronic lung changes are seen. The bones appear demineralized. IMPRESSION: No active intrathoracic disease.
[2019-01-11] MEDS: Acetaminophen 325 MG TAB PO PRN ×2 (04:32→11:57)
[2019-01-11 06:49] LABS: ALT (SGPT) 38 U/L (8-55); AST (SGOT) 85 U/L (5-34); Albumin 2.9 g/dL (3.4-4.8); Alkaline Phosphatase 74 U/L (40-110); Anion Gap 14 mmol/L (10-20); BUN (Urea Nitrogen) 18 mg/dL (9.8-20.1); Bilirubin, Total 0.4 mg/dL (0.2-1.2); Calc. Creatinine Clearance 63 mL/min (70-130); Calcium 7.4 mg/dL (7.8-10.44); Carbon Dioxide 15 mmol/L (23-31); Chloride 100 mmol/L (98-107); Estimated GFR-MDRD 73; Globulin 2.3 g/dL (2.4-3.5); Glucose 67 mg/dL (83-110); Protein, Total 5.2 g/dL (6.0-8.3); Sodium 125 mmol/L (136-145)
[2019-01-11 07:48] LABS: Band 39 % (5-11); Hemoglobin 12.6 g/dL (12.0-16.0); Lymphocytes 5 % (21-51); MDiff Complete? YES; Mean Corpuscular HGB CONC 35.3 g/dL (32.0-36.0); Mean Corpuscular Hemoglobin 30.6 pg (27.0-31.0); Mean Corpuscular Volume 86.9 fL (78.0-98.0); Mean Platelet Volume 11.1 fL (7.4-10.4); Monocytes 4 % (0-10); Neutrophil 52 % (42-75); Platelet Count 89 thou/uL (130-400); RBC Distribution Width 12.5 % (11.5-14.5); Red Blood Cell (RBC) Count 4.13 mill/uL (4.20-5.40); White Blood Cell (WBC) Count 4.6 thou/uL (4.8-10.8)
[2019-01-11] MEDS: Calcium Carbonate + Vit D 1 TAB PO SCH (08:56)
[2019-01-11] MEDS: Potassium Chloride 20 MEQ TAB PO SCH (08:56)
[2019-01-11] MEDS: Carvedilol 25 MG TAB PO SCH ×2 (08:56→21:43)
[2019-01-11] MEDS: Venlafaxine HCl XR 75 MG CAP PO SCH ×2 (08:56→21:45)
[2019-01-11] MEDS: Famotidine 20 MG TAB PO SCH (08:57)
[2019-01-11] MEDS: Bupropion 150 MG XL TAB PO SCH (08:57)
[2019-01-11] MEDS: Aspirin Chewable 81 MG TAB PO SCH (08:57)
--- NOTE | 2019-01-11 13:30 | PDOC.HOSPP ---
- Subjective Encounter Date: 01/11/19 Encounter Time: 13:20 Subjective: f/u for UTI, fever and AMS currently receiving Rocephin. States still feeling weak. Some confusion per family report improved this am. - Objective Vital Signs & Weight: Vital Signs (12 hours) Temp Pulse Resp BP Pulse Ox 01/11/19 11:48 98.0 F 77 16 145/75 H 95 01/11/19 08:56 100 01/11/19 07:40 98.8 F 80 20 165/70 H 100 01/11/19 04:37 98.5 F 01/11/19 04:16 101.4 F H 77 22 H 155/70 H 94 L Weight Admit Weight 160 lb 8 oz Weight 161 lb 8 oz I&O: 01/10/19 01/11/19 01/12/19 06:59 06:59 06:59 Intake Total 1860 1530 Output Total 100 450 Balance 1760 1080 Result Diagrams: 01/11/19 05:46 01/11/19 05:46 Additional Labs: Microbiology 01/09/19 11:18 Nasal swab Influenza Types A,B Direct EIA - Final Laboratory Tests 01/09/19 01/09/19 01/10/19 11:00 11:00 01:48 Neutrophils % 88.5 H Neutrophils % (Manual) Band Neuts % (Manual) Sodium 128 L Potassium 3.4 L Creatinine 0.85 AST 88 H 104 H ALT 38 48 Alkaline Phosphatase 74 72 01/10/19 01:48 Neutrophils % Neutrophils % (Manual) 52 Band Neuts % (Manual) 40 H Sodium Potassium Creatinine AST ALT Alkaline Phosphatase Radiology Reviewed by me: Yes (PCXR - no acute process) EKG Reviewed by me: Yes (Tele - SR) Hospitalist ROS - Medication Medications: Active Medications Generic Name Dose Route Start Last Admin Trade Name Freq PRN Reason Stop Dose Admin Acetaminophen 650 mg 01/09/19 15:19 01/11/19 11:57 Tylenol PO 650 mg Q4H PRN Administration Headache/Fever/Mild Pain (1-3) Albuterol/Ipratropium 3 ml 01/10/19 22:37 01/10/19 23:03 Duoneb NEB 3 ml Q6H PRN Administration SOB &/or Wheezing Alprazolam 0.5 mg 01/10/19 13:02 01/10/19 20:29 Xanax PO 0.5 mg BID PRN Administration Anxiety Aspirin 81 mg 01/11/19 09:00 01/11/19 08:57 Aspirin Chewable PO 81 mg DAILY RIANNA Administration Bupropion HCl 150 mg 01/11/19 09:00 01/11/19 08:57 Wellbutrin Xl PO 150 mg QAM RIANNA Administration Calcium/Vitamin D 1 tab 01/11/19 09:00 01/11/19 08:56 Caltrate 600 + Vit D PO 1 tab DAILY RIANNA Administration Carvedilol 25 mg 01/10/19 21:00 01/11/19 08:56 Coreg PO 25 mg BID RIANNA Administration Famotidine 20 mg 01/11/19 09:00 01/11/19 08:57 Pepcid PO 20 mg DAILY RIANNA Administration Ceftriaxone Sodium 2 gm/ 100 mls @ 200 mls/hr 01/10/19 14:00 01/10/19 13:52 Sodium Chloride IVPB 100 mls Q24HR RIANNA Administration Iron/Minerals/Multivitamins 1 tab 01/10/19 21:00 01/10/19 20:28 Theragran M PO 1 tab HS RIANNA Administration Mirabegron 50 mg 01/11/19 09:00 01/11/19 08:56 Myrbetriq Er PO 50 mg QAM RIANNA Administration Montelukast Sodium 10 mg 01/10/19 21:00 01/10/19 20:28 Singulair PO 10 mg HS RIANNA Administration Potassium Chloride 40 meq 01/10/19 17:00 01/11/19 08:56 K-Dur PO 40 meq BID-WM RIANNA Administration Sodium Chloride 10 ml 01/09/19 15:19 01/10/19 20:29 Flush - Normal Saline IVF 10 ml PRN PRN Administration Saline Flush Venlafaxine HCl 75 mg 01/10/19 21:00 01/11/19 08:56 Effexor Xr PO 75 mg BID RIANNA Administration - Exam General Appearance: NAD, awake alert Eye: PERRL, anicteric sclera ENT: normocephalic atraumatic, no oropharyngeal lesions Neck: supple, symmetric, no JVD, no thyromegaly, no lymphadenopathy Heart: RRR, no gallops, no rubs, normal peripheral pulses Respiratory: no wheezes, no rales, normal chest expansion Respiratory - other findings: diminished in bases Gastrointestinal: soft, non-tender, non-distended, normal bowel sounds, no palpable masses Extremities: no cyanosis, no clubbing, no edema Skin: normal turgor, no lesions Neurological: cranial nerve grossly intact, no new deficit Musculoskeletal: normal tone, generalized weakness Psychiatric: oriented to person, oriented to place Hosp A/P (1) UTI (urinary tract infection) Status: Acute Qualifiers: Urinary tract infection type: acute cystitis Plan: Suspected but Ucx pending, continue Rocephin IV (2) Acute metabolic encephalopathy Code(s): G93.41 - METABOLIC ENCEPHALOPATHY Status: Acute Plan: Likely due to infectious process, see #1 above, reorientation techniques, family at bedside (3) Hyponatremia Code(s): E87.1 - HYPO-OSMOLALITY AND HYPONATREMIA Status: Acute Plan: Persistent, regular diet, serial Na+ (4) Hypokalemia Code(s): E87.6 - HYPOKALEMIA Status: Acute Plan: Improved (5) Physical deconditioning Code(s): R53.81 - OTHER MALAISE Status: Acute Plan: PT/OT for functional assessment, mobilization - Plan plan discussed w/ family, continue antibiotics, PT/OT, social media strategist, out of bed/ambulate Stable currently Start IVF's continue Rocephin 2gm IV daily Add Vancomycin 1gm IV BID PT evaluation for functional assessment Monitor po intake Hold Xanax AM lab: CMP, CBC Convert to inpt status
[2019-01-11] MEDS: cefTRIAXone\\ROCEPHIN 2 GM in Sodium Chloride 0.9% 100 ML IVPB SCH (13:53)
[2019-01-11] MEDS ORDERED: Vancomycin HCl 1 GM in Sodium Chloride 0.9% 250 ML 250 ML IVPB SCH (14:00)
[2019-01-11] MEDS: Vancomycin HCl 1 GM in Premix Bag 1 BAG IVPB SCH (15:01)
[2019-01-11] MEDS: Montelukast Sodium 10 mg Tablet PO SCH (21:44)
[2019-01-11] MEDS: Multivitamin W/ Minerals 1 TAB PO SCH (21:45)
[2019-01-12] MEDS: Vancomycin HCl 1 GM in Premix Bag 1 BAG IVPB SCH ×2 (02:18→16:30)
[2019-01-12 05:51] LABS: #Lymphocytes 0.4 thou/uL (1.20-3.40); #Monocytes 0.1 thou/uL (0.11-0.59); #Neutrophils 5.7 thou/uL (1.40-6.50); %Basophils 0.4 % (0.0-1.0); %Eosinophils 0.3 % (0.0-10.0); %Lymphocytes 6.9 % (21.0-51.0); %Monocytes 2.2 % (0.0-10.0); %Neutrophils 90.3 % (42.0-75.0); Mean Corpuscular HGB CONC 35.3 g/dL (32.0-36.0); Mean Corpuscular Volume 87.6 fL (78.0-98.0); Mean Platelet Volume 11.3 fL (7.4-10.4); Platelet Count 104 thou/uL (130-400); RBC Distribution Width 12.6 % (11.5-14.5); White Blood Cell (WBC) Count 6.3 thou/uL (4.8-10.8)
[2019-01-12 06:46] LABS: ALT (SGPT) 33 U/L (8-55); AST (SGOT) 69 U/L (5-34); Albumin 2.9 g/dL (3.4-4.8); Alkaline Phosphatase 72 U/L (40-110); Anion Gap 12 mmol/L (10-20); BUN (Urea Nitrogen) 16 mg/dL (9.8-20.1); Bilirubin, Total 0.4 mg/dL (0.2-1.2); Calc. Creatinine Clearance 65 mL/min (70-130); Calcium 7.7 mg/dL (7.8-10.44); Carbon Dioxide 19 mmol/L (23-31); Chloride 97 mmol/L (98-107); Estimated GFR-MDRD 75; Glucose 76 mg/dL (83-110); Potassium 3.7 mmol/L (3.5-5.1); Protein, Total 4.9 g/dL (6.0-8.3); Sodium 124 mmol/L (136-145)
[2019-01-12] MEDS: Aspirin Chewable 81 MG TAB PO SCH (09:11)
[2019-01-12] MEDS: Calcium Carbonate + Vit D 1 TAB PO SCH (09:11)
[2019-01-12] MEDS: Bupropion 150 MG XL TAB PO SCH (09:11)
[2019-01-12] MEDS: Potassium Chloride 20 MEQ TAB PO SCH (09:12)
[2019-01-12] MEDS: Famotidine 20 MG TAB PO SCH (09:12)
[2019-01-12] MEDS: Carvedilol 25 MG TAB PO SCH ×2 (09:12→21:09)
[2019-01-12] MEDS: Venlafaxine HCl XR 75 MG CAP PO SCH ×2 (09:13→21:09)
[2019-01-12] MEDS ORDERED: Furosemide 20 MG/2 ML VIAL SLOW IVP SCH (09:15)
[2019-01-12] MEDS: Acetaminophen 325 MG TAB PO PRN (09:56)
[2019-01-12] MEDS ORDERED: Conivaptan 20 MG in Premix Bag 1 BAG IVPB SCH (14:15)
[2019-01-12] MEDS: cefTRIAXone\\ROCEPHIN 2 GM in Sodium Chloride 0.9% 100 ML IVPB SCH (14:29)
--- NOTE | 2019-01-12 15:47 | PDOC.HOSPP ---
- Subjective Encounter Date: 01/12/19 Encounter Time: 15:30 Subjective: f/u for suspected UTI, hyponatremia and delirium. Received Lasix IV x 1 dose today with plans for Vaprisol per Nephrology. Some intermittent confusion. Walked short distance with PT. - Objective Vital Signs & Weight: Vital Signs (12 hours) Temp Pulse Resp BP Pulse Ox 01/12/19 12:05 97.7 F 66 18 139/74 96 01/12/19 08:05 98 F 87 18 161/84 H 96 01/12/19 03:39 98.9 F 84 18 148/77 H 97 Weight Admit Weight 160 lb 8 oz Weight 162 lb 9.6 oz I&O: 01/11/19 01/12/19 01/13/19 06:59 06:59 06:59 Intake Total 1530 1050 Output Total 450 800 Balance 1080 250 Result Diagrams: 01/12/19 04:48 01/12/19 05:54 Additional Labs: Microbiology 01/09/19 11:18 Nasal swab Influenza Types A,B Direct EIA - Final 01/10/19 01:48 Venous blood - Right Hand Blood Culture - Preliminary NO GROWTH AT 48 HOURS 01/10/19 01:48 Venous blood - Left Arm Blood Culture - Preliminary NO GROWTH AT 48 HOURS Laboratory Tests 01/09/19 01/09/19 01/10/19 11:00 11:00 01:48 Plt Count 83 L Neutrophils % 88.5 H Neutrophils % (Manual) Band Neuts % (Manual) Sodium 128 L 129 L Potassium 3.4 L 3.2 L Carbon Dioxide 19 L Creatinine 0.85 AST 88 H 104 H ALT 38 48 Alkaline Phosphatase 74 72 01/10/19 01/11/19 01/11/19 01:48 05:46 05:46 Plt Count 78 L 89 L Neutrophils % Neutrophils % (Manual) 52 Band Neuts % (Manual) 40 H Sodium 125 L Potassium 4.0 Carbon Dioxide 15 L Creatinine AST 85 H ALT Alkaline Phosphatase 01/12/19 05:54 Plt Count Neutrophils % Neutrophils % (Manual) Band Neuts % (Manual) Sodium Potassium Carbon Dioxide Creatinine AST 69 H ALT Alkaline Phosphatase EKG Reviewed by me: Yes (Tele - SR) Hospitalist ROS - Medication Medications: Active Medications Generic Name Dose Route Start Last Admin Trade Name Freq PRN Reason Stop Dose Admin Acetaminophen 650 mg 01/09/19 15:19 01/12/19 09:56 Tylenol PO 650 mg Q4H PRN Administration Headache/Fever/Mild Pain (1-3) Albuterol/Ipratropium 3 ml 01/10/19 22:37 01/11/19 14:04 Duoneb NEB 3 ml Q6H PRN Administration SOB &/or Wheezing Alprazolam 0.5 mg 01/10/19 13:02 01/10/19 20:29 Xanax PO 0.5 mg BID PRN Administration Anxiety Aspirin 81 mg 01/11/19 09:00 01/12/19 09:11 Aspirin Chewable PO 81 mg DAILY RIANNA Administration Bupropion HCl 150 mg 01/11/19 09:00 01/12/19 09:11 Wellbutrin Xl PO 150 mg QAM RIANNA Administration Calcium/Vitamin D 1 tab 01/11/19 09:00 01/12/19 09:11 Caltrate 600 + Vit D PO 1 tab DAILY RIANNA Administration Carvedilol 25 mg 01/10/19 21:00 01/12/19 09:12 Coreg PO 25 mg BID RIANNA Administration Famotidine 20 mg 01/11/19 09:00 01/12/19 09:12 Pepcid PO 20 mg DAILY RIANNA Administration Ceftriaxone Sodium 2 gm/ 100 mls @ 200 mls/hr 01/10/19 14:00 01/12/19 14:29 Sodium Chloride IVPB 100 mls Q24HR RIANNA Administration Vancomycin HCl 1 gm/ Device 200 mls @ 200 mls/hr 01/11/19 14:00 01/12/19 02: 18 IVPB 200 mls 0200,1400 RIANNA Administration Iron/Minerals/Multivitamins 1 tab 01/10/19 21:00 01/11/19 21:45 Theragran M PO 1 tab HS RIANNA Administration Mirabegron 50 mg 01/11/19 09:00 01/12/19 09:13 Myrbetriq Er PO 50 mg QAM RIANNA Administration Montelukast Sodium 10 mg 01/10/19 21:00 01/11/19 21:44 Singulair PO 10 mg HS RIANNA Administration Potassium Chloride 40 meq 01/12/19 09:00 01/12/19 09:12 K-Dur PO 40 meq DAILY RIANNA Administration Sodium Chloride 10 ml 01/09/19 15:19 09/28/19 20:29 Flush - Normal Saline IVF 10 ml PRN PRN Administration Saline Flush Venlafaxine HCl 75 mg 01/10/19 21:00 01/12/19 09:13 Effexor Xr PO 75 mg BID RIANNA Administration - Exam General Appearance: NAD, awake alert Eye: PERRL, anicteric sclera ENT: normocephalic atraumatic, no oropharyngeal lesions Neck: supple, symmetric, no JVD, no thyromegaly, no lymphadenopathy Heart: RRR, no murmur, no gallops, no rubs, normal peripheral pulses Respiratory: CTAB, no wheezes, no rales, no ronchi, normal chest expansion Gastrointestinal: soft, non-tender, non-distended, normal bowel sounds Extremities: no cyanosis, no clubbing, no edema Skin: normal turgor, no lesions Neurological: cranial nerve grossly intact, no new deficit Musculoskeletal: normal tone, generalized weakness Psychiatric: oriented to person, oriented to place Hosp A/P (1) UTI (urinary tract infection) Status: Acute Qualifiers: Urinary tract infection type: acute cystitis Plan: Continue Rocephin/Vancomycin, no Ucx available, continue to monitor clinically (2) Acute metabolic encephalopathy Code(s): G93.41 - METABOLIC ENCEPHALOPATHY Status: Acute Plan: Likely multifactorial including hyponatremia, UTI and delirium (3) Hyponatremia Code(s): E87.1 - HYPO-OSMOLALITY AND HYPONATREMIA Status: Acute Plan: 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, Lasix given IV x 1 dose, plan for Vaprisol, serial Na+ monitoring (4) Hypokalemia Code(s): E87.6 - HYPOKALEMIA Status: Acute Plan: Improved, continue K+ monitoring (5) Physical deconditioning Code(s): R53.81 - OTHER MALAISE Status: Acute Plan: PT for mobilization, may need to consider Rehab/SNF - Plan plan discussed w/ family, continue antibiotics, PT/OT, social worker assistant, out of bed/ambulate Stable currently Lasix 20mg IV x 1 dose continue Rocephin 2gm IV daily Vancomycin 1gm IV BID PT evaluation for functional assessment Monitor po intake Hold Xanax Nephrology consult appreciated AM lab: CMP, CBC Convert to inpt status
[2019-01-12] MEDS ORDERED: Tolvaptan 15 MG TAB PO SCH (16:30)
[2019-01-12 18:40] LABS: Sodium 127 mmol/L (136-145)
[2019-01-12] MEDS: diphenhydrAMINE 25 MG CAP PO PRN (21:08)
[2019-01-12] MEDS: Montelukast Sodium 10 mg Tablet PO SCH (21:09)
[2019-01-12] MEDS: Multivitamin W/ Minerals 1 TAB PO SCH (21:09)
[2019-01-13 01:22] LABS: Sodium 130 mmol/L (136-145)
--- NOTE | 2019-01-13 01:45 | CON ---
DATE OF CONSULTATION: REQUESTING PHYSICIAN: Dr. Justice. REASON FOR CONSULTATION: Worsening hyponatremia. IMPRESSION: Hyponatremia which is worsened and very concerning for possible syndrome of inappropriate antidiuretic hormone, however, cannot completely rule out other potential etiologies of hyponatremia including intravascular depletion. PLAN: Given the fact that this patient's sodium is worsening despite IV fluids, we will discourage the idea of using IV fluid in this patient and potentially suspect this to be SIADH. Therefore, we will order urine chemistry including injury sodium and urine osmolality and if this points in the direction of SIADH, we will treat accordingly. HISTORY OF PRESENT ILLNESS: History is that of an 83-year-old female patient from assisted living, who presented here with worsening weakness, very lethargic to the point of not been able to carry on with activities of daily living. The patient noted on presentation with a sodium of 129, received some IV fluid given the history of fever, nausea, vomiting and diarrhea, felt to be dehydrated. However, over the course of hospitalization, sodium level has drifted down, worse to about 124, necessitating renal consultation. PAST MEDICAL HISTORY: Significant for dyslipidemia, hypertension, breast cancer status post chemo and radiotherapy, skin melanoma, and also status post pacemaker. MEDICATIONS: Reviewed and as documented on DNART LIMITADA. SOCIAL HISTORY: No alcohol, remote tobacco use. FAMILY HISTORY: Not significantly related to presenting illness. PHYSICAL EXAMINATION: GENERAL: The patient was found not to be in any obvious distress, hemodynamically stable. Noted with the following vital signs. VITAL SIGNS: Afebrile, temperature 97.7, pulse 66, respiratory rate of 18, O2 saturations 96% with a blood pressure of 139/74. HEENT: Unremarkable. CARDIOVASCULAR: First and second heart sounds were heard. RESPIRATORY: Clear to auscultation. DIGESTIVE: Revealed a benign abdomen with positive bowel sounds. EXTREMITIES: No peripheral edema. SKIN: No new gross rash. LYMPHATICS: No peripheral lymphadenopathy. In summary an 83-year-old female patient who presented here with weakness, noted to be hyponatremic, which seems to be worsening, Thank you for this consultation. We will follow with you. Job ID: [id number]
[2019-01-13] MEDS: Vancomycin HCl 1 GM in Premix Bag 1 BAG IVPB SCH ×2 (01:52→15:36)
[2019-01-13 06:27] LABS: Sodium 128 mmol/L (136-145)
[2019-01-13] MEDS: Bupropion 150 MG XL TAB PO SCH (09:14)
[2019-01-13] MEDS: Aspirin Chewable 81 MG TAB PO SCH (09:14)
[2019-01-13] MEDS: Venlafaxine HCl XR 75 MG CAP PO SCH ×2 (09:15→20:49)
[2019-01-13] MEDS: Potassium Chloride 20 MEQ TAB PO SCH (09:15)
[2019-01-13] MEDS: Carvedilol 25 MG TAB PO SCH ×2 (09:15→20:49)
[2019-01-13] MEDS: Calcium Carbonate + Vit D 1 TAB PO SCH (09:15)
[2019-01-13] MEDS: Famotidine 20 MG TAB PO SCH (09:15)
[2019-01-13] MEDS: Tolvaptan 15 MG TAB PO SCH (09:15)
[2019-01-13] MEDS: Acetaminophen 325 MG TAB PO PRN ×2 (09:24→15:36)
[2019-01-13 12:21] LABS: Anion Gap 14 mmol/L (10-20); BUN (Urea Nitrogen) 19 mg/dL (9.8-20.1); Calc. Creatinine Clearance 54 mL/min (70-130); Calcium 8.2 mg/dL (7.8-10.44); Carbon Dioxide 19 mmol/L (23-31); Chloride 100 mmol/L (98-107); Estimated GFR-MDRD 61; Glucose 99 mg/dL (83-110); Potassium 4.1 mmol/L (3.5-5.1); Sodium 129 mmol/L (136-145)
[2019-01-13] MEDS: cefTRIAXone\\ROCEPHIN 2 GM in Sodium Chloride 0.9% 100 ML IVPB SCH (14:25)
[2019-01-13 18:28] LABS: Anion Gap 14 mmol/L (10-20); BUN (Urea Nitrogen) 21 mg/dL (9.8-20.1); Calc. Creatinine Clearance 51 mL/min (70-130); Carbon Dioxide 19 mmol/L (23-31); Chloride 103 mmol/L (98-107); Estimated GFR-MDRD 58; Glucose 113 mg/dL (83-110); Potassium 4.1 mmol/L (3.5-5.1); Sodium 132 mmol/L (136-145)
--- NOTE | 2019-01-13 19:46 | PDOC.HOSPP ---
- Subjective Encounter Date: 01/13/19 Encounter Time: 19:30 Subjective: f/u for delirium, hyponatremia and general weakness. Feels much better today, ate all her meals, ambulated in halls with PT. Mentally clearer. - Objective Vital Signs & Weight: Vital Signs (12 hours) Temp Pulse Pulse Pulse Resp BP BP 01/13/19 16:45 84 81 140/86 149/68 H 01/13/19 15:40 97.4 F L 78 18 01/13/19 11:35 97.8 F 78 18 01/13/19 08:11 01/13/19 07:50 98.6 F 98 20 BP Pulse Ox 01/13/19 16:45 01/13/19 15:40 130/67 96 01/13/19 11:35 115/66 93 L 01/13/19 08:11 95 01/13/19 07:50 137/84 92 L Weight Admit Weight 160 lb 8 oz Weight 160 lb I&O: 01/12/19 01/13/19 01/14/19 06:59 06:59 06:59 Intake Total 1050 750 850 Output Total 800 1250 300 Balance 250 -500 550 Result Diagrams: 01/12/19 04:48 01/13/19 18:03 Additional Labs: Microbiology 01/09/19 11:18 Nasal swab Influenza Types A,B Direct EIA - Final 01/10/19 01:48 Venous blood - Right Hand Blood Culture - Preliminary NO GROWTH AT 48 HOURS 01/10/19 01:48 Venous blood - Left Arm Blood Culture - Preliminary NO GROWTH AT 48 HOURS Laboratory Tests 01/09/19 01/09/19 01/10/19 11:00 11:00 01:48 Plt Count 83 L Neutrophils % 88.5 H Neutrophils % (Manual) Band Neuts % (Manual) Sodium 128 L 129 L Potassium 3.4 L 3.2 L Carbon Dioxide 19 L Creatinine 0.85 AST 88 H 104 H ALT 38 48 Alkaline Phosphatase 74 72 01/10/19 01/11/19 01/11/19 01:48 05:46 05:46 Plt Count 78 L 89 L Neutrophils % Neutrophils % (Manual) 52 Band Neuts % (Manual) 40 H Sodium 125 L Potassium 4.0 Carbon Dioxide 15 L Creatinine AST 85 H ALT Alkaline Phosphatase 01/12/19 01/12/19 01/13/19 05:54 18:19 01:08 Plt Count Neutrophils % Neutrophils % (Manual) Band Neuts % (Manual) Sodium 127 L 130 L Potassium Carbon Dioxide Creatinine AST 69 H ALT Alkaline Phosphatase 01/13/19 01/13/19 05:56 11:48 Plt Count Neutrophils % Neutrophils % (Manual) Band Neuts % (Manual) Sodium 128 L 129 L Potassium Carbon Dioxide Creatinine AST ALT Alkaline Phosphatase EKG Reviewed by me: Yes (Tele - SR) Hospitalist ROS - Medication Medications: Active Medications Generic Name Dose Route Start Last Admin Trade Name Freq PRN Reason Stop Dose Admin Acetaminophen 650 mg 01/09/19 15:19 01/13/19 15:36 Tylenol PO 650 mg Q4H PRN Administration Headache/Fever/Mild Pain (1-3) Albuterol/Ipratropium 3 ml 01/10/19 22:37 01/11/19 14:04 Duoneb NEB 3 ml Q6H PRN Administration SOB &/or Wheezing Alprazolam 0.5 mg 01/10/19 13:02 01/10/19 20:29 Xanax PO 0.5 mg BID PRN Administration Anxiety Aspirin 81 mg 01/11/19 09:00 01/13/19 09:14 Aspirin Chewable PO 81 mg DAILY RIANNA Administration Bupropion HCl 150 mg 01/11/19 09:00 01/13/19 09:14 Wellbutrin Xl PO 150 mg QAM RIANNA Administration Calcium/Vitamin D 1 tab 01/11/19 09:00 01/13/19 09:15 Caltrate 600 + Vit D PO 1 tab DAILY RIANNA Administration Carvedilol 25 mg 01/10/19 21:00 01/13/19 09:15 Coreg PO 25 mg BID RIANNA Administration Diphenhydramine HCl 25 mg 01/10/19 13:02 01/12/19 21:08 Benadryl PO 25 mg HS PRN Administration Insomnia Famotidine 20 mg 01/11/19 09:00 01/13/19 09:15 Pepcid PO 20 mg DAILY RIANNA Administration Ceftriaxone Sodium 2 gm/ 100 mls @ 200 mls/hr 01/10/19 14:00 01/13/19 14:25 Sodium Chloride IVPB 100 mls Q24HR RIANNA Administration Vancomycin HCl 1 gm/ Device 200 mls @ 200 mls/hr 01/11/19 14:00 01/13/19 15: 36 IVPB 200 mls 0200,1400 RIANNA Administration Iron/Minerals/Multivitamins 1 tab 01/10/19 21:00 01/12/19 21:09 Theragran M PO 1 tab HS RIANNA Administration Mirabegron 50 mg 01/11/19 09:00 01/13/19 09:15 Myrbetriq Er PO 50 mg QAM RIANNA Administration Montelukast Sodium 10 mg 01/10/19 21:00 01/12/19 21:09 Singulair PO 10 mg HS RIANNA Administration Potassium Chloride 40 meq 01/12/19 09:00 01/13/19 09:15 K-Dur PO 40 meq DAILY RIANNA Administration Sodium Chloride 10 ml 01/09/19 15:19 01/10/19 20:29 Flush - Normal Saline IVF 10 ml PRN PRN Administration Saline Flush Tolvaptan 15 mg 01/13/19 09:00 01/13/19 09:15 Samsca PO 15 mg DAILY RIANNA Administration Venlafaxine HCl 75 mg 01/10/19 21:00 01/13/19 09:15 Effexor Xr PO 75 mg BID RIANNA Administration - Exam General Appearance: NAD, awake alert Eye: PERRL, anicteric sclera ENT: normocephalic atraumatic, no oropharyngeal lesions Neck: supple, symmetric, no JVD, no thyromegaly, no lymphadenopathy Heart: RRR, no gallops, no rubs, normal peripheral pulses Respiratory: CTAB, no wheezes, normal chest expansion Respiratory - other findings: few rhonchi Gastrointestinal: soft, non-tender, non-distended, normal bowel sounds Extremities: no cyanosis, no clubbing, no edema Skin: normal turgor, no lesions Neurological: cranial nerve grossly intact, no new deficit Musculoskeletal: normal tone Psychiatric: A&O x 3 Hosp A/P (1) Hyponatremia Code(s): E87.1 - HYPO-OSMOLALITY AND HYPONATREMIA Status: Acute Plan: Improved with Samsca, continue serial monitoring, near baseline (2) UTI (urinary tract infection) Status: Acute Qualifiers: Urinary tract infection type: acute cystitis Plan: Continue Rocephin/Vancomycin, de-escalate in 24h (3) Acute metabolic encephalopathy Code(s): G93.41 - METABOLIC ENCEPHALOPATHY Status: Acute Plan: Improving, continue supportive mgmt (4) Hypokalemia Code(s): E87.6 - HYPOKALEMIA Status: Acute Plan: Resolved (5) Physical deconditioning Code(s): R53.81 - OTHER MALAISE Status: Acute Plan: PT for mobilization, likely will benefit with HH/PT - Plan continue antibiotics, PT/OT, family welfare social work professor, out of bed/ambulate, DVT proph w/ SCDs Stable currently continue Rocephin 2gm IV daily Vancomycin 1gm IV BID PT evaluation for functional assessment Monitor po intake Hold Xanax Nephrology consult appreciated AM lab: BMP Likely home 24h
--- NOTE | 2019-01-13 19:55 | PRG ---
DATE OF SERVICE: 01/13/2019 SUBJECTIVE: The patient is seen and examined, feeling better, noted with the following vital signs. OBJECTIVE: VITAL SIGNS: Afebrile, temperature 97.4, pulse 78, respiratory rate of 18, and O2 saturations 96% with a blood pressure 140/86. HEENT: Unremarkable. CARDIOVASCULAR SYSTEM: First and second heart sounds were heard. RESPIRATORY SYSTEM: Clear to auscultation. DIGESTIVE SYSTEM: Revealed a benign abdomen with positive bowel sounds. EXTREMITIES: No peripheral edema. SKIN: No new gross rash. LYMPHATICS: No peripheral lymphadenopathy. LABORATORY INVESTIGATIONS: Significant for sodium that went up to 132. 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 PLAN: We will continue with current measures and given the significant improvement. The patient possibly to be able to be discharged within the next 24 hours with very close outpatient Nephrology followup recommended. Job ID: [id number]
[2019-01-13] MEDS: diphenhydrAMINE 25 MG CAP PO PRN (20:49)
[2019-01-13] MEDS: Multivitamin W/ Minerals 1 TAB PO SCH (20:49)
[2019-01-13] MEDS: Montelukast Sodium 10 mg Tablet PO SCH (20:49)
[2019-01-14 00:24] LABS: Anion Gap 15 mmol/L (10-20); BUN (Urea Nitrogen) 23 mg/dL (9.8-20.1); Calc. Creatinine Clearance 48 mL/min (70-130); Carbon Dioxide 19 mmol/L (23-31); Chloride 104 mmol/L (98-107); Estimated GFR-MDRD 54; Glucose 112 mg/dL (83-110); Potassium 3.9 mmol/L (3.5-5.1); Sodium 134 mmol/L (136-145)
[2019-01-14] MEDS: Vancomycin HCl 1 GM in Premix Bag 1 BAG IVPB SCH (02:44)
[2019-01-14] MEDS: Venlafaxine HCl XR 75 MG CAP PO SCH ×2 (08:45→20:51)
[2019-01-14] MEDS: Carvedilol 25 MG TAB PO SCH ×2 (08:45→20:51)
[2019-01-14] MEDS: Famotidine 20 MG TAB PO SCH (08:45)
[2019-01-14] MEDS: Potassium Chloride 20 MEQ TAB PO SCH (08:45)
[2019-01-14] MEDS: Calcium Carbonate + Vit D 1 TAB PO SCH (08:45)
[2019-01-14] MEDS: Tolvaptan 15 MG TAB PO SCH (08:45)
[2019-01-14] MEDS: Bupropion 150 MG XL TAB PO SCH (08:45)
[2019-01-14] MEDS: Aspirin Chewable 81 MG TAB PO SCH (08:45)
--- NOTE | 2019-01-14 10:08 | PDOC.HOSPP ---
- Subjective Encounter Date: 01/14/19 Encounter Time: 10:00 Subjective: f/u for AMS, hyponatremia, general weakness and UTI. Overall improved but some persistent confusion. Tolerating po intake and overall quantity improved. Family wishing to pursue inpt rehab options. - Objective Vital Signs & Weight: Vital Signs (12 hours) Temp Pulse Resp BP Pulse Ox 01/14/19 08:42 98.1 F 95 20 127/73 94 L 01/14/19 02:52 98.1 F 92 18 151/77 H 95 Weight Admit Weight 160 lb 8 oz Weight 154 lb 4 oz I&O: 01/13/19 01/14/19 01/15/19 06:59 06:59 06:59 Intake Total 750 850 Output Total 1250 300 Balance -500 550 Result Diagrams: 01/12/19 04:48 01/14/19 00:00 Additional Labs: Microbiology 01/09/19 11:18 Nasal swab Influenza Types A,B Direct EIA - Final 01/10/19 01:48 Venous blood - Right Hand Blood Culture - Preliminary NO GROWTH AT 48 HOURS 01/10/19 01:48 Venous blood - Left Arm Blood Culture - Preliminary NO GROWTH AT 48 HOURS Laboratory Tests 01/09/19 01/09/19 01/10/19 11:00 11:00 01:48 Plt Count 83 L Neutrophils % 88.5 H Neutrophils % (Manual) Band Neuts % (Manual) Sodium 128 L 129 L Potassium 3.4 L 3.2 L Carbon Dioxide 19 L Creatinine 0.85 AST 88 H 104 H ALT 38 48 Alkaline Phosphatase 74 72 01/10/19 01/11/19 01/11/19 01:48 05:46 05:46 Plt Count 78 L 89 L Neutrophils % Neutrophils % (Manual) 52 Band Neuts % (Manual) 40 H Sodium 125 L Potassium 4.0 Carbon Dioxide 15 L Creatinine AST 85 H ALT Alkaline Phosphatase 01/12/19 01/12/19 01/13/19 05:54 18:19 01:08 Plt Count Neutrophils % Neutrophils % (Manual) Band Neuts % (Manual) Sodium 127 L 130 L Potassium Carbon Dioxide Creatinine AST 69 H ALT Alkaline Phosphatase 01/13/19 01/13/19 05:56 11:48 Plt Count Neutrophils % Neutrophils % (Manual) Band Neuts % (Manual) Sodium 128 L 129 L Potassium Carbon Dioxide Creatinine AST ALT Alkaline Phosphatase EKG Reviewed by me: Yes (Tele - SR) Hospitalist ROS - Medication Medications: Active Medications Generic Name Dose Route Start Last Admin Trade Name Freq PRN Reason Stop Dose Admin Acetaminophen 650 mg 01/09/19 15:19 01/13/19 15:36 Tylenol PO 650 mg Q4H PRN Administration Headache/Fever/Mild Pain (1-3) Albuterol/Ipratropium 3 ml 01/10/19 22:37 01/11/19 14:04 Duoneb NEB 3 ml Q6H PRN Administration SOB &/or Wheezing Alprazolam 0.5 mg 01/10/19 13:02 01/10/19 20:29 Xanax PO 0.5 mg BID PRN Administration Anxiety Aspirin 81 mg 01/11/19 09:00 01/14/19 08:45 Aspirin Chewable PO 81 mg DAILY RIANNA Administration Bupropion HCl 150 mg 01/11/19 09:00 01/14/19 08:45 Wellbutrin Xl PO 150 mg QAM RIANNA Administration Calcium/Vitamin D 1 tab 01/11/19 09:00 01/14/19 08:45 Caltrate 600 + Vit D PO 1 tab DAILY RIANNA Administration Carvedilol 25 mg 01/10/19 21:00 01/14/19 08:45 Coreg PO 25 mg BID RIANNA Administration Diphenhydramine HCl 25 mg 01/10/19 13:02 01/13/19 20:49 Benadryl PO 25 mg HS PRN Administration Insomnia Famotidine 20 mg 01/11/19 09:00 01/14/19 08:45 Pepcid PO 20 mg DAILY RIANNA Administration Ceftriaxone Sodium 2 gm/ 100 mls @ 200 mls/hr 01/10/19 14:00 01/13/19 14:25 Sodium Chloride IVPB 100 mls Q24HR RIANNA Administration Iron/Minerals/Multivitamins 1 tab 01/10/19 21:00 01/13/19 20:49 Theragran M PO 1 tab HS RIANNA Administration Mirabegron 50 mg 01/11/19 09:00 01/14/19 08:45 Myrbetriq Er PO 50 mg QAM RIANNA Administration Montelukast Sodium 10 mg 01/10/19 21:00 01/13/19 20:49 Singulair PO 10 mg HS RIANNA Administration Potassium Chloride 40 meq 01/12/19 09:00 01/14/19 08:45 K-Dur PO 40 meq DAILY RIANNA Administration Sodium Chloride 10 ml 01/09/19 15:19 01/10/19 20:29 Flush - Normal Saline IVF 10 ml PRN PRN Administration Saline Flush Tolvaptan 15 mg 01/13/19 09:00 01/14/19 08:45 Samsca PO 15 mg DAILY RIANNA Administration Venlafaxine HCl 75 mg 01/10/19 21:00 01/14/19 08:45 Effexor Xr PO 75 mg BID RIANNA Administration - Exam General Appearance: NAD, awake alert Eye: PERRL, anicteric sclera ENT: normocephalic atraumatic, no oropharyngeal lesions, moist mucosa Neck: supple, symmetric, no JVD, no thyromegaly, no lymphadenopathy Heart: RRR, no gallops, no rubs, normal peripheral pulses Respiratory: CTAB, no wheezes, no rales, no ronchi, normal chest expansion Gastrointestinal: soft, non-tender, non-distended, normal bowel sounds, no palpable masses Extremities: no cyanosis, no clubbing, no edema Skin: normal turgor, no lesions Neurological: cranial nerve grossly intact, no new deficit Musculoskeletal: generalized weakness Psychiatric: oriented to person, oriented to place Hosp A/P (1) Hyponatremia Code(s): E87.1 - HYPO-OSMOLALITY AND HYPONATREMIA Status: Acute Plan: Improving, d/c Samsca, serial Na+ monitoring, Regular diet (2) UTI (urinary tract infection) Status: Acute Qualifiers: Urinary tract infection type: acute cystitis Plan: Suspected, convert to Levaquin 500mg daily, d/c Rocephin/Vancomycin (3) Acute metabolic encephalopathy Code(s): G93.41 - METABOLIC ENCEPHALOPATHY Status: Acute Plan: Intermittent confusion, multifactorial, supportive mgmt, Family at bedside for re-orientation (4) Hypokalemia Code(s): E87.6 - HYPOKALEMIA Status: Acute Plan: Resolved (5) Physical deconditioning Code(s): R53.81 - OTHER MALAISE Status: Acute Plan: Rehab screening in progress - Plan plan discussed w/ family, continue antibiotics, PT/OT, child welfare social worker, out of bed/ambulate Stable currently D/C Rocephin D/C Vancomycin PT evaluation for functional assessment Monitor po intake Hold Xanax Nephrology consult appreciated AM lab: BMP Rehab screening pending
[2019-01-14 13:49] LABS: Vancomycin, Trough 24.2 ug/mL
[2019-01-14] MEDS: Acetaminophen 325 MG TAB PO PRN (14:56)
[2019-01-14] MEDS: cefTRIAXone\\ROCEPHIN 2 GM in Sodium Chloride 0.9% 100 ML IVPB SCH (15:34)
[2019-01-14] MEDS ORDERED: guaiFENesin/Dextromethorphan 10 ML UDCUP PO PRN (17:44)
[2019-01-14] MEDS ORDERED: Guaifenesin DM 100-10/5 ML UDCUP PO PRN (19:00)
[2019-01-14] MEDS: Montelukast Sodium 10 mg Tablet PO SCH (20:51)
[2019-01-14] MEDS: Multivitamin W/ Minerals 1 TAB PO SCH (20:51)
[2019-01-14] MEDS: diphenhydrAMINE 25 MG CAP PO PRN (20:51)
[2019-01-15 05:19] LABS: Anion Gap 13 mmol/L (10-20); BUN (Urea Nitrogen) 18 mg/dL (9.8-20.1); Calc. Creatinine Clearance 52 mL/min (70-130); Calcium 8.3 mg/dL (7.8-10.44); Carbon Dioxide 23 mmol/L (23-31); Chloride 108 mmol/L (98-107); Estimated GFR-MDRD 61; Glucose 102 mg/dL (83-110); Sodium 140 mmol/L (136-145)
--- NOTE | 2019-01-15 08:12 | PRG ---
DATE OF SERVICE: 01/14/2019 SUBJECTIVE: The patient is seen and examined with no new complaint, noted with the following vital signs. OBJECTIVE: VITAL SIGNS: Afebrile, temperature 98.6, pulse 84, respiratory rate 18, O2 saturation 98% with a blood pressure 157/70. HEENT: Unremarkable. CARDIOVASCULAR: First and second heart sounds were heard. RESPIRATORY: Clear to auscultation. DIGESTIVE: Revealed a benign abdomen. Positive bowel sounds. EXTREMITIES: No peripheral edema. SKIN: No new gross rash. LYMPHATICS: No peripheral lymphadenopathy. LABORATORY INVESTIGATIONS: Significant for sodium 134. 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 PLAN: 1. The patient seems to have responded very well with significant improvement in the sodium level. Therefore, we will continue with increased protein intake as the patient . 2. From the renal standpoint, close outpatient Nephrology followup. Job ID: [id number]
[2019-01-15] MEDS: Calcium Carbonate + Vit D 1 TAB PO SCH (08:59)
[2019-01-15] MEDS: Carvedilol 25 MG TAB PO SCH (08:59)
[2019-01-15] MEDS: Aspirin Chewable 81 MG TAB PO SCH (08:59)
[2019-01-15] MEDS: Venlafaxine HCl XR 75 MG CAP PO SCH (08:59)
[2019-01-15] MEDS: Bupropion 150 MG XL TAB PO SCH (08:59)
[2019-01-15] MEDS: Potassium Chloride 20 MEQ TAB PO SCH (08:59)
[2019-01-15] MEDS: Famotidine 20 MG TAB PO SCH (08:59)
[2019-01-15] MEDS: Acetaminophen 325 MG TAB PO PRN (09:02)
[2019-01-15] MEDS: Tolvaptan 15 MG TAB PO SCH (09:16)
[2019-01-15 12:26] VITALS: BP 144/70; TEMP 97.2
[2019-01-15] MEDS ORDERED: Aluminum & Magnesium Hydroxide 60 ML, diphenhydrAMINE 150 MG, Lidocaine 2% Viscous Solu... SSW PRN (13:59)
[2019-01-15 14:25] VITALS: BMI 24.8
--- NOTE | 2019-01-15 19:35 | DIS ---
DATE OF ADMISSION: 01/10/2019 DATE OF DISCHARGE: 01/15/2019 DISCHARGE DIAGNOSES: 1. Hyponatremia secondarily to syndrome of inappropriate antidiuretic hormone secretion, resolving. 2. Urinary tract infection, organism not identified. 3. Acute metabolic encephalopathy, multifactorial including #1 and #2. 4. Hypokalemia, resolved. 5. Physical deconditioning. CONSULTATIONS: Dr. Mariaa Pang with Nephrology Service. PERTINENT LABORATORY AND X-RAY FINDINGS: Sodium ranged between 124 to 140, potassium ranged between 3.2 to 4.1. AST ranged between 69 to 104. ALT ranged between 33 to 48. CBC showed a white blood cell count ranging between 4.4 to 6.3, hemoglobin 13, hematocrit 37, platelet count ranged between 78 to 104. Blood cultures x2 dated 01/10/2019, showed no growth at 5 days. Influenza A and B antigen dated 01/09/2019, negative. Portable chest x-ray dated 01/09/2019, showed no acute cardiopulmonary process. CT of the brain without contrast dated 01/09/2019, showed no acute intracranial process. Portable chest x-ray dated 01/10/2019, showed no acute cardiopulmonary process. CT angiogram of the aorta dated 01/09/2019, showed no evidence for aneurysm or dissection. HOSPITAL COURSE: The patient was initially admitted after presenting with generalized weakness with nausea, vomiting, and diarrhea. The patient underwent extensive evaluation including neuroimaging and metabolic screening. The patient was initially managed for dehydration with associated hypokalemia and hyponatremia. The patient received IV fluids as well as antiemetics and ruled out for systemic infection. The patient was treated for suspected urinary tract infection, however urine culture was not available and a dominant organism was not identified. The patient was treated for syndrome of inappropriate antidiuretic hormone with tolvaptan at the direction of the Nephrology Service. Serial sodium monitoring showed overall improving and stable values by the time of discharge. The patient was also noted with persistent general weakness and deemed an appropriate candidate for ongoing skilled care including supervised physical and occupational therapy. The patient has been approved for transfer to inpatient rehabilitation after discharge. The patient was also evaluated for intermittent confusion and delirium, likely multifactorial including metabolic processes. The patient had overall improved mental status function, however, was not felt to be appropriate to live independently, at which point, the rehabilitation option was explored. I have examined the patient at the time of discharge and discussed followup instructions. Family in agreement to pursue inpatient rehabilitation after discharge. DISCHARGE MEDICATIONS: 1. Xanax 0.5 mg p.o. b.i.d. p.r.n. 2. Bupropion XL 150 mg daily. 3. Calcium carbonate 600 mg p.o. daily. 4. Coreg 25 mg p.o. b.i.d. 5. Benadryl 25 mg p.o. at bedtime p.r.n. 6. Glucosamine 1 tablet p.o. b.i.d.. 7. Myrbetriq 50 mg p.o. q.a.m. 8. Singulair 10 mg p.o. q.a.m. 9. Multivitamin 1 tablet p.o. at bedtime. 10. Omeprazole 10 mg p.o. daily. 11. Effexor extended release 75 mg p.o. b.i.d. 12. Enteric-coated aspirin 81 mg p.o. daily. 13. Levaquin 500 mg p.o. daily x5 days. 14. Lisinopril 10 mg p.o. daily, resume on 01/17/2019. FOLLOWUP: The patient may follow up with her primary care provider, Dr. Will Hoff after discharge from inpatient rehabilitation. The patient may follow up with Dr. Mariaa Pang within 7 days of discharge. CONDITION ON DISCHARGE: Stable. ACTIVITY: Ad-avel. Rolling walker with standby/contact guard assistance with general fall risk precautions. DIET: Regular. CODE STATUS: Do not attempt resuscitation. DISPOSITION: Discharged to [place], [place] on 01/15/2019. TIME SPENT: Total time preparing and coordinating discharge is 35 minutes. Job ID: [id number]
--- NOTE | 2019-01-17 13:56 | EKG ---
Test Reason : Blood Pressure : / mmHG Vent. Rate : 078 BPM Atrial Rate : 078 BPM P-R Int : 204 ms QRS Dur : 118 ms QT Int : 402 ms P-R-T Axes : 054 011 074 degrees QTc Int : 458 ms Sinus rhythm with Premature atrial complexes Cannot rule out Anterior infarct , age undetermined Abnormal ECG Confirmed by MASSIEL LIVINGSTON DO ([id number]), department editor DARIUS CASTILLO ([id number]) on 01/17/2019 1:55:44 PM Referred By: Confirmed By:MASSIEL LIVINGSTON DO
== END 2019-01-15 14:26 | DRG 643 ==
LOC: ERS 10:42 → 2NO 17:02 → OBSVTOIN 01-10 13:36
PROVIDERS: ADMIT Internal Medicine; ATTEND Internal Medicine
DX: E22.2 Syndrome of inappropriate secretion of antidiuretic hormone (principal); G93.41 Metabolic encephalopathy; N30.00 Acute cystitis without hematuria; E78.5 Hyperlipidemia, unspecified; Z66 Do not resuscitate; I10 Essential (primary) hypertension; E86.0 Dehydration; E87.6 Hypokalemia; D69.6 Thrombocytopenia, unspecified; F41.9 Anxiety disorder, unspecified; Z85.3 Personal history of malignant neoplasm of breast; Z88.5 Allergy status to narcotic agent; Z79.899 Other long term (current) drug therapy; Z85.828 Personal history of other malignant neoplasm of skin; Z92.3 Personal history of irradiation; Z92.21 Personal history of antineoplastic chemotherapy; Z95.0 Presence of cardiac pacemaker; Z90.710 Acquired absence of both cervix and uterus; Z79.82 Long term (current) use of aspirin
CPT/HCPCS: 36415; 36416; 51701; 70450; 71045; 71275; 72191; 74175; 74177; 80048; 80053; 80202; 81001; 81003; 81015; 82553; 83605; 83690; 83935; 84295; 84300; 84484; 85025; 87804; 93005; 94640; 96360; A4353; J0696; J1940; J3370; J3480; J3490; J7620; Q0163; Q9966

== ENCOUNTER 2020-01-31 13:16 | Observation (INO) | payer MEDICARE, OTHER ==
[2020-01-31 13:48] LABS: #Basophils 0.1 thou/uL (0.0-0.2); #Eosinphils 0.5 thou/uL (0.0-0.7); #Monocytes 0.9 thou/uL (0.11-0.59); #Neutrophils 7.9 thou/uL (1.40-6.50); %Basophils 0.9 % (0.0-1.0); %Eosinophils 4.3 % (0.0-10.0); %Lymphocytes 17.8 % (21.0-51.0); %Monocytes 7.5 % (0.0-10.0); %Neutrophils 69.5 % (42.0-75.0); Hemoglobin 14.7 g/dL (12.0-16.0); Mean Corpuscular HGB CONC 35.1 g/dL (32.0-36.0); Mean Corpuscular Hemoglobin 32.2 pg (27.0-31.0); Mean Corpuscular Volume 91.9 fL (78.0-98.0); Mean Platelet Volume 8.7 fL (7.4-10.4); Platelet Count 277 thou/uL (130-400); RBC Distribution Width 11.7 % (11.5-14.5); Red Blood Cell (RBC) Count 4.56 mill/uL (4.20-5.40); White Blood Cell (WBC) Count 11.4 thou/uL (4.8-10.8)
--- NOTE | 2020-01-31 13:55 | RAD ---
Exam: Chest one view HISTORY:Pain Comparison: 01/10/2019 FINDINGS: Cardiac silhouette:Normal. Stable left-sided transvenous pacemaker Aorta: Atherosclerotic Pulmonary vessels: Normal Costophrenic angles: Clear LUNGS: No masses or consolidation. Lung parenchymal changes. Stable clips projecting over the left he mithorax. Pneumothorax: None Osseous abnormalities: Previous right rotator cuff repair. IMPRESSION: No acute cardiopulmonary process. Atherosclerosis.
[2020-01-31 14:09] LABS: ALT (SGPT) 10 U/L (8-55); AST (SGOT) 16 U/L (5-34); Albumin 4.3 g/dL (3.4-4.8); Alkaline Phosphatase 81 U/L (40-110); Anion Gap 14 mmol/L (10-20); BUN (Urea Nitrogen) 19 mg/dL (9.8-20.1); Bilirubin, Total 0.3 mg/dL (0.2-1.2); CK (CPK) 39 U/L (29-168); Calc. Creatinine Clearance 0 mL/min (70-130); Calcium 9.4 mg/dL (7.8-10.44); Carbon Dioxide 27 mmol/L (23-31); Chloride 102 mmol/L (98-107); Estimated GFR-MDRD 56; Globulin 2.9 g/dL (2.4-3.5); Glucose 96 mg/dL (83-110); Lipase 65 U/L (8-78); Potassium 4.6 mmol/L (3.5-5.1); Protein, Total 7.2 g/dL (6.0-8.3); Sodium 138 mmol/L (136-145)
[2020-01-31] MEDS ORDERED: Aspirin Chewable 81 MG TAB ONE (14:29)
--- NOTE | 2020-01-31 15:37 | PDOC.HHP ---
Hospitalist HPI - History of Present Illness Chest pain History of Present Illness: Ms. Guo is an 84-year-old female with a past medical history of hypertension, breast cancer in remission, melanoma in remission, anxiety, depression, hyponatremia, permanent pacemaker who presents to the emergency department for chest pain. Patient reports that over the past few weeks she visits has been experiencing chest pain that she describes as sharp and midline. Patient reports her pain will last for hours and then go away however has been constant over the past 2 days. She says just prior to coming to the emergency room her chest pain resolved. She denies any shortness of breath, dizziness, changes in vision, numbness/weakness during these episodes. No history of prior MIs. Patient does follow with Dr. Birmingham for permanent pacemaker which was placed due to bradycardia. Patient currently resting comfortably and denies chest pain, shortness of breath, palpitations. In emergency room initial vital signs 134/76, 83, 18, 97.9, 97% on room air. EKG shows paced rhythm with no ST changes. Chest x-ray with no acute abnormalities. Troponin less than 0.01, lipase 65, H/H 14.7/41.8. White blood cell count 11.4. Patient received 324 mg of aspirin in the ED. Hospitalist ROS - Review of Systems Constitutional: denies: fever, chills, sweats, weakness, malaise, other Eyes: denies: pain, vision change, conjunctivae inflammation, eyelid inflammation, redness, other ENT: denies: ear pain, ear discharge, nose pain, nose discharge, nose congestion, mouth pain, mouth swelling, throat pain, throat swelling, other Respiratory: denies: cough, dry, shortness of breath, hemoptysis, SOB with excertion, pleuritic pain, sputum, wheezing, other Cardiovascular: reports: chest pain. denies: palpitations, orthopnea, paroxysmal noc. dyspnea, edema, light headedness, other Gastrointestinal: reports: diarrhea. denies: nausea, vomiting, abdominal pain, constipation, melena, hematochezia, other Genitourinary: denies: dysuria, frequency, incontinence, hematuria, retention, other Musculoskeletal: denies: neck pain, shoulder pain, arm pain, back pain, hand pain, leg pain, foot pain, other Skin: denies: rash, lesions, fredis, bruising, other Neurological: denies: weakness, numbness, incoordination, change in speech, confusion, seizures, other - Medication Medications: Home medications include Venlafaxine 75 mg twice daily Prilosec 20 mg Osteo Bi-Flex Centrum Silver women's Calcium 600 Alprazolam 0.5 mg at nighttime Bupropion 150 mg Coreg 25 mg twice daily Lisinopril 20 mg Myrbetriq 50 mg Patient reports allergy to codeine. Reports that she becomes acutely agitated when taking this. 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 - Social History Smoking Status: Former smoker Tobacco Type: cigarettes Alcohol: reports: Occassional Drugs: reports: none Living Situation: Other ([facility] assisted living) Activity level: independent ambulation - Exam General Appearance: NAD, awake alert Eye: PERRL, anicteric sclera ENT: normocephalic atraumatic, no oropharyngeal lesions, moist mucosa Neck: supple, symmetric, no JVD, no thyromegaly, no lymphadenopathy, no carotid bruit Heart: RRR, no murmur, no gallops, no rubs, normal peripheral pulses Respiratory: CTAB, no wheezes, no rales, no ronchi, normal chest expansion, no tachypnea, normal percussion Gastrointestinal: soft, non-tender, non-distended, normal bowel sounds, no palpable masses, no hepatomegaly, no splenomegaly, no bruit Extremities: no cyanosis, no clubbing, no edema Skin: normal turgor, no lesions, no rashes Neurological: cranial nerve grossly intact, normal sensation to touch, no weakness, no focal deficits, no new deficit Musculoskeletal: normal tone, normal strength, no muscle wasting Psychiatric: normal affect, normal behavior, A&O x 3 Hospitalist Results - Labs Result Diagrams: 01/31/20 13:35 01/31/20 13:35 Lab results: WBC 11.4 thou/uL (4.8-10.8) H 01/31/20 13:35 Hgb 14.7 g/dL (12.0-16.0) 01/31/20 13:35 Hct 41.8 % (36.0-47.0) 01/31/20 13:35 MCV 91.9 fL (78.0-98.0) 01/31/20 13:35 Plt Count 277 thou/uL (130-400) 01/31/20 13:35 Neutrophils % 69.5 % (42.0-75.0) 01/31/20 13:35 Sodium 138 mmol/L (136-145) 01/31/20 13:35 Potassium 4.6 mmol/L (3.5-5.1) 01/31/20 13:35 Chloride 102 mmol/L (98-107) 01/31/20 13:35 Carbon Dioxide 27 mmol/L (23-31) 01/31/20 13:35 BUN 19 mg/dL (9.8-20.1) 01/31/20 13:35 Creatinine 0.94 mg/dL (0.6-1.1) 01/31/20 13:35 Glucose 96 mg/dL (83-110) 01/31/20 13:35 Calcium 9.4 mg/dL (7.8-10.44) 01/31/20 13:35 Total Bilirubin 0.3 mg/dL (0.2-1.2) 01/31/20 13:35 AST 16 U/L (5-34) 01/31/20 13:35 ALT 10 U/L (8-55) 01/31/20 13:35 Alkaline Phosphatase 81 U/L (40-110) 01/31/20 13:35 Creatine Kinase 39 U/L (29-168) 01/31/20 13:35 Troponin I Less than 0.010 ng/mL (< 0.028) 01/31/20 13:35 Serum Total Protein 7.2 g/dL (6.0-8.3) 01/31/20 13:35 Albumin 4.3 g/dL (3.4-4.8) 01/31/20 13:35 Lipase 65 U/L (8-78) 01/31/20 13:35 Hospitalist H&P A/P - Plan Plan: Chest pain 84-year-old female with past medical history of hypertension, remote breast cancer, PPM, who presents for atypical chest pain. Patient describes constant sharp pain to her sternum that has been ongoing for the past 3 weeks and will last for hours. Currently denies any chest pain, shortness of breath. EKG with no ischemic changes, paced rhythm. Initial troponin less than 0.01. Vital signs within normal limits. Last echocardiogram in 2018 showed ejection fraction of 35 to 40%. Last stress test on file from 2017, which showed no areas of reversible ischemia and an EF of 77%. Patient has requested to see Dr. Birmingham, will place consult. Telemetry monitoring overnight for ACS rule out. Plan Trend troponin Telemetry monitoring -Lipid panel in am, Mg, TSH Cardiology, Dr. Birmingham consult N.p.o. at midnight, consider stress test Systolic Heart Failure Hx of systolic heart failure with prior echo in 2018 showed EF of 35-40%. But appears dry on exam with no SOB, LE edema and clear lungs. CXR no acute changes. Plan -Repeat echocardiogram -Continue to monitor fluid status. Leukocytosis WBC 11.4. Pt afebrile, with RRR. Likely reactive, but will continue to monitor. Plan -Trend WBC, fever curve Hypertension Continue home medications lisinopril, Coreg. Depression and anxiety We will continue patient's home venlafaxine, alprazolam, bupropion. Overactive bladder We will continue home Myrbetriq DVT prophylaxis: SCDs Full code Case discussed with attending physician, Dr. Srinivasan.
[2020-01-31 17:32] VITALS: BMI 26.2
[2020-01-31 17:37] LABS: Troponin I Less than 0.010 ng/mL (< 0.028)
--- NOTE | 2020-01-31 19:14 | PDOC.EVN ---
Event Note - Event Note Event Note: pt evaluated and discussed with KRISTIN Colvin. She is 84 y/o female wtih central chest/upper abdominal pain that's been ongoing for weeks and constant for a few days. Pain resolved earlier. She denied any prior history, denies any association with food. Pt reports ongoing urine problems - frequent urination. VS reviewed Gen - awake, alert, responsive, NAD Lungs - ctab heart - normal s1/s2 without audible murmurs ext - no edema labs reviewed cxr - no acute process, it does demonstrate atherosclerosis Imp: Atypical chest pain - echo - NPO after midnight for Cards consult - pt requested Dr. Birmingham - continue aspirin - check lipid panel in AM HTN - continue home meds Elevated WBC count and urine sx -> check UA with reflex culture. Other medical conditions - resume home meds. dvt prophy - ambulatory gi prophy - not indicated, continue home PPI reviewed plan of care with patient, no questions at end of eval.
[2020-01-31] MEDS: ALPRAZolam 0.25 MG TAB PO SCH (19:52)
[2020-01-31] MEDS: Carvedilol 25 MG TAB PO SCH (19:52)
[2020-01-31 20:11] LABS: Troponin I Less than 0.010 ng/mL (< 0.028)
[2020-01-31] MEDS ORDERED: Amlodipine 5 MG TAB PO SCH (21:00)
[2020-01-31 21:03] LABS: Bacteria/HPF 3+ HPF (None Seen); Bilirubin Negative (Negative); Blood, Urine Negative (Negative); Clarity Clear (Clear); Glucose, Urine (Dipstick) Normal (Negative); Ketone, Urine Negative (Negative); Leukocyte 25 Leu/uL (Negative); Nitrite 2+ (Negative); Protein, Urine (Dipstick) Negative (Neg-Trace); RBC/HPF 0-3 HPF (0-3); Specific Gravity, Urine 1.018 (1.002-1.036); Squamous Epithelial 0-3 HPF (0-3); Urobilinogen Normal mg/dL (Less than 2); pH, Urine 5.5 (5.0-9.0)
[2020-01-31 21:04] LABS: Urine Culture Reflex Yes Yes
[2020-02-01 05:16] LABS: #Basophils 0.1 thou/uL (0.0-0.2); #Eosinphils 0.4 thou/uL (0.0-0.7); #Lymphocytes 2.2 thou/uL (1.20-3.40); #Monocytes 0.8 thou/uL (0.11-0.59); #Neutrophils 5.9 thou/uL (1.40-6.50); %Eosinophils 4.6 % (0.0-10.0); %Lymphocytes 23.6 % (21.0-51.0); %Monocytes 8.4 % (0.0-10.0); %Neutrophils 62.5 % (42.0-75.0); Hemoglobin 13.9 g/dL (12.0-16.0); Mean Corpuscular HGB CONC 33.6 g/dL (32.0-36.0); Mean Corpuscular Hemoglobin 31.1 pg (27.0-31.0); Mean Corpuscular Volume 92.4 fL (78.0-98.0); Mean Platelet Volume 8.4 fL (7.4-10.4); Platelet Count 269 thou/uL (130-400); RBC Distribution Width 11.8 % (11.5-14.5); Red Blood Cell (RBC) Count 4.48 mill/uL (4.20-5.40); White Blood Cell (WBC) Count 9.4 thou/uL (4.8-10.8)
[2020-02-01 05:40] LABS: Anion Gap 11 mmol/L (10-20); BUN (Urea Nitrogen) 16 mg/dL (9.8-20.1); Calc. Creatinine Clearance 54 mL/min (70-130); Calcium 8.7 mg/dL (7.8-10.44); Carbon Dioxide 26 mmol/L (23-31); Cardiac Risk 4.7 (Less than 4.5); Chloride 103 mmol/L (98-107); Cholesterol 247 mg/dl (< 200 Desired); Estimated GFR-MDRD 64; Glucose 96 mg/dL (83-110); HDL Cholesterol 53 mg/dL (>60 Neg Risk); LDL Cholesterol, Calculated 156 mg/dL; Potassium 4.3 mmol/L (3.5-5.1); Sodium 136 mmol/L (136-145); Triglycerides 188 mg/dL (Less than 150)
[2020-02-01] MEDS: ALPRAZolam 0.25 MG TAB PO SCH (08:37)
[2020-02-01] MEDS: Carvedilol 25 MG TAB PO SCH (08:50)
[2020-02-01] MEDS ORDERED: Lisinopril 20 MG TAB PO SCH (09:00)
[2020-02-01] MEDS ORDERED: Multivit, Therapeutic 1 TAB PO SCH (09:00)
[2020-02-01] MEDS ORDERED: Calcium Citrate 950 MG TAB PO SCH (09:00)
[2020-02-01] MEDS ORDERED: Venlafaxine HCl XR 75 MG CAP PO SCH (09:00)
[2020-02-01] MEDS ORDERED: Bupropion 150 MG XL TAB PO SCH (09:00)
[2020-02-01] MEDS ORDERED: ADENOSINE 60 MG/20 ML VIAL ONE (09:20)
--- NOTE | 2020-02-01 13:26 | PDOC.HOSPP ---
- Subjective Encounter Date: 02/01/20 Encounter Time: 10:00 Subjective: no current chest pain or palp feels better daughter at bedside - Objective Vital Signs & Weight: Vital Signs (12 hours) Temp Pulse Resp BP Pulse Ox 02/01/20 07:40 98.2 F 80 16 131/72 97 02/01/20 05:07 97.9 F 74 16 154/72 H 96 Weight Weight 157 lb 8 oz I&O: 01/31/20 02/01/20 02/02/20 06:59 06:59 06:59 Intake Total 240 Output Total 400 Balance -160 Result Diagrams: 02/01/20 04:59 02/01/20 04:59 Hospitalist ROS - Medication Medications: Active Medications Generic Name Dose Route Start Last Admin Trade Name Freq PRN Reason Stop Dose Admin Alprazolam 0.25 mg 01/31/20 21:00 02/01/20 08:37 Alprazolam 0.25 Mg Tab PO 0.25 mg BID RIANNA Administration Amlodipine Besylate 2.5 mg 01/31/20 21:00 01/31/20 19:52 Amlodipine 5 Mg Tab PO 2.5 mg HS RIANNA Administration Bupropion HCl 150 mg 02/01/20 09:00 02/01/20 08:36 Bupropion 150 Mg Xl Tab PO 150 mg QAM RIANNA Administration Calcium Citrate 950 mg 02/01/20 09:00 02/01/20 08:36 Calcium Citrate 950 Mg Tab PO 950 mg DAILY RIANNA Administration Carvedilol 25 mg 01/31/20 21:00 01/31/20 19:52 Carvedilol 25 Mg Tab PO 25 mg BID RIANNA Administration Mirabegron 50 mg 02/01/20 09:00 02/01/20 08:36 Mirabegron Er 25 Mg Tab PO 50 mg QAM RIANNA Administration Multivitamins 1 tab 02/01/20 09:00 02/01/20 08:37 Multivit, Therapeutic 1 Tab PO 1 tab DAILY RIANNA Administration Pantoprazole Sodium 40 mg 02/01/20 09:00 02/01/20 08:36 Pantoprazole 40 Mg Tab PO 40 mg DAILY RIANNA Administration Venlafaxine HCl 75 mg 02/01/20 09:00 02/01/20 08:36 Venlafaxine Hcl Xr 75 Mg Cap PO 75 mg DAILY RIANNA Administration - Exam General Appearance: awake alert Eye: PERRL, anicteric sclera ENT: no oropharyngeal lesions, moist mucosa Neck: supple, no JVD Heart: RRR, no murmur Respiratory: no wheezes, no rales Gastrointestinal: soft, non-tender, non-distended, normal bowel sounds Extremities: no cyanosis, no edema Neurological: cranial nerve grossly intact, no focal deficits Psychiatric: A&O x 3 Hosp A/P (1) Chest pain Code(s): R07.9 - CHEST PAIN, UNSPECIFIED Status: Acute (2) H/O malignant neoplasm of breast Code(s): Z85.3 - PERSONAL HISTORY OF MALIGNANT NEOPLASM OF BREAST Status: Chronic (3) UTI (urinary tract infection) Status: Acute Qualifiers: Urinary tract infection type: acute cystitis Hematuria presence: without hematuria Qualified Code(s): N30.00 - Acute cystitis without hematuria (4) Anxiety and depression Code(s): F41.8 - OTHER SPECIFIED ANXIETY DISORDERS Status: Chronic (5) HTN (hypertension) Code(s): I10 - ESSENTIAL (PRIMARY) HYPERTENSION Status: Chronic Qualifiers: Hypertension type: essential hypertension Qualified Code(s): I10 - Essential (primary) hypertension (6) Hyperlipidemia Code(s): E78.5 - HYPERLIPIDEMIA, UNSPECIFIED Status: Chronic Qualifiers: Hyperlipidemia type: unspecified Qualified Code(s): E78.5 - Hyperlipidemia, unspecified - Plan trop x3 is -ve echo shows normal ef await stress test, if neg may dc home hemostable continue home meds as above cipro for uti, has h/o recurrent uti in the past LDL is 156, will add lipitor to see if she will tolerate
--- NOTE | 2020-02-01 14:02 | CON ---
DATE OF CONSULTATION: 02/01/2020 REASON FOR CONSULTATION: Atypical chest pain. HISTORY OF PRESENT ILLNESS: Ms. Montez is an 84-year-old woman, who was seen and evaluated in the past. She recently presented with chest pain. Chest pain was felt to be sharp. It lasted for hours. Prior to presentation, it lasted all day. Her CKs, troponins have been negative. EKG also appeared to be negative. PAST MEDICAL HISTORY: Status post pacemaker, hypertension, chronic left bundle-branch block, depression, memory loss. HOME MEDICATIONS: Include, 1. Lisinopril. 2. Carvedilol. 3. Amlodipine. 4. Tylenol. 5. Calcium citrate. 6. Venlafaxine. 7. Prilosec. 8. Myrbetriq. 9. Bupropion. 10. Singulair. 11. Multivitamin. 12. Alprazolam. 13. Benadryl. 14. Potassium. REVIEW OF SYSTEMS: A 10-point review of systems is reviewed as above, otherwise negative. PHYSICAL EXAMINATION: GENERAL: Patient is a pleasant woman, who is in no acute distress. The patient appears their stated age. VITAL SIGNS: Blood pressure 135/87, pulse 82, temp 98.5. NEUROLOGIC: The patient is alert and oriented x3 with no focal neurologic deficits. HEENT: Sclerae without icterus. Mouth has moist mucous membranes with normal pallor. NECK: No JVD. Carotid upstroke brisk. No bruits bilaterally. LUNGS: Clear to auscultation with unlabored respirations. BACK: No scoliosis or kyphosis. CARDIAC: Regular rate and rhythm with normal S1 and S2. No S3 or S4 noted. No significant rubs, murmurs, thrills, or gallops noted throughout the precordium. PMI is not displaced. There is no parasternal heave. ABDOMEN: Soft, nontender, nondistended. No peritoneal signs present. No hepatosplenomegaly. No abnormal striae. EXTREMITIES: 2+ femoral and 2+ dorsalis pedis pulses. No cyanosis, clubbing, or edema. SKIN: No gross abnormalities. PERTINENT LABORATORY DATA: CK, troponin negative. EKG, atrial pacing with no ST-T wave changes suggesting ischemia. IMPRESSION: Atypical chest pain. RECOMMENDATIONS: Ms. Montez's symptoms are atypical. Her CKs, troponins are negative. Discussed inpatient versus outpatient stress study. She would like to proceed with inpatient stress study. We will order a Lexiscan Cardiolite. Further recommendations will be pending the above. If felt to be within normal limits, it would be okay from my standpoint to discharge home with close outpatient followup. Job ID: [id number]
--- NOTE | 2020-02-01 14:26 | NM ---
EXAM: NM Cardiac Stress W EF WF PROVIDED CLINICAL HISTORY: Chest pain. COMPARISON: 01/27/2017 FINDINGS: There is a small relatively fixed defect involving the ventricular apex. No significant reversible de fect is seen between the stress and resting acquisitions. Gated images demonstrate normal ventricular wall motion and wall thickening. The calculated left ventricular ejection fraction is 81% . Left ventricular ejection fraction on study in 2017 was 77%. IMPRESSION: 1. No significant reversible defect seen to suggest ischemia. Small relatively fixed defect in the ve ntricular apex may be related to apical thinning. 2. Normal LVEF of 81%.
[2020-02-01 15:58] VITALS: BP 131/68; TEMP 98.2
[2020-02-01] MEDS ORDERED: Ciprofloxacin 500 MG TAB PO SCH (20:00)
[2020-02-01] MEDS ORDERED: Atorvastatin Calcium 40 MG TAB PO SCH (21:00)
--- NOTE | 2020-02-02 16:22 | DIS ---
DATE OF ADMISSION: 01/31/2020 DATE OF DISCHARGE: 02/01/2020 DISCHARGE DISPOSITION: Home. PRIMARY DISCHARGE DIAGNOSIS: Chest pain, which is noncardiac. SECONDARY DISCHARGE DIAGNOSES: Urinary tract infection, hypertension, dyslipidemia, prior history of breast cancer. PROCEDURES DONE DURING HOSPITALIZATION: Chest x-ray done showed no acute cardiopulmonary process. Nuclear stress test done showed no reversible defect. There was a small relatively fixed defect in the left ventricular apex, may be related to apical thinning. Ejection fraction was 81%. Echo with 2D Doppler showed ejection fraction of 65% to 70%. There was diastolic dysfunction. Urine culture grew E coli, resistant to quinolones and sulfa, but sensitive to nitrofurantoin and cephalosporins. She had a white count of 11 on the day of admission, discharge white count of 9, H and H 13 and 41, platelet count 269, MCV 92. Troponin x3 negative. BUN and creatinine 19 and 0.9. Total cholesterol 247, triglycerides 188, LDL 156, HDL 53. DISCHARGE MEDICATIONS: 1. Norvasc 2.5 mg p.o. at bedtime. 2. Benadryl p.r.n. 3. Bupropion extended release 150 mg p.o. q.a.m. 4. Calcium citrate 1 tablet daily. 5. Coreg 25 mg twice daily. 6. K-Dur 10 mEq p.o. daily. 7. Singulair 10 mg p.o. q.a.m. 8. Multivitamin 1 tablet once daily. 9. Myrbetriq 50 mg extended release p.o. q.a.m. 10. Omeprazole 20 mg daily. 11. Venlafaxine extended release 75 mg p.o. daily. 12. Xanax 0.25 mg twice daily. 13. Lisinopril 20 mg p.o. q.a.m. 14. Atorvastatin 40 mg p.o. at bedtime. 15. Macrobid 100 mg twice daily for a total of 5 days. ALLERGIES: ALLERGIC TO CODEINE AND MORPHINE. DISCHARGE PLAN: The patient is to follow up with her primary care physician, Dr. Hoff, in 1 week; Dr. Birmingham in 2 to 3 weeks. BRIEF COURSE DURING HOSPITALIZATION: The patient initially came in with complaints of chest pain. In view of multiple risk factors, the patient was placed under observation on telemetry. ACS evidence-based protocol was followed. Three sets of troponin were done, which were negative. The patient opted for nuclear stress test, which was done, which did not reveal any reversible ischemia. She was also evaluated by Dr. Birmingham for Cardiology. Echo with 2D Doppler done did not reveal any significant wall motion abnormality. Her ejection fraction was normal. The patient has urinary tract infection with E coli and it is resistant to quinolones. She was sent home on ciprofloxacin and will be switched over to Macrobid 100 mg twice daily for a total of 5 days. Please see the [id number] documentation for the day of discharge. Job ID: [id number]
== END 2020-02-01 17:22 | disposition home or self-care (01) ==
LOC: ERS 13:16 → 2SW 16:12
PROVIDERS: ADMIT Family Medicine; ATTEND Family Medicine
DX: R07.89 Other chest pain (principal); N30.00 Acute cystitis without hematuria; B96.20 Unspecified Escherichia coli [E. coli] as the cause of diseases classified elsewhere; I11.0 Hypertensive heart disease with heart failure; I50.20 Unspecified systolic (congestive) heart failure; E78.5 Hyperlipidemia, unspecified; D72.829 Elevated white blood cell count, unspecified; N32.81 Overactive bladder; F41.8 Other specified anxiety disorders; I44.7 Left bundle-branch block, unspecified; Z16.23 Resistance to quinolones and fluoroquinolones; Z85.3 Personal history of malignant neoplasm of breast; Z87.891 Personal history of nicotine dependence; Z79.899 Other long term (current) drug therapy; Z88.5 Allergy status to narcotic agent; Z95.0 Presence of cardiac pacemaker
CPT/HCPCS: 71045; 78452; 80048; 80061; 81001; 82550; 83690; 83735; 84484 ×2; 85025; 87077; 87086; 87186; 93005; 93017; 93306; 94760; 99285; A9500; G0378 ×3; 36415; 80053; 84443; J0153

== ENCOUNTER 2020-03-16 10:53 | Emergency (ER) | payer MEDICARE, OTHER ==
[2020-03-16 11:40] LABS: #Eosinphils 0.2 thou/uL (0.0-0.7); #Lymphocytes 1.6 thou/uL (1.20-3.40); #Monocytes 0.8 thou/uL (0.11-0.59); #Neutrophils 10.8 thou/uL (1.40-6.50); %Basophils 0.3 % (0.0-1.0); %Eosinophils 1.6 % (0.0-10.0); %Lymphocytes 11.7 % (21.0-51.0); %Monocytes 6.2 % (0.0-10.0); %Neutrophils 80.3 % (42.0-75.0); Hemoglobin 12.7 g/dL (12.0-16.0); Mean Corpuscular HGB CONC 33.5 g/dL (32.0-36.0); Mean Corpuscular Hemoglobin 31.1 pg (27.0-31.0); Mean Platelet Volume 7.4 fL (7.4-10.4); Platelet Count 392 thou/uL (130-400); RBC Distribution Width 12.1 % (11.5-14.5); Red Blood Cell (RBC) Count 4.07 mill/uL (4.20-5.40); White Blood Cell (WBC) Count 13.4 thou/uL (4.8-10.8)
--- NOTE | 2020-03-16 11:54 | RAD ---
EXAM: CHEST ONE VIEW HISTORY: Covid infection, weakness. COMPARISON: 01/31/2020 FINDINGS: The a dual-lead left subclavian cardiac pacemaking device remains in place. Surgical clips again over lie the left chest. Cardiac silhouette and pulmonary vasculature are within normal limits. The lungs are clear. Postoperative changes right shoulder are again seen. IMPRESSION: No acute cardiopulmonary process. Chest radiographs exhibit low sensitivity for evaluation of subtle groundglass opacities which can be seen with viral pneumonitis such as Covid 19.
[2020-03-16 12:00] LABS: ALT (SGPT) 9 U/L (8-55); AST (SGOT) 14 U/L (5-34); Albumin 3.8 g/dL (3.4-4.8); Alcohol Less than 10 mg/dL (Less than 10); Alkaline Phosphatase 84 U/L (40-110); Anion Gap 14 mmol/L (10-20); BUN (Urea Nitrogen) 17 mg/dL (9.8-20.1); Bilirubin, Total 0.3 mg/dL (0.2-1.2); Calc. Creatinine Clearance 0 mL/min (70-130); Carbon Dioxide 28 mmol/L (23-31); Chloride 101 mmol/L (98-107); Estimated GFR-MDRD 63; Globulin 2.6 g/dL (2.4-3.5); Glucose 119 mg/dL (83-110); Potassium 4.6 mmol/L (3.5-5.1); Protein, Total 6.4 g/dL (6.0-8.3); Salicylate Less than 8.0 mg/dL (15.0-30.0); Sodium 138 mmol/L (136-145)
[2020-03-16 12:02] LABS: Bilirubin Negative (Negative); Blood, Urine Negative (Negative); Clarity Clear (Clear); Glucose, Urine (Dipstick) Normal (Negative); Ketone, Urine Negative (Negative); Leukocyte Negative Leu/uL (Negative); Nitrite Negative (Negative); Protein, Urine (Dipstick) 20 mg/dL (Neg-Trace); Specific Gravity, Urine 1.029 (1.002-1.036); Urobilinogen Normal mg/dL (Less than 2); pH, Urine 6.5 (5.0-9.0)
[2020-03-16 12:19] LABS: Amphetamine Not Detected (NotDetected); Barbiturates Screen Not Detected (NotDetected); Benzodiazepine Screen Detected (NotDetected); Cocaine Metabolite Screen Not Detected (NotDetected); Medtox Control Line Valid? VALID (VALID); Medtox Reader # READER 4; Methadone Not Detected (NotDetected); Methamphetamine Not Detected (NotDetected); Opiate Screen Not Detected (NotDetected); Oxycodone Screen Not Detected (NotDetected); Phencyclidine (PCP) Not Detected (NotDetected); THC/Cannabinoid Screen Not Detected (NotDetected); Tricyclic Screen Not Detected (NotDetected)
== END 2020-03-16 17:25 ==
LOC: ERS 10:53
DX: U07.1 COVID-19 (principal); E78.5 Hyperlipidemia, unspecified; F41.9 Anxiety disorder, unspecified; I10 Essential (primary) hypertension; F32.9 Major depressive disorder, single episode, unspecified; Z79.899 Other long term (current) drug therapy; Z85.828 Personal history of other malignant neoplasm of skin; Z85.3 Personal history of malignant neoplasm of breast
CPT/HCPCS: 36415; 71045; 80053; 80306; 80307; 81003; 84484; 85025; 93005

== ENCOUNTER 2020-03-24 01:48 | Emergency (ER) | payer MEDICARE, OTHER ==
[2020-03-24] MEDS ORDERED: diphenhydrAMINE 25 MG CAP ONE (02:57)
== END 2020-03-24 03:02 | disposition home or self-care (01) ==
LOC: ERS 01:48
DX: G47.00 Insomnia, unspecified (principal); E78.5 Hyperlipidemia, unspecified; Z85.828 Personal history of other malignant neoplasm of skin; Z85.3 Personal history of malignant neoplasm of breast; Z79.899 Other long term (current) drug therapy
CPT/HCPCS: 99283; Q0163

== ENCOUNTER 2020-06-20 07:56 | Inpatient (IN) | payer MEDICARE, OTHER ==
[2020-06-20] MEDS ORDERED: Ketorolac Tromethamine 30 MG/ML VIAL ONE (08:41)
[2020-06-20 09:00] LABS: #Eosinphils 0.4 thou/uL (0.0-0.7); #Lymphocytes 1.8 thou/uL (1.20-3.40); #Monocytes 0.8 thou/uL (0.11-0.59); #Neutrophils 7.7 thou/uL (1.40-6.50); %Basophils 0.4 % (0.0-1.0); %Eosinophils 3.8 % (0.0-10.0); %Lymphocytes 16.9 % (21.0-51.0); %Monocytes 7.7 % (0.0-10.0); %Neutrophils 71.2 % (42.0-75.0); Hemoglobin 13.8 g/dL (12.0-16.0); Mean Corpuscular HGB CONC 33.9 g/dL (32.0-36.0); Mean Corpuscular Hemoglobin 32.4 pg (27.0-31.0); Mean Corpuscular Volume 95.5 fL (78.0-98.0); Mean Platelet Volume 8.5 fL (7.4-10.4); Platelet Count 295 thou/uL (130-400); RBC Distribution Width 12.8 % (11.5-14.5); Red Blood Cell (RBC) Count 4.28 mill/uL (4.20-5.40); White Blood Cell (WBC) Count 10.8 thou/uL (4.8-10.8)
[2020-06-20 09:19] LABS: ALT (SGPT) 13 U/L (8-55); AST (SGOT) 27 U/L (5-34); Alkaline Phosphatase 55 U/L (40-110); Anion Gap 16 mmol/L (10-20); BUN (Urea Nitrogen) 10 mg/dL (9.8-20.1); Bilirubin, Total 0.4 mg/dL (0.2-1.2); Calc. Creatinine Clearance 0 mL/min (70-130); Calcium 8.8 mg/dL (7.8-10.44); Carbon Dioxide 24 mmol/L (23-31); Chloride 102 mmol/L (98-107); Globulin 2.4 g/dL (2.4-3.5); Glucose 112 mg/dL (83-110); Lipase 42 U/L (8-78); Potassium 4.1 mmol/L (3.5-5.1); Protein, Total 6.4 g/dL (5.8-8.1); Sodium 138 mmol/L (136-145)
[2020-06-20 10:25] LABS: Bilirubin Negative (Negative); Blood, Urine Negative (Negative); Clarity Clear (Clear); Glucose, Urine (Dipstick) Normal (Negative); Ketone, Urine Negative (Negative); Leukocyte Negative Leu/uL (Negative); Nitrite Negative (Negative); Protein, Urine (Dipstick) Negative (Neg-Trace); Specific Gravity, Urine 1.014 (1.002-1.036); Urobilinogen Normal mg/dL (Less than 2)
[2020-06-20] MEDS ORDERED: Iopamidol-370 76% 500 ML 1 ML ONE (11:01)
[2020-06-20] MEDS ORDERED: Ondansetron PF 4 MG/2 ML Vial IVP PRN (12:00)
[2020-06-20] MEDS ORDERED: Acetaminophen 325 MG TAB PO PRN (12:00)
[2020-06-20] MEDS ORDERED: Ondansetron ODT 4 MG TAB SL PRN (12:00)
[2020-06-20 15:18] VITALS: BMI 22.0
[2020-06-20] MEDS ORDERED: hydrALAZINE 20 MG/ML VIAL SLOW IVP PRN (18:39)
[2020-06-20] MEDS ORDERED: GoLYTELY 4,000 ml Bottle PO SCH (19:00)
[2020-06-20] MEDS: ALPRAZolam 0.25 MG TAB PO SCH (21:33)
[2020-06-20] MEDS: Donepezil HCl 10 MG TAB PO SCH (21:33)
[2020-06-20] MEDS: Atorvastatin Calcium 40 MG TAB PO SCH (21:33)
[2020-06-20] MEDS: Amlodipine 5 MG TAB PO SCH (21:33)
[2020-06-21] MEDS: Melatonin 3 MG TAB PO PRN ×2 (01:12→21:27)
[2020-06-21 02:31] LABS: SARS-CoV-2 PCR by NAA Not Detected (NotDetected)
[2020-06-21 06:48] LABS: #Basophils 0.1 thou/uL (0.0-0.2); #Eosinphils 0.5 thou/uL (0.0-0.7); #Lymphocytes 2.4 thou/uL (1.20-3.40); #Monocytes 1.4 thou/uL (0.11-0.59); #Neutrophils 9.2 thou/uL (1.40-6.50); %Basophils 0.5 % (0.0-1.0); %Eosinophils 3.4 % (0.0-10.0); %Lymphocytes 18.1 % (21.0-51.0); %Monocytes 10.1 % (0.0-10.0); Hemoglobin 14.7 g/dL (12.0-16.0); Mean Corpuscular HGB CONC 34.2 g/dL (32.0-36.0); Mean Corpuscular Hemoglobin 32.7 pg (27.0-31.0); Mean Corpuscular Volume 95.5 fL (78.0-98.0); Mean Platelet Volume 8.4 fL (7.4-10.4); Platelet Count 350 thou/uL (130-400); RBC Distribution Width 12.9 % (11.5-14.5); White Blood Cell (WBC) Count 13.5 thou/uL (4.8-10.8)
[2020-06-21 07:11] LABS: Anion Gap 16 mmol/L (10-20); BUN (Urea Nitrogen) 8 mg/dL (9.8-20.1); Calc. Creatinine Clearance 50 mL/min (70-130); Calcium 8.9 mg/dL (7.8-10.44); Carbon Dioxide 26 mmol/L (23-31); Chloride 99 mmol/L (98-107); Glucose 115 mg/dL (83-110); Potassium 3.1 mmol/L (3.5-5.1); Sodium 138 mmol/L (136-145)
[2020-06-21] MEDS: Potassium Chloride 10 MEQ TAB PO SCH (08:14)
[2020-06-21] MEDS ORDERED: Potassium Chloride 20 MEQ TAB PO SCH (08:30)
[2020-06-21] MEDS: ALPRAZolam 0.25 MG TAB PO SCH ×2 (09:18→20:39)
[2020-06-21] MEDS: Bupropion 150 MG XL TAB PO SCH (09:18)
[2020-06-21] MEDS ORDERED: PROPOFOL 200 MG/20 ML VIAL ONE (09:23)
[2020-06-21] MEDS ORDERED: Midazolam HCl 2 mg/2 ml Vial ONE (13:38)
[2020-06-21] MEDS ORDERED: Electrolyte Replacement Protocol 1 EACH FS SCH (14:15)
[2020-06-21] MEDS ORDERED: ALPRAZolam 0.25 MG TAB PO SCH (16:15)
[2020-06-21] MEDS: Donepezil HCl 10 MG TAB PO SCH (20:39)
[2020-06-21] MEDS: Atorvastatin Calcium 40 MG TAB PO SCH (20:39)
[2020-06-21] MEDS: Amlodipine 5 MG TAB PO SCH (20:40)
[2020-06-22 05:55] LABS: #Basophils 0.1 thou/uL (0.0-0.2); #Eosinphils 0.4 thou/uL (0.0-0.7); #Lymphocytes 2.7 thou/uL (1.20-3.40); #Monocytes 1.6 thou/uL (0.11-0.59); #Neutrophils 10.1 thou/uL (1.40-6.50); %Basophils 0.5 % (0.0-1.0); %Eosinophils 2.4 % (0.0-10.0); %Monocytes 10.5 % (0.0-10.0); %Neutrophils 68.5 % (42.0-75.0); Hemoglobin 15.5 g/dL (12.0-16.0); Mean Corpuscular HGB CONC 33.2 g/dL (32.0-36.0); Mean Corpuscular Volume 96.5 fL (78.0-98.0); Mean Platelet Volume 8.5 fL (7.4-10.4); Platelet Count 292 thou/uL (130-400); RBC Distribution Width 13.2 % (11.5-14.5); Red Blood Cell (RBC) Count 4.84 mill/uL (4.20-5.40); White Blood Cell (WBC) Count 14.8 thou/uL (4.8-10.8)
[2020-06-22 06:16] LABS: Anion Gap 16 mmol/L (10-20); BUN (Urea Nitrogen) 14 mg/dL (9.8-20.1); Calc. Creatinine Clearance 43 mL/min (70-130); Calcium 8.9 mg/dL (7.8-10.44); Carbon Dioxide 23 mmol/L (23-31); Chloride 104 mmol/L (98-107); Glucose 111 mg/dL (83-110); Potassium 3.9 mmol/L (3.5-5.1); Sodium 139 mmol/L (136-145)
[2020-06-22] MEDS ORDERED: Magnesium 2 GM/50 ML 2 GM in Premix Bag 1 BAG IVPB SCH (06:45)
[2020-06-22] MEDS: Bupropion 150 MG XL TAB PO SCH (09:02)
[2020-06-22] MEDS: ALPRAZolam 0.25 MG TAB PO SCH ×2 (09:02→20:27)
[2020-06-22] MEDS: Potassium Chloride 10 MEQ TAB PO SCH (09:02)
[2020-06-22] MEDS: Melatonin 3 MG TAB PO PRN (20:25)
[2020-06-22] MEDS: Amlodipine 5 MG TAB PO SCH (20:26)
[2020-06-22] MEDS: Donepezil HCl 10 MG TAB PO SCH (20:27)
[2020-06-22] MEDS: Atorvastatin Calcium 40 MG TAB PO SCH (20:27)
[2020-06-23] MEDS ORDERED: traMADol HCl 50 MG TAB PO SCH (03:30)
[2020-06-23] MEDS: Bupropion 150 MG XL TAB PO SCH (09:26)
[2020-06-23] MEDS: ALPRAZolam 0.25 MG TAB PO SCH ×2 (09:26→19:54)
[2020-06-23] MEDS: Potassium Chloride 10 MEQ TAB PO SCH (09:27)
[2020-06-23] MEDS: Acetaminophen 325 MG TAB PO PRN ×2 (11:17→19:55)
[2020-06-23] MEDS: Atorvastatin Calcium 40 MG TAB PO SCH (19:54)
[2020-06-23] MEDS: Donepezil HCl 10 MG TAB PO SCH (19:54)
[2020-06-23] MEDS: Amlodipine 5 MG TAB PO SCH (19:55)
[2020-06-24] MEDS: ALPRAZolam 0.25 MG TAB PO SCH ×2 (09:05→19:51)
[2020-06-24] MEDS: Bupropion 150 MG XL TAB PO SCH (09:05)
[2020-06-24] MEDS: Potassium Chloride 10 MEQ TAB PO SCH (09:06)
[2020-06-24] MEDS: Amlodipine 5 MG TAB PO SCH (19:52)
[2020-06-24] MEDS: Atorvastatin Calcium 40 MG TAB PO SCH (19:53)
[2020-06-24] MEDS: Acetaminophen 325 MG TAB PO PRN (19:54)
[2020-06-24] MEDS: Donepezil HCl 10 MG TAB PO SCH (19:55)
[2020-06-24] MEDS: Melatonin 3 MG TAB PO PRN (21:26)
[2020-06-25] MEDS: Bupropion 150 MG XL TAB PO SCH (08:56)
[2020-06-25] MEDS: ALPRAZolam 0.25 MG TAB PO SCH ×2 (08:57→19:40)
[2020-06-25] MEDS: Potassium Chloride 10 MEQ TAB PO SCH (08:57)
[2020-06-25 12:19] LABS: Anion Gap 15 mmol/L (10-20); BUN (Urea Nitrogen) 14 mg/dL (9.8-20.1); Calc. Creatinine Clearance 44 mL/min (70-130); Calcium 8.6 mg/dL (7.8-10.44); Carbon Dioxide 22 mmol/L (23-31); Chloride 108 mmol/L (98-107); Glucose 82 mg/dL (83-110); Potassium 4.1 mmol/L (3.5-5.1); Sodium 141 mmol/L (136-145)
[2020-06-25] MEDS: Loperamide HCl 2 MG CAP PO PRN (13:35)
[2020-06-25] MEDS: Acetaminophen 325 MG TAB PO PRN ×2 (13:35→19:37)
[2020-06-25] MEDS: Amlodipine 5 MG TAB PO SCH (19:39)
[2020-06-25] MEDS: Atorvastatin Calcium 40 MG TAB PO SCH (19:40)
[2020-06-25] MEDS: Donepezil HCl 10 MG TAB PO SCH (19:40)
[2020-06-25] MEDS: Melatonin 3 MG TAB PO PRN (20:53)
[2020-06-26] MEDS: Bupropion 150 MG XL TAB PO SCH (08:00)
[2020-06-26] MEDS: ALPRAZolam 0.25 MG TAB PO SCH ×2 (08:00→20:53)
[2020-06-26] MEDS: Floranex Packet PO SCH (08:00)
[2020-06-26] MEDS: Potassium Chloride 10 MEQ TAB PO SCH (08:00)
[2020-06-26] MEDS: Loperamide HCl 2 MG CAP PO PRN (11:17)
[2020-06-26] MEDS: Acetaminophen 325 MG TAB PO PRN (15:35)
[2020-06-26] MEDS: Amlodipine 5 MG TAB PO SCH (20:52)
[2020-06-26] MEDS: Donepezil HCl 10 MG TAB PO SCH (20:53)
[2020-06-26] MEDS: Melatonin 3 MG TAB PO PRN (20:53)
[2020-06-26] MEDS: Atorvastatin Calcium 40 MG TAB PO SCH (20:53)
[2020-06-27 06:08] LABS: #Basophils 0.1 thou/uL (0.0-0.2); #Eosinphils 0.5 thou/uL (0.0-0.7); #Lymphocytes 2.3 thou/uL (1.20-3.40); #Monocytes 0.8 thou/uL (0.11-0.59); #Neutrophils 5.3 thou/uL (1.40-6.50); %Basophils 0.6 % (0.0-1.0); %Eosinophils 5.2 % (0.0-10.0); %Lymphocytes 25.9 % (21.0-51.0); %Monocytes 8.5 % (0.0-10.0); %Neutrophils 59.8 % (42.0-75.0); Hemoglobin 13.4 g/dL (12.0-16.0); Mean Corpuscular HGB CONC 32.8 g/dL (32.0-36.0); Mean Corpuscular Hemoglobin 31.9 pg (27.0-31.0); Mean Corpuscular Volume 97.3 fL (78.0-98.0); Mean Platelet Volume 9.1 fL (7.4-10.4); Platelet Count 276 thou/uL (130-400); RBC Distribution Width 12.7 % (11.5-14.5); Red Blood Cell (RBC) Count 4.21 mill/uL (4.20-5.40); White Blood Cell (WBC) Count 8.9 thou/uL (4.8-10.8)
[2020-06-27 06:26] LABS: Anion Gap 14 mmol/L (10-20); BUN (Urea Nitrogen) 13 mg/dL (9.8-20.1); Calc. Creatinine Clearance 52 mL/min (70-130); Calcium 8.8 mg/dL (7.8-10.44); Carbon Dioxide 23 mmol/L (23-31); Chloride 107 mmol/L (98-107); Glucose 94 mg/dL (83-110); Potassium 3.9 mmol/L (3.5-5.1); Sodium 140 mmol/L (136-145)
[2020-06-27] MEDS: Floranex Packet PO SCH (08:34)
[2020-06-27] MEDS: Potassium Chloride 10 MEQ TAB PO SCH (08:35)
[2020-06-27] MEDS: Bupropion 150 MG XL TAB PO SCH (08:35)
[2020-06-27] MEDS: ALPRAZolam 0.25 MG TAB PO SCH (08:35)
[2020-06-27 09:22] VITALS: BP 176/91; TEMP 97.5
[2020-06-27] MEDS: Acetaminophen 325 MG TAB PO PRN (13:22)
== END 2020-06-27 15:15 | DRG 392 ==
LOC: ERS 07:56 → T4-A 12:04 → OBSVTOIN 06-24 13:36
PROVIDERS: ADMIT Internal Medicine; ATTEND Internal Medicine
PROC: 0DB98ZX Excision of Duodenum, Via Natural or Artificial Opening Endoscopic, Diagnostic (ICD-10-PCS; principal; 2020-06-24)
PROC: 0DBN8ZX Excision of Sigmoid Colon, Via Natural or Artificial Opening Endoscopic, Diagnostic (ICD-10-PCS; 2020-06-24)
DX: K57.30 Diverticulosis of large intestine without perforation or abscess without bleeding (principal); E44.0 Moderate protein-calorie malnutrition; I10 Essential (primary) hypertension; F03.90 Unspecified dementia, unspecified severity, without behavioral disturbance, psychotic disturbance, mood disturbance, and anxiety; R63.4 Abnormal weight loss; K44.9 Diaphragmatic hernia without obstruction or gangrene; K59.00 Constipation, unspecified; F41.8 Other specified anxiety disorders; Z85.3 Personal history of malignant neoplasm of breast; Z95.0 Presence of cardiac pacemaker; Z90.710 Acquired absence of both cervix and uterus; Z79.899 Other long term (current) drug therapy; Z86.16 Personal history of COVID-19; Z88.5 Allergy status to narcotic agent; Z68.22 Body mass index [BMI] 22.0-22.9, adult
CPT/HCPCS: 36415; 74177; 80048; 80053; 81003; 83690; 83735; 84484; 85025; 87635; 88305; 93005; 96374; 96375; G0378; J0360; J1885; J2250; J2704; J3475; Q9967; U0003; U0005

== ENCOUNTER 2021-02-03 04:15 | Emergency (ER) | payer MEDICARE, OTHER ==
[2021-02-03] MEDS ORDERED: Fentanyl 100 MCG/2 ML VIAL ONE (04:36)
[2021-02-03 04:59] LABS: Bilirubin Negative (Negative); Blood, Urine Negative (Negative); Clarity Clear (Clear); Glucose, Urine (Dipstick) Normal (Negative); Ketone, Urine Negative (Negative); Leukocyte Negative Leu/uL (Negative); Nitrite Negative (Negative); Protein, Urine (Dipstick) Negative (Neg-Trace); Specific Gravity, Urine 1.011 (1.002-1.036); Urobilinogen Normal mg/dL (Less than 2)
[2021-02-03 05:27] LABS: #Basophils 0.1 thou/uL (0.0-0.2); #Eosinphils 0.4 thou/uL (0.0-0.7); #Lymphocytes 2.9 thou/uL (1.20-3.40); #Monocytes 1.2 thou/uL (0.11-0.59); %Basophils 0.6 % (0.0-1.0); %Eosinophils 3.2 % (0.0-10.0); %Lymphocytes 23.3 % (21.0-51.0); %Monocytes 9.5 % (0.0-10.0); %Neutrophils 63.5 % (42.0-75.0); Mean Corpuscular HGB CONC 34.4 g/dL (32.0-36.0); Mean Corpuscular Hemoglobin 32.4 pg (27.0-31.0); Mean Corpuscular Volume 94.2 fL (78.0-98.0); Mean Platelet Volume 8.5 fL (7.4-10.4); Platelet Count 246 thou/uL (130-400); RBC Distribution Width 12.6 % (11.5-14.5); Red Blood Cell (RBC) Count 4.94 mill/uL (4.20-5.40); White Blood Cell (WBC) Count 12.6 thou/uL (4.8-10.8)
[2021-02-03 05:55] LABS: ALT (SGPT) 15 U/L (8-55); AST (SGOT) 26 U/L (5-34); Albumin 4.3 g/dL (3.4-4.8); Alkaline Phosphatase 73 U/L (40-110); Anion Gap 17 mmol/L (10-20); BUN (Urea Nitrogen) 13 mg/dL (9.8-20.1); Bilirubin, Total 0.6 mg/dL (0.2-1.2); Calc. Creatinine Clearance 0 mL/min (70-130); Carbon Dioxide 21 mmol/L (23-31); Chloride 105 mmol/L (98-107); Glucose 105 mg/dL (83-110); Lipase 99 U/L (8-78); Potassium 4.5 mmol/L (3.5-5.1); Protein, Total 7.3 g/dL (5.8-8.1); Sodium 138 mmol/L (136-145)
[2021-02-03] MEDS ORDERED: Ondansetron PF 4 MG/2 ML Vial ONE (06:20)
== END 2021-02-03 07:59 | disposition short-term general hospital (02) ==
LOC: ERS 04:15
DX: R10.31 Right lower quadrant pain (principal); E78.5 Hyperlipidemia, unspecified; I10 Essential (primary) hypertension
CPT/HCPCS: 36415; 51701; 74177; 80053; 81003; 83605; 83690; 85025; 93005; 96374; 96375; J2405; J3010

== ENCOUNTER 2021-07-14 09:10 | Outpatient (CLI) | payer MEDICARE, OTHER | END 2021-07-14 09:11 | disposition home or self-care (01) | LOC: BICRAD 09:10 | PROVIDERS: ATTEND Family Medicine | DX: R05.9 Cough, unspecified (principal) | CPT/HCPCS: 71046 ==

== ENCOUNTER 2022-01-06 18:27 | Observation (INO) | payer MEDICARE, OTHER ==
[~2022-01-06 18:27] MED LIST changes: -ISOVUE-370 76%-LOCM 1 ML ONE; +Iopamidol-370 76% 500 ML 1 ML ONE
[2022-01-06] MEDS ORDERED: Naloxone HCl 2 mg/2 ml Syringe ONE (18:39)
[2022-01-06 18:43] LABS: #Eosinphils 0.1 thou/uL (0.0-0.7); #Lymphocytes 1.5 thou/uL (1.20-3.40); #Monocytes 0.8 thou/uL (0.11-0.59); #Neutrophils 4.9 thou/uL (1.40-6.50); %Basophils 0.6 % (0.0-1.0); %Eosinophils 0.9 % (0.0-10.0); %Lymphocytes 20.5 % (21.0-51.0); %Monocytes 10.8 % (0.0-10.0); %Neutrophils 67.2 % (42.0-75.0); Hemoglobin 12.6 g/dL (12.0-16.0); Mean Corpuscular HGB CONC 32.4 g/dL (32.0-36.0); Mean Corpuscular Hemoglobin 31.4 pg (27.0-31.0); Mean Corpuscular Volume 97.1 fL (78.0-98.0); Mean Platelet Volume 9.1 fL (7.4-10.4); Platelet Count 196 thou/uL (130-400); RBC Distribution Width 12.3 % (11.5-14.5); Red Blood Cell (RBC) Count 4.01 mill/uL (4.20-5.40); White Blood Cell (WBC) Count 7.2 thou/uL (4.8-10.8)
[2022-01-06 18:57] LABS: INR-International Normal Ratio 1.2; PTT 24.4 sec (22.9-36.1); Prothrombin Time 14.8 sec (12.0-14.7)
[2022-01-06 19:07] LABS: ALT (SGPT) 13 U/L (8-55); AST (SGOT) 19 U/L (5-34); Alkaline Phosphatase 61 U/L (40-110); Anion Gap 17 mmol/L (10-20); BUN (Urea Nitrogen) 21 mg/dL (9.8-20.1); Bilirubin, Total 0.5 mg/dL (0.2-1.2); Calc. Creatinine Clearance 0 mL/min (70-130); Calcium 8.9 mg/dL (7.8-10.44); Carbon Dioxide 23 mmol/L (23-31); Chloride 105 mmol/L (98-107); Estimated GFR 60; Globulin 1.9 g/dL (2.4-3.5); Glucose 155 mg/dL (83-110); Potassium 3.5 mmol/L (3.5-5.1); Protein, Total 5.9 g/dL (5.8-8.1); Sodium 141 mmol/L (136-145)
[2022-01-06] MEDS ORDERED: Acetaminophen 325 MG TAB PO PRN (20:54)
[2022-01-06] MEDS ORDERED: Acetaminophen 650 MG Suppository PR PRN (20:54)
[2022-01-06] MEDS ORDERED: Ondansetron PF 4 MG/2 ML Vial IVP PRN (20:54)
[2022-01-06] MEDS ORDERED: Ondansetron ODT 4 MG TAB PO PRN (20:54)
[2022-01-06 21:27] VITALS: BMI 25.4
[2022-01-07 05:41] LABS: #Eosinphils 0.1 thou/uL (0.0-0.7); #Lymphocytes 1.9 thou/uL (1.20-3.40); #Monocytes 0.8 thou/uL (0.11-0.59); #Neutrophils 4.4 thou/uL (1.40-6.50); %Basophils 0.4 % (0.0-1.0); %Eosinophils 1.7 % (0.0-10.0); %Lymphocytes 25.8 % (21.0-51.0); %Monocytes 10.8 % (0.0-10.0); %Neutrophils 61.3 % (42.0-75.0); Hemoglobin 12.3 g/dL (12.0-16.0); Mean Corpuscular HGB CONC 32.9 g/dL (32.0-36.0); Mean Corpuscular Hemoglobin 31.5 pg (27.0-31.0); Mean Corpuscular Volume 95.8 fL (78.0-98.0); Mean Platelet Volume 9.3 fL (7.4-10.4); Platelet Count 184 thou/uL (130-400); RBC Distribution Width 12.3 % (11.5-14.5); White Blood Cell (WBC) Count 7.2 thou/uL (4.8-10.8)
[2022-01-07 06:07] LABS: Anion Gap 13 mmol/L (10-20); BUN (Urea Nitrogen) 17 mg/dL (9.8-20.1); Calc. Creatinine Clearance 55 mL/min (70-130); Calcium 8.5 mg/dL (7.8-10.44); Carbon Dioxide 26 mmol/L (23-31); Cardiac Risk 2.4 (Less than 4.5); Chloride 106 mmol/L (98-107); Cholesterol 137 mg/dl (< 200 Desired); Estimated GFR 77; Glucose 94 mg/dL (83-110); HDL Cholesterol 57 mg/dL (>60 Neg Risk); LDL Cholesterol, Calculated 67 mg/dL; Potassium 3.6 mmol/L (3.5-5.1); Sodium 141 mmol/L (136-145); Triglycerides 67 mg/dL (Less than 150)
[2022-01-07] MEDS: Enoxaparin Sodium 40 MG/0.4 ML SYRINGE SC SCH (08:46)
[2022-01-07] MEDS ORDERED: ALPRAZolam 1 MG TAB PO PRN (10:32)
[2022-01-07 10:54] LABS: Bacteria/HPF 3+ HPF (None Seen); RBC/HPF 0-3 HPF (0-3); Squamous Epithelial 0-3 HPF (0-3)
[2022-01-07] MEDS ORDERED: Aspirin 325 mg Enteric Coated Tablet PO SCH (14:45)
[2022-01-07] MEDS ORDERED: cefTRIAXone\\ROCEPHIN 1 GM in Sodium Chloride 0.9% 100 ML IVPB SCH (15:30)
[2022-01-07] MEDS ORDERED: Donepezil HCl 5 MG TAB PO SCH (21:00)
[2022-01-07] MEDS ORDERED: Atorvastatin Calcium 40 MG TAB PO SCH (21:00)
[2022-01-07] MEDS ORDERED: Amlodipine 5 MG TAB PO SCH (21:00)
[2022-01-08] MEDS ORDERED: Multivit, Therapeutic 1 TAB PO SCH (09:00)
[2022-01-08] MEDS ORDERED: Polyethylene Glycol 3350 17 GM Packet PO SCH (09:00)
[2022-01-08] MEDS ORDERED: Montelukast Sodium 10 mg Tablet PO SCH (09:00)
[2022-01-08] MEDS ORDERED: Aspirin 325 mg Enteric Coated Tablet PO SCH (09:00)
[2022-01-08] MEDS ORDERED: Venlafaxine HCl XR 75 MG CAP PO SCH (09:00)
[2022-01-08] MEDS ORDERED: Potassium Chloride 10 MEQ TAB PO SCH (09:00)
[2022-01-08] MEDS ORDERED: Non-Formulary Item 1 EACH (Omeprazole Magnesium [Prilosec] 10 MG Suspdr.Pkt) PO SCH (09:00)
[2022-01-08] MEDS: Enoxaparin Sodium 40 MG/0.4 ML SYRINGE SC SCH (09:18)
[2022-01-08 12:01] VITALS: TEMP 96.7
[2022-01-08 13:22] VITALS: BP 139/71
== END 2022-01-08 15:37 | disposition home or self-care (01) ==
LOC: ERS 18:27 → NEURO 19:52
PROVIDERS: ADMIT Internal Medicine; ATTEND Internal Medicine
DX: G45.9 Transient cerebral ischemic attack, unspecified (principal); N39.0 Urinary tract infection, site not specified; B96.20 Unspecified Escherichia coli [E. coli] as the cause of diseases classified elsewhere; I72.5 Aneurysm of other precerebral arteries; F03.90 Unspecified dementia, unspecified severity, without behavioral disturbance, psychotic disturbance, mood disturbance, and anxiety; I10 Essential (primary) hypertension; E78.5 Hyperlipidemia, unspecified; J32.0 Chronic maxillary sinusitis; I07.1 Rheumatic tricuspid insufficiency; Z85.3 Personal history of malignant neoplasm of breast; Z79.899 Other long term (current) drug therapy; Z88.5 Allergy status to narcotic agent; Z95.0 Presence of cardiac pacemaker; Z20.822 Contact with and (suspected) exposure to COVID-19
CPT/HCPCS: 70450; 70496; 70498; 71045; 80048; 80053; 80061; 81015; 84484; 85025 ×2; 85610; 85730; 87077; 87086; 87186; 93005; 93306; 94760; 96372 ×2; 96374; 96375; 97116; 99285; G0378 ×4; U0003; U0005; 36415; J0696; J1650; J2310; J3490; Q9967